=== PATIENT | male | born 1945 | race Caucasian/White ===

== ENCOUNTER 2021-12-16 12:32 | Outpatient (REF) | payer OTHER, SELFPAY ==
[2021-12-16 13:43] LABS: MANUAL DIFF FLAG NO
[2021-12-16 13:47] LABS: Basophils Percent Auto 0.5 % (0-2); Eosinophils Absolute Auto 0.2 X10*3/uL (0.0-0.4); Eosinophils Percent Auto 3.3 % (0-4); Hematocrit 39.7 % (42.0-52.0); Hemoglobin 13.4 g/dl (14.0-18.0); Imm Gran Abs Auto 0.01 X10*3/uL (0.00-0.03); Imm Gran Pct Auto 0.2 % (0.0-0.4); Lymphocytes Absolute Auto 1.7 X10*3/uL (1.2-4.9); Lymphocytes Percent Auto 30.4 % (20-40); Mean Corpuscular HGB Conc 33.8 g/dl (31.0-36.0); Mean Corpuscular Hemoglobin 31.9 pg (27.0-33.0); Mean Corpuscular Volume 94.5 fL (80.0-98.0); Monocytes Absolute Auto 0.4 X10*3/uL (0.1-1.2); Monocytes Percent Auto 7.8 % (2-11); Neutrophils Absolute Auto 3.2 x10*3/uL (2.0-8.3); Neutrophils Percent Auto 57.8 % (45-73); Platelet Count 215 X10*3/uL (160-400); Red Cell Distribution Width 12.1 % (11.0-16.0); White Blood Count 5.5 X10*3/uL (4.8-10.8)
[2021-12-16 14:24] LABS: Erythrocyte Sedimentation Rate 16 MM/HR (0-15)
[2021-12-16 14:34] LABS: Alanine Aminotransferase 21 U/L (0-40); Albumin Level 4.5 g/dL (3.5-5.0); Alkaline Phosphatase 59 U/L (39-117); Anion Gap 14 (12-20); Aspartate Amino Transferase 19 U/L (5-37); Bilirubin Total 0.6 mg/dL (0.0-1.0); Blood Urea Nitrogen 19 mg/dL (9-16); C Reactive Protein 0.05 mg/dL (< or = 0.50); Calcium 9.7 mg/dL (8.4-10.2); Carbon Dioxide 30 mmol/L (22-29); Chloride 100 mmol/L (96-108); Estimated Glomerular Filt Rate > 60; Glucose Random 100 mg/dL (60-115); Potassium 3.7 mmol/L (3.3-5.1); Sodium 140 mmol/L (135-145); Total Protein 6.9 g/dL (6.5-8.0)
[2021-12-19 13:32] LABS: HLA B27 Negative (Negative)
== END 2021-12-16 12:33 | disposition home or self-care (01) ==
LOC: HO.10HDL 12:32
PROVIDERS: Visit Provider Student in an Organized Health Care Education/Training Program
DX: M54.50 Low back pain, unspecified (principal); M16.0 Bilateral primary osteoarthritis of hip; M25.542 Pain in joints of left hand; M25.541 Pain in joints of right hand; G89.29 Other chronic pain; E11.42 Type 2 diabetes mellitus with diabetic polyneuropathy; Z79.899 Other long term (current) drug therapy
CPT/HCPCS: 36415; 80053; 85025; 85652; 86140; 86812; 99202

== ENCOUNTER 2021-12-17 07:47 | Outpatient (REF) | payer OTHER, SELFPAY ==
--- NOTE | ~2021-12-17 | XR_ITS ---
EXAMINATION: BILATERAL HAND AND WRIST X-RAY CLINICAL INFORMATION: Pain COMPARISON: None TECHNIQUE: 4 views of each hand and wrist FINDINGS: Left hand: Bone alignment is normal. No fracture or dislocation is seen. There is mild arthritis at the second MCP joint with joint space narrowing, osteophyte formation and some subchondral cysts in the second metacarpal head. There is mild arthritis at the first CARE HOME joint with small osteophytes. Joint spaces are otherwise normal. Soft tissues are normal. Right: Bone alignment is normal. No fracture or dislocation is seen. There is mild arthritis at the second MCP joints and first CARE [employer] joints with joint space narrowing and osteophyte formation. Joint spaces are otherwise normal. Soft tissues are normal. XR/XR hand wrist LT IMPRESSION: Mild arthritis at the first CARE HOME joints and second MCP joints bilaterally.
--- NOTE | ~2021-12-17 | XR_ITS ---
EXAMINATION: XR SACROILIAC JOINTS CLINICAL INFORMATION: Low back pain COMPARISON: Lumbar spine August 2011 TECHNIQUE: 3 views of the sacroiliac joints FINDINGS: Bones and soft tissues are normal. No fracture. Alignment is anatomic. Sacroiliac joint spaces are well-maintained without erosions or surrounding sclerosis. There are degenerative changes of the visualized lower lumbar spine. XR/XR sacroiliac joint min 3V IMPRESSION: Normal sacroiliac joints. Degenerative changes of the lower lumbar spine.
--- NOTE | ~2021-12-17 | XR_ITS ---
EXAMINATION: BILATERAL HAND AND WRIST X-RAY CLINICAL INFORMATION: Pain COMPARISON: None TECHNIQUE: 4 views of each hand and wrist FINDINGS: Left hand: Bone alignment is normal. No fracture or dislocation is seen. There is mild arthritis at the second MCP joint with joint space narrowing, osteophyte formation and some subchondral cysts in the second metacarpal head. There is mild arthritis at the first [employer] joint with small osteophytes. Joint spaces are otherwise normal. Soft tissues are normal. Right: Bone alignment is normal. No fracture or dislocation is seen. There is mild arthritis at the second MCP joints and first [employer] joints with joint space narrowing and osteophyte formation. Joint spaces are otherwise normal. Soft tissues are normal. XR/XR hand wrist RT IMPRESSION: Mild arthritis at the first [employer] joints and second MCP joints bilaterally.
--- NOTE | ~2021-12-17 | XR_ITS ---
EXAMINATION: XR BILATERAL HIPS WITH AP PELVIS CLINICAL INFORMATION: Pain COMPARISON: None TECHNIQUE: AP view of the pelvis and single views of each hip were obtained. FINDINGS: Right: Bone alignment is normal. No fracture or dislocation is seen. There is mild arthritis of the right hip joint with joint space narrowing and osseous formation. Soft tissues are normal. Left: Bone alignment is normal. No fracture or dislocation is seen. There is mild arthritis at the left hip joint with joint space narrowing and osteophyte formation. Soft tissues are unremarkable. XR/XR hips AUGIE min 3V IMPRESSION: Mild bilateral hip osteoarthritis.
--- NOTE | ~2021-12-17 | XR_ITS ---
EXAMINATION: XR LUMBOSACRAL SPINE WITH OBLIQUES CLINICAL INFORMATION: Low back pain. COMPARISON: None TECHNIQUE: AP, both oblique, and lateral views of the lumbar spine. Lateral view of the lumbosacral junction. FINDINGS: Bone alignment is normal. No fracture or dislocation is seen. There may be transitional anatomy or lumbarization of S1. Levels are designated with the top of the iliac crest at the L4-L5 disc space level. Bone alignment is normal. No fracture or dislocation is seen. There is mild disc space narrowing at L3-L4 and L4-L5 and spondylosis. There is lower lumbar spine facet arthritis. No pars defect is seen. There is mild atherosclerotic disease. XR/XR lumbar spine 4V min IMPRESSION: Probable transitional anatomy. Degenerative changes of the lower lumbar spine.
== END 2021-12-17 07:48 | disposition home or self-care (01) ==
LOC: HO.XRAY 07:47
PROVIDERS: PCP Physician Assistant; Visit Provider Student in an Organized Health Care Education/Training Program
DX: M25.541 Pain in joints of right hand (principal); M25.542 Pain in joints of left hand; M54.50 Low back pain, unspecified; M16.0 Bilateral primary osteoarthritis of hip
CPT/HCPCS: 72110; 72202; 73110; 73130; 73522

== ENCOUNTER 2021-12-20 07:09 | Day surgery (SDC) | payer OTHER, SELFPAY ==
[2021-12-16 14:23] VITALS: BMI 27.1
--- NOTE | 2021-12-19 10:37 | P.CONAN_ITS ---
Documented by User: Agnieszka Mejia NP 12/19/21 10:38 HPI - Anesthesia Eval Consult details Narrative: 76yo M for Colonoscopy PMFSH Active Problems Active Problems: All Active Problems (Updated 12/16/21 @ 12:36 by Mallika Bay MD) Low back pain, unspecified (Acute) Bilateral primary osteoarthritis of hip (Acute) Pain in joints of left hand (Acute) Joint pain in fingers of right hand (Acute) Screening for viral disease (Acute) Encounter for testing for latent tuberculosis infection (Acute) Diabetic neuropathy (Acute) Past Medical History Medical History BPH (benign prostatic hyperplasia) Dyslipidemia Herpes simplex Hypertension Psoriasis Type 2 diabetes mellitus Family History Family History Father Melanoma Mother Colitis Surgical History Surgical History H/O colonoscopy Hx of umbilical hernia repair S/P left rotator cuff repair Social History Social History Household Members: Spouse Alcohol intake: current Alcohol intake frequency: holidays/special occasions only Patient Tobacco Use Status: Former Tobacco user Quit Date: 1983 Use of substances other than those prescribed or required for medical reasons: No Are you DNR?: No Advance Directives: No Advance Directives Information Provided: Yes service: Yes Current occupational status: retired Meds Allergies Allergy/AdvReac Type Severity Reaction Status Date / Time No Known Allergies Allergy Unverified 12/16/21 11:07 Home Medications Medication Instructions Recorded Confirmed Last Taken Type acyclovir 400 mg tablet 400 mg PO TID PRN herpes outbreak 12/16/21 12/16/21 Unknown History aspirin 81 mg tablet,delayed 81 mg PO DAILY 12/16/21 12/16/21 Unknown History release (Adult Low Dose Aspirin) cetirizine 10 mg tablet (Allergy 10 mg PO DAILY PRN 12/16/21 12/16/21 Unknown History Relief (cetirizine)) cholecalciferol (vitamin D3) 25 25 mcg PO DAILY 12/16/21 12/16/21 Unknown History mcg (1,000 unit) tablet famotidine 20 mg tablet 20 mg PO BID PRN Acid Reflux 12/16/21 12/16/21 Unknown History fluocinonide 0.05 % topical 1 appl topical BID-QID PRN 12/16/21 12/16/21 Unknown History solution hydrochlorothiazide 12.5 mg capsule 12.5 mg PO DAILY 12/16/21 12/16/21 Unknown History ibuprofen 400 mg tablet 400 mg PO Q8H 12/16/21 12/16/21 Unknown History losartan 100 mg tablet 100 mg PO DAILY 12/16/21 12/16/21 12/20/21 History metformin 1,000 mg tablet 1,000 mg PO DAILY 12/16/21 12/16/21 Unknown History simvastatin 80 mg tablet 40 mg PO BEDTIME 12/16/21 12/16/21 Unknown History tamsulosin 0.4 mg capsule 0.4 mg PO BEDTIME 12/16/21 12/16/21 Unknown History Exam Exam Date and Time: December 19, 2021 1037 Height,Weight and Vital Signs: Height 5 ft 6 in Weight 76.204 kg Pertinent Lab Results Pertinent Lab Results: Laboratory Tests 12/16/21 12/16/21 12:40 12:40 WBC 5.5 Hgb 13.4 L Hct 39.7 L Plt Count 215 Sodium 140 Potassium 3.7 Chloride 100 Carbon Dioxide 30 H BUN 19 H Creatinine 0.93 Assessment and Plan Assessment Anesthesia Assessment: Chart Reviewed Documented by User: Ace De Leon MD 12/20/21 08:55 [facility] Past Medical History Medical History BPH (benign prostatic hyperplasia) Dyslipidemia Herpes simplex Hypertension Psoriasis Type 2 diabetes mellitus Family History Family History Father Melanoma Mother Colitis Family history of problems with anesthesia: No Surgical History Surgical History H/O colonoscopy Hx of umbilical hernia repair S/P left rotator cuff repair History of Problems with Anesthesia: No Social History Social History Household Members: Spouse Alcohol intake: current Alcohol intake frequency: holidays/special occasions only Patient Tobacco Use Status: Former Tobacco user Quit Date: 1983 Use of substances other than those prescribed or required for medical reasons: No Are you DNR?: No Advance Directives: No Advance Directives Information Provided: Yes service: Yes Current occupational status: retired Meds Allergies Allergy/AdvReac Type Severity Reaction Status Date / Time No Known Allergies Allergy Unverified 12/16/21 11:07 Home Medications Medication Instructions Recorded Confirmed Last Taken Type acyclovir 400 mg tablet 400 mg PO TID PRN herpes outbreak 12/16/21 12/16/21 Unknown History aspirin 81 mg tablet,delayed 81 mg PO DAILY 12/16/21 12/16/21 Unknown History release (Adult Low Dose Aspirin) cetirizine 10 mg tablet (Allergy 10 mg PO DAILY PRN 12/16/21 12/16/21 Unknown History Relief (cetirizine)) cholecalciferol (vitamin D3) 25 25 mcg PO DAILY 12/16/21 12/16/21 Unknown History mcg (1,000 unit) tablet famotidine 20 mg tablet 20 mg PO BID PRN Acid Reflux 12/16/21 12/16/21 Unknown History fluocinonide 0.05 % topical 1 appl topical BID-QID PRN 12/16/21 12/16/21 Unknown History solution hydrochlorothiazide 12.5 mg capsule 12.5 mg PO DAILY 12/16/21 12/16/21 Unknown History ibuprofen 400 mg tablet 400 mg PO Q8H 12/16/21 12/16/21 Unknown History losartan 100 mg tablet 100 mg PO DAILY 12/16/21 12/16/21 12/20/21 History metformin 1,000 mg tablet 1,000 mg PO DAILY 12/16/21 12/16/21 Unknown History simvastatin 80 mg tablet 40 mg PO BEDTIME 12/16/21 12/16/21 Unknown History tamsulosin 0.4 mg capsule 0.4 mg PO BEDTIME 12/16/21 12/16/21 Unknown History Exam Airway Mallampati Class: II TM Dist: >3cm Neck ROM: Full Denture: Upper (fixed and doesnt come out as per patient) Loose/Missing/Broken Teeth: Yes Heart: [id number] Lungs: cta b/l Assessment and Plan Assessment Anesthesia Assessment: Anesthesia Plan Discussed Final Anesthetic Review Family History of Problems with Anesthesia: No History of Problems with Anesthesia: No NPO: Yes ASA Class: III Final Preanesthetic Review: No Changes in Pt Med Stat, Meds/Allgs Chart Reviewed, Consent Obtained/Reviewed and Anes Risks/Benef Reviewed Patient Risk: Intermediate Procedure Risk: Intermediate Assessment/Block/Sedation in SS: Assess/Block/Sedation-SS Anesthetic Plan Anesthetic Plan: MAC: and Agree w/ Assess. and Plan Disposition: Standard PACU
[2021-12-20 08:05] VITALS: BMI 26.1
[2021-12-20 08:19] VITALS: BP 128/79; PULSE 82; RESP 16; TEMP 36.4; O2SAT 98
[2021-12-20] MEDS: Lactated Ringers 1,000 ML 100 ML IVCONT (08:26)
[2021-12-20 08:31] LABS: Glucose, Whole Blood 113 mg/dL (60-115)
--- NOTE | 2021-12-20 09:07 | MHC.SHP ---
Pre-Procedural Eval Section A Date of Service: 12/20/21 The patient is an INPATIENT: No Changes since office visit: No Cold of Flu in the past 2 weeks, No New Medical Problems, No Changes in Medication and No Patient answered all questions The History & Physical has been completed within 30 days and I have reviewed it.: Yes Section B Chief Complaint: Family history of malignant neoplasm,screening Allergies: Allergies Allergy/AdvReac Type Severity Reaction Status Date / Time No Known Allergies Allergy Unverified 12/16/21 11:07 Plan I have reviewed the history and physical and performed a pertinent physical examination on my patient. No changes have occurred unless specified.
[2021-12-20 09:38] VITALS: BP 88/52; PULSE 72; RESP 12; TEMP 36.2; O2SAT 98
--- NOTE | 2021-12-20 09:39 | PM.OP ---
Brief Operative Note Date of Service: 12/20/21 Pre-op diagnosis: screening Post-op diagnosis: same Procedure: colonoscopy Surgeon: Ozzie Azul Anesthesia: MAC Was an Netbackup Administrator used for this Procedure?: No Estimated blood loss (mL): 2 Condition: stable Disposition: PACU
[2021-12-20 09:53] VITALS: BP 105/63; PULSE 79; RESP 16; TEMP 36.2; O2SAT 96
--- NOTE | 2021-12-20 23:20 | OP_ITS ---
SURGEON: Ozzie Azul MD INDICATIONS: Colon cancer screening and family history of colon cancer. PREOPERATIVE DIAGNOSIS: POSTOPERATIVE DIAGNOSIS: PROCEDURE PERFORMED: Colonoscopy to the terminal ileum with biopsy. ESTIMATED BLOOD LOSS: COMPLICATIONS: ANESTHESIA: Monitored anesthesia care. ASSISTANTS: SPECIMENS: DESCRIPTION OF PROCEDURE: History and physical performed. The risks and benefits of the procedure were explained to the patient. Informed consent was obtained. The patient was placed in left lateral decubitus position. A digital rectal exam was performed and was found to be normal. The Olympus pediatric videocolonoscope was introduced into the rectum and advanced to the cecum without difficulty. The cecum was identified by transillumination, palpation, and identification of the ileocecal valve. Examination was performed. The scope was removed. He tolerated the procedure well and was returned to recovery room in stable condition. FINDINGS: The terminal ileum was normal. Visualized colonic mucosa was normal. The quality of the prep was good. In the rectum, there was a less than 5 mm sessile polyp removed with biopsy forceps. There was mild sigmoid diverticulosis. Retroflexed examination showed moderate-sized internal hemorrhoids. IMPRESSION: Colon polyp. RECOMMENDATION: Follow up with the biopsy results. MD GENE Montaño/LINDA / [id number]
== END 2021-12-20 10:18 | disposition home or self-care (01) ==
PROVIDERS: PCP Physician Assistant; Visit Provider Internal Medicine Gastroenterology
PROC: 0DJD8ZZ Inspection of Lower Intestinal Tract, Via Natural or Artificial Opening Endoscopic (ICD-10-PCS; CPT 45378; principal; 2021-12-20 08:50)
DX: Z12.11 Encounter for screening for malignant neoplasm of colon (principal); Z80.0 Family history of malignant neoplasm of digestive organs; Z86.010 Personal history of colon polyps; K57.30 Diverticulosis of large intestine without perforation or abscess without bleeding; K64.8 Other hemorrhoids; E78.00 Pure hypercholesterolemia, unspecified; I10 Essential (primary) hypertension; E11.9 Type 2 diabetes mellitus without complications; Z79.82 Long term (current) use of aspirin; Z79.84 Long term (current) use of oral hypoglycemic drugs; Z79.899 Other long term (current) drug therapy; Z87.891 Personal history of nicotine dependence
CPT/HCPCS: 45380; 82947; 88305; J2370

== ENCOUNTER → 2022-01-07 07:21 | Outpatient (BNVA) | payer OTHER, SELFPAY | PROVIDERS: PCP Physician Assistant; Visit Provider Student in an Organized Health Care Education/Training Program | DX: L40.9 Psoriasis, unspecified (principal); M25.552 Pain in left hip | CPT/HCPCS: 99212 ==

== ENCOUNTER 2023-02-03 08:14 | Outpatient (AMB) | payer OTHER, SELFPAY ==
--- NOTE | 2023-02-03 08:33 | MHC.OFFVIS ---
Intake Vital Signs 02/03/23 08:35 Height 5 ft 6 in Weight 169 lb 5.04 oz BMI 27.3 BP 114/76 Blood Pressure Location Rt brachial Position Sitting Pulse 81 Intake Visit Reasons: NPV/SOB/W. 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 Boat Required: No Accompanied by: Self / Same As Patient Allergies No Known Allergies Allergy (Verified 02/03/23 08:35) Medication List - Last Reconciled 02/03/23 by Jaime Nowak MD acyclovir 400 mg PO TID PRN cetirizine (Allergy Relief (cetirizine)) 10 mg PO DAILY PRN cholecalciferol (vitamin D3) 25 mcg PO DAILY famotidine 20 mg PO BID PRN fluocinonide 0.05% 1 appl topical BID-QID PRN hydrochlorothiazide 12.5 mg PO DAILY ibuprofen 400 mg PO Q8H PRN losartan 100 mg PO DAILY metformin 1,000 mg PO DAILY simvastatin 40 mg PO BEDTIME tamsulosin 0.4 mg PO BEDTIME HPI HPI Comments History of Present Illness Details Cristiano is here for consultation regarding shortness of breath. No history of any coronary artery disease or myocardial infarction or cardiomyopathy or in fact anything of cardiac nature. On medications for hypertension, diabetes as well as dyslipidemia. He plays golf regularly, almost once a week. He states he was also walking about 5 miles a day till recently. He had to stop that because of some aches and pains in his legs. He has been noticing episodes of shortness of breath whenever he is going up stairs and is also getting weight. This is somewhat of a relatively new finding. He also gets random episodes of chest aches but not exertional. Hence here for further evaluation. [facility] Medical History (Updated 02/03/23 @ 08:44 by Jaime Nowak MD) Encounter for testing for latent tuberculosis infection Screening for viral disease BPH (benign prostatic hyperplasia) Dyslipidemia Hypertension Joint pain in fingers of right hand Pain in joints of left hand Low back pain, unspecified Herpes simplex Psoriasis Type 2 diabetes mellitus Surgical History H/O colonoscopy S/P left rotator cuff repair Hx of umbilical hernia repair Family History Father Melanoma Mother Colitis Social History Household Members: Spouse Alcohol intake: current Alcohol intake frequency: holidays/special occasions only Patient Tobacco Use Status: Former Tobacco user Quit Date: 1983 service: Yes Current occupational status: retired Review of Systems Const Denies weakness ENT Denies dizziness Card Denies chest pain, Denies chest pain with activity, Denies syncope, Denies rapid heart rate, Denies pedal edema, Denies edema, Denies leg edema, Denies lightheadedness, Denies palpitations, Denies dyspnea, Denies dyspnea on exertion and Denies orthopnea Resp Denies cough, Denies dyspnea and Denies dyspnea on exertion GI Denies hematochezia and Denies change in stool character Musc Denies abnormal gait, Denies muscle cramps, Denies muscle weakness, Denies numbness, Denies radiating pain into limb and Denies tingling Neuro Denies abnormal gait, Denies dizziness, Denies syncope, Denies numbness, Denies tingling and Denies weakness Endo Denies palpitations Physical Exam Vital Signs: Last Vital Signs Pulse 81 02/03/23 08:35 BP 114/76 02/03/23 08:35 BMI result Body Mass Index 27.3 Const General: comfortable and no acute distress Orientation/consciousness: patient oriented x3 HEENT Other: Unremarkable Head: Yes normal to inspection Neck Neck: Yes normal visual inspection Chest Chest palpation & inspection: normal inspection of the chest Resp Auscultation: clear to auscultation bilaterally Cardio Palpation: normal PMI Heart sounds: S1 normal heart sound present, S2 normal heart sound present, no gallops, no murmurs and no rubs GI Palpation (GI): Soft to palpation Back/Spine/Pelvis Other: unremarkable Skin General skin exam: no rashes or lesions noted Neuro General: patient oriented x3 Extrem General: Yes normal to inspection Psych Mental Status: mental status grossly normal Office Procedures EKG Details: EKG with sinus rhythm at 81/Min; no significant ST-T changes and otherwise unremarkable. [place]. [id number]-[id number], Complete Assessment & Plan Assessment & Plan (1) SOB (shortness of breath): Code(s): R06.02 - Shortness of breath (2) Precordial chest pain: Code(s): R07.2 - Precordial pain Plan Multiple risk factors, shortness of breath on exertion, atypical chest discomfort. We will start with echocardiogram and stress test for further evaluation. Further plan based on the findings. Orders: Orders CA echo transthoracic complete Today I25.10 - Atherosclerotic heart disease of [place] coronary artery without angina pectoris, R07.2 - Precordial pain CA stress test Today R07.2 - Precordial pain NM cardiolite stress test Today R07.2 - Precordial pain Coding Level of Care Code New Pt Level 4 (26794) Diagnoses SOB (shortness of breath) R06.02 Precordial chest pain R07.2 CPT Codes EKG - CPT: 15930-[id number], Complete ([id number])
[2023-02-03 08:35] VITALS: BP 114/76; PULSE 81; BMI 27.3
== END 2023-02-03 08:53 | disposition home or self-care (01) ==
PROVIDERS: PCP Physician Assistant; Visit Provider Internal Medicine
DX: R06.02 Shortness of breath (principal); R07.2 Precordial pain
CPT/HCPCS: 93010; 99204

== ENCOUNTER → 2023-02-03 08:14 | Outpatient (BNVA) | payer OTHER, SELFPAY | PROVIDERS: PCP Physician Assistant; Visit Provider Internal Medicine | DX: R06.02 Shortness of breath (principal); R07.2 Precordial pain | CPT/HCPCS: 93005; 99202 ==

== ENCOUNTER → 2023-03-20 07:49 | Outpatient (REF) | payer OTHER, SELFPAY ==
--- NOTE | ~2023-03-20 | NM_ITS ---
EXERCISE MYOCARDIAL PERFUSION STUDY INDICATION: Coronary disease, assess for ischemia TECHNIQUE: The patient was brought in for an exercise perfusion study on 03/20/2023. Patient performed exercise as per Rosalino protocol and was injected 25 mCi of sestamibi once target heart rate was achieved. Images were obtained using the SPECT gamma camera interlaced with the gating device. Images were obtained in supine position. Resting perfusion study was performed on 03/23/2023. Patient was administered 25 mCi of sestamibi intravenously at rest. Images were then obtained in supine position. Images were processed with the software and compared side to side in short axis, horizontal long axis and vertical long axis views. Total DLP 85mGy-cm. FINDINGS: Raw images were reviewed. The stress perfusion study showed diminished tracer uptake in the mid to distal septum. Basal to mid inferoseptal wall. There is improvement with CT attenuation correction except in the most distal septal wall. There are components of diaphragmatic attenuation artifact. The gated study shows normal LV systolic function with calculated LVEF of 70%. LV cavity is normal in size. The gated study shows reduced thickening or contractility in the distal septum as well as basal to mid inferior septum. Resting study shows no significant perfusion abnormality. Gating at rest reveals normal wall motion with ejection fraction at 65%. The findings are consistent with reversible perfusion defect in the mid to distal septum; basal to mid inferior septum. Components of diaphragmatic attenuation artifact. NM/NM cardiolite stress test IMPRESSION: 1. Myocardial perfusion imaging study shows possible distal septal ischemia. Basal to mid inferoseptal reversible defect could be from diaphragmatic attenuation artifact. 2. Gated LVEF is 70% during stress and 65% during rest. 3. Transient ischemic dilatation not present. EKG component of the test reported separately.
== END ==
LOC: HO.CARD 07:49
PROVIDERS: PCP Physician Assistant; Visit Provider Internal Medicine
DX: R07.2 Precordial pain (principal); I25.10 Atherosclerotic heart disease of native coronary artery without angina pectoris
CPT/HCPCS: 78452; 93017; 93306; A9500; Q9957

== ENCOUNTER → 2023-03-20 07:53 | Outpatient (BNV) | payer OTHER, SELFPAY | PROVIDERS: PCP Physician Assistant; Visit Provider Nurse Practitioner | DX: R07.2 Precordial pain (principal); R93.1 Abnormal findings on diagnostic imaging of heart and coronary circulation | CPT/HCPCS: 78452; 93016; 93018; 93306 ==

== ENCOUNTER 2023-03-24 13:32 | Outpatient (AMB) | payer OTHER, SELFPAY ==
[2023-03-24 13:50] VITALS: BP 120/80; PULSE 83; BMI 26.9
--- NOTE | 2023-03-24 13:50 | A.OFFVIS_ITS ---
Intake Vital Signs 03/24/23 13:50 Height 5 ft 6 in Weight 166 lb 10.711 oz BMI 26.9 BP 120/80 Blood Pressure Location Lt brachial Position Sitting Pulse 83 Pulse Source Pulse Oximeter Intake Visit Reasons: s/p testing HS Breastfeeding Educator Required: No Chief School Finance Officer: Chief School Finance Officer Present Allergies No Known Allergies Allergy (Verified 03/24/23 13:53) Medication List - Last Reconciled 03/24/23 by Kimmy Gallegos NP-C acyclovir 400 mg PO TID PRN cetirizine (Allergy Relief (cetirizine)) 10 mg PO DAILY PRN cholecalciferol (vitamin D3) 25 mcg PO DAILY famotidine 20 mg PO BID PRN fluocinonide 0.05% 1 appl topical BID-QID PRN hydrochlorothiazide 12.5 mg PO DAILY ibuprofen 400 mg PO Q8H PRN losartan 100 mg PO DAILY metformin 1,000 mg PO DAILY simvastatin 40 mg PO BEDTIME tamsulosin 0.4 mg PO BEDTIME HPI s/p testing HS HPI Details Cristiano is a 78-year-old male past medical history of hypertension, hyperlipidemia, diabetes who is being evaluated for shortness of breath with activity. He underwent an echocardiogram and nuclear stress test and now presents for follow-up. Today he reports that he is noticing increasing shortness of breath with activities since his last visit here in January. He says when he climbs stairs he feels very winded at the top in this is not his usual. He also notices a charley horse type sensation in his left chest which occurs randomly. No lightheadedness, presyncope, syncope, falls. No shortness of breath at rest, PND, orthopnea or edema. He takes all his meds as directed. is present. [facility] Medical History Encounter for testing for latent tuberculosis infection Screening for viral disease BPH (benign prostatic hyperplasia) Dyslipidemia Hypertension Joint pain in fingers of right hand Pain in joints of left hand Low back pain, unspecified Herpes simplex Psoriasis Type 2 diabetes mellitus Surgical History H/O colonoscopy S/P left rotator cuff repair Hx of umbilical hernia repair Family History Father Melanoma Mother Colitis Social History Household Members: Spouse Alcohol intake: current Alcohol intake frequency: holidays/special occasions only Patient Tobacco Use Status: Former Tobacco user Quit Date: 1983 service: Yes Current occupational status: retired Review of Systems Const All systems reviewed & are unremarkable except as noted in HPI and below ENT Denies dizziness Card Details: Mild charley horse type discomfort periodically left chest Reports chest pain, Denies chest pain at rest, Denies chest pain with activity, Denies rapid heart rate, Denies pedal edema, Denies edema, Denies leg edema, Denies lightheadedness, Denies palpitations, Denies dyspnea, Reports dyspnea on exertion and Denies orthopnea Resp Denies cough, Denies dyspnea and Reports dyspnea on exertion GI Denies hematochezia and Denies change in stool character Musc Denies abnormal gait, Denies limited range of motion, Denies muscle cramps, Denies muscle weakness, Denies numbness, Denies radiating pain into limb, Denies stiffness and Denies tingling Neuro Denies abnormal gait, Denies dizziness, Denies numbness and Denies tingling Endo Denies palpitations Physical Exam Vital Signs: Last Vital Signs Pulse 83 03/24/23 13:50 BP 120/80 03/24/23 13:50 BMI result Body Mass Index 26.9 Const General: cooperative, healthy appearing, comfortable and no acute distress Orientation/consciousness: patient oriented x3 Neck Neck: Yes normal visual inspection and Yes no JVD Chest Chest palpation & inspection: normal inspection of the chest Resp Effort & Inspection: normal respiratory effort Auscultation: clear to auscultation bilaterally, no rales, no rhonchi and no wheezes Cardio Jugular venous distension: no JVD Rate: regular rate Rhythm: regular rhythm Heart sounds: S1 normal heart sound present, S2 normal heart sound present, no murmurs and no rubs Neuro General: patient oriented x3 Extrem General: Yes normal to inspection and No no pedal edema Psych Appearance: grossly normal Mental Status: mental status grossly normal Speech and movement: Normal speech and movement present Assessment & Plan Assessment & Plan (1) SOB (shortness of breath): Code(s): R06.02 - Shortness of breath Plan: Cardiac evaluation for new shortness of breath with physical activity such as stair climbing. Also reports of a Charley horse sensation to his left chest region which is new, random occurrence. Cardiac risk factors of hypertension, hyperlipidemia, diabetes. No known history of heart disease. He underwent a echocardiogram on 03/20/2022 showing EF 55-60%, normal RV, increased filling pressures. An exercise nuclear stress test was done on 03/20/2022 with exercise 5 minutes, brisk chronotropic response, mild shortness of breath, no EKG changes, with nuclear imaging showing possible distal septal ischemia also basal to mid inferior septal reversible defect which could be from diaphragm attenuation. Today he reports that his symptom of shortness of breath with activity is increasing. Test results reviewed with him in detail. Need for cardiac catheterization discussed. Risks of the procedure including bleeding, infection, CHEPE, mi, stroke reviewed. He is agreeable to proceed. Will check blood work today including a basic metabolic profile, CBC and PT INR. No contrast dye allergy. Will order left heart catheterization question PCI. Will start on aspirin 81 mg daily. He is on simvastatin 40 mg daily. Will start metoprolol XL 25 mg daily. Cardiology follow-up 2 weeks post procedure. Emergency care if ever needed for symptoms. (2) Precordial chest pain: Code(s): R07.2 - Precordial pain Plan: As above (3) Abnormal nuclear cardiac imaging test: Code(s): R93.1 - Abnormal findings on diagnostic imaging of heart and coronary circulation Plan: As above (4) Pre-op evaluation: Code(s): Z01.818 - Encounter for other preprocedural examination Plan: Preop cardiac catheterization. (5) Hypertension: Code(s): I10 - Essential (primary) hypertension Plan: Normal range today. He is on losartan 100 mg daily. Will be adding low-dose metoprolol. If he has symptoms of lightheadedness then plan to reduce losartan dose by half. Plan Time spent on chart review, documentation, interview and assessment Orders: Orders Complete Blood Count Auto Diff Today R06.02 - Shortness of breath, R93.1 - Abnormal findings on diagnostic imaging of heart and coronary circulation Basic Metabolic Panel Today R06.02 - Shortness of breath, R93.1 - Abnormal f indings on diagnostic imaging of heart and coronary circulation Cardiac Cath LT w PCI Today R06.02 - Shortness of breath, R07.2 - Precordial pain, R93.1 - Abnormal findings on diagnostic imaging of heart and coronary circulation Prothrombin Time INR Today R06.02 - Shortness of breath, R93.1 - Abnormal findings on diagnostic imaging of heart and coronary circulation Medications: New metoprolol succinate ER 25 mg PO DAILY 30 tabs 2RF Coding Level of Care Code Est Pt Level 4 (66797) Diagnoses SOB (shortness of breath) R06.02 Precordial chest pain R07.2 Abnormal nuclear cardiac imaging test R93.1 Pre-op evaluation Z01.818 Hypertension I10 Time Spent (min) 30
== END 2023-03-24 14:37 | disposition home or self-care (01) ==
PROVIDERS: PCP Physician Assistant; Referring Provider Physician Assistant; Visit Provider Nurse Practitioner Family
DX: R06.02 Shortness of breath (principal); R07.2 Precordial pain; R93.1 Abnormal findings on diagnostic imaging of heart and coronary circulation; Z01.818 Encounter for other preprocedural examination; I10 Essential (primary) hypertension
CPT/HCPCS: 99214

== ENCOUNTER 2023-03-24 13:32 | Outpatient (REF) | payer OTHER, SELFPAY ==
[2023-03-24 14:52] LABS: MANUAL DIFF FLAG NO
[2023-03-24 15:26] LABS: Basophils Absolute Auto 0.1 X10*3/uL (0.0-0.2); Basophils Percent Auto 0.7 % (0-2); Eosinophils Absolute Auto 0.2 X10*3/uL (0.0-0.4); Eosinophils Percent Auto 3.4 % (0-4); Hematocrit 42.9 % (42.0-52.0); Hemoglobin 14.7 g/dl (14.0-18.0); Imm Gran Abs Auto 0.02 X10*3/uL (0.00-0.03); Imm Gran Pct Auto 0.3 % (0.0-0.4); Lymphocytes Absolute Auto 1.9 X10*3/uL (1.2-4.9); Lymphocytes Percent Auto 27.9 % (20-40); Mean Corpuscular HGB Conc 34.3 g/dl (31.0-36.0); Mean Corpuscular Hemoglobin 32.3 pg (27.0-33.0); Mean Corpuscular Volume 94.3 fL (80.0-98.0); Mean Platelet Volume 9.6 fL (9.4-12.4); Monocytes Absolute Auto 0.6 X10*3/uL (0.1-1.2); Monocytes Percent Auto 8.4 % (2-11); Neutrophils Percent Auto 59.3 % (45-73); Platelet Count 240 X10*3/uL (160-400); Red Blood Count 4.55 X10*6/uL (4.60-5.80); Red Cell Distribution Width 11.9 % (11.0-16.0); White Blood Count 6.7 X10*3/uL (4.8-10.8)
[2023-03-24 15:35] LABS: INTERNATIONAL NORM RATIO 0.9 (0.9-1.1)
[2023-03-24 15:59] LABS: Anion Gap 13 (12-20); Blood Urea Nitrogen 20 mg/dL (9-16); Carbon Dioxide 28 mmol/L (22-29); Chloride 101 mmol/L (96-108); Estimated Glomerular Filt Rate > 60; Glucose Random 108 mg/dL (60-115); Potassium 3.9 mmol/L (3.3-5.1); Sodium 138 mmol/L (135-145)
== END 2023-03-24 13:33 | disposition home or self-care (01) ==
LOC: HO.LAB 13:32
PROVIDERS: PCP Physician Assistant; Visit Provider Nurse Practitioner Family
DX: Z01.818 Encounter for other preprocedural examination (principal); R06.02 Shortness of breath; R93.1 Abnormal findings on diagnostic imaging of heart and coronary circulation; I10 Essential (primary) hypertension; E78.5 Hyperlipidemia, unspecified; R07.2 Precordial pain; Z79.899 Other long term (current) drug therapy
CPT/HCPCS: 36415; 80048; 85025; 85610; 99212

== ENCOUNTER → 2023-04-02 23:59 | Outpatient (BNV) | payer OTHER, SELFPAY | PROVIDERS: PCP Physician Assistant; Visit Provider Internal Medicine Cardiovascular Disease | DX: I20.89 Other forms of angina pectoris (principal); R93.1 Abnormal findings on diagnostic imaging of heart and coronary circulation | CPT/HCPCS: 93458; 99152 ==

== ENCOUNTER 2023-04-16 08:23 | Outpatient (AMB) | payer OTHER, SELFPAY ==
--- NOTE | 2023-04-16 08:51 | A.OFFVIS_ITS ---
Intake Vital Signs 04/16/23 08:52 Height 5 ft 6 in Weight 169 lb 5.04 oz BMI 27.3 BP 120/82 Blood Pressure Location Lt brachial Position Sitting Pulse 68 Pulse Source Monitor Intake Visit Reasons: 2 wk s/p cath Information Assurance Officer Required: No Internship Coordinator: Internship Coordinator Present Allergies No Known Allergies Allergy (Verified 04/16/23 08:54) Medication List - Last Reconciled 04/16/23 by LUIS ANGEL TanC acyclovir 400 mg PO TID PRN cetirizine (Allergy Relief (cetirizine)) 10 mg PO DAILY PRN cholecalciferol (vitamin D3) 25 mcg PO DAILY famotidine 20 mg PO BID PRN fluocinonide 0.05% 1 appl topical BID-QID PRN hydrochlorothiazide 12.5 mg PO DAILY ibuprofen 400 mg PO Q8H PRN losartan 100 mg PO DAILY metformin 1,000 mg PO DAILY metoprolol succinate ER 25 mg PO DAILY simvastatin 40 mg PO BEDTIME tamsulosin 0.4 mg PO BEDTIME HPI 2 wk s/p cath HPI Details Cristiano is a 78-year-old male with past medical history of hypertension, hyperlipidemia, diabetes who was being evaluated for shortness of breath and fatigue with activity. He recently underwent a cardiac catheterization and now presents for follow-up. Today he reports that he continues to have symptoms of feeling short of breath and very fatigued when he tries to do any physical activity, even getting dressed in the morning. His symptoms have been overall unchanged since his last visit. Had started on metoprolol which made no difference in his symptoms. He previously described a Charley horse type sensation occurring in his left lower chest randomly. He still has that periodically and it is not associated with his other symptoms. No lightheadedness, presyncope, syncope, falls. No shortness of breath at rest, PND, orthopnea or edema. He is taking all meds as directed. His is present. [facility] Medical History Encounter for testing for latent tuberculosis infection Screening for viral disease BPH (benign prostatic hyperplasia) Dyslipidemia Hypertension Joint pain in fingers of right hand Pain in joints of left hand Low back pain, unspecified Herpes simplex Psoriasis Type 2 diabetes mellitus Surgical History H/O colonoscopy S/P left rotator cuff repair Hx of umbilical hernia repair Family History Father Melanoma Mother Colitis Social History Household Members: Spouse Alcohol intake: current Alcohol intake frequency: holidays/special occasions only Patient Tobacco Use Status: Former Tobacco user Quit Date: 1983 service: Yes Current occupational status: retired Review of Systems Const All systems reviewed & are unremarkable except as noted in HPI and below Reports fatigue ENT Denies dizziness Card Reports chest pain, Denies chest pain at rest, Denies chest pain with activity, Denies rapid heart rate, Denies pedal edema, Denies edema, Denies leg edema, Denies lightheadedness, Denies palpitations, Reports dyspnea, Reports dyspnea on exertion and Denies orthopnea Resp Denies cough, Reports dyspnea and Reports dyspnea on exertion GI Denies hematochezia and Denies change in stool character Musc Denies abnormal gait, Reports limited range of motion, Reports muscle cramps, De nies muscle weakness, Denies numbness, Denies radiating pain into limb, Denies stiffness and Denies tingling Neuro Denies abnormal gait, Denies dizziness, Denies numbness and Denies tingling Endo Reports fatigue and Denies palpitations Physical Exam Vital Signs: Last Vital Signs Pulse 68 04/16/23 08:52 BP 120/82 04/16/23 08:52 BMI result Body Mass Index 27.3 Const General: cooperative, healthy appearing, comfortable and no acute distress Orientation/consciousness: patient oriented x3 Neck Neck: Yes normal visual inspection and Yes no JVD Resp Effort & Inspection: normal respiratory effort Auscultation: clear to auscultation bilaterally, no crackles, no rales, no rhonchi and no wheezes Cardio Jugular venous distension: no JVD Rate: regular rate Rhythm: regular rhythm Heart sounds: S1 normal heart sound present, S2 normal heart sound present, no murmurs and no rubs Neuro General: patient oriented x3 Extrem General: Yes normal to inspection, No no pedal edema and No calf tenderness Psych Appearance: grossly normal Mental Status: mental status grossly normal Speech and movement: Normal speech and movement present Office Procedures EKG Details: Today, read by me, normal sinus rhythm, nonspecific T-wave abnormality, no change from prior EKG, rate 68, QTC 433 milliseconds [id number], Complete Assessment & Plan Assessment & Plan (1) SOB (shortness of breath): Code(s): R06.02 - Shortness of breath Plan: Cardiac evaluation for newer shortness of breath and fatigue with physical activity such as getting dressed in the morning, walking and stair climbing. Also reports of a Charley horse sensation to his left lower chest region which is occasional and random occurrence. Cardiac risk factors of hypertension, hyperlipidemia, diabetes. No known history of heart disease. He underwent a echocardiogram on 03/20/2022 showing EF 55-60%, normal RV, increased filling pressures. An exercise nuclear stress test was done on 03/20/2022 with exercise 5 minutes, brisk chronotropic response, mild shortness of breath, no EKG changes, with nuclear imaging showing possible distal septal ischemia also basal to mid inferior septal reversible defect which could be from diaphragm attenuation. He underwent cardiac catheterization on 04/02/2023 showing normal coronary arteries. His right radial catheterization site is well healed. Continues to report same symptoms, not increasing. Cardiac testing shows no clear cardiac reason for his shortness of breath, fatigue and Charley horse sensation. Recommend evaluate for noncardiac causes. At this time will have him stop daily aspirin and metoprolol which were added last visit. Continue all other medications without change. He will follow-up with his primary care doctor, Dr. Willis at the [place]. signs and symptoms of true angina reviewed with him. Cardiology follow-up as needed. (2) S/P cardiac cath: Comment: 04/02/23 Normal coronaries Code(s): Z98.890 - Other specified postprocedural states Plan: Right radial catheterization site well healed (3) Precordial chest pain: Code(s): R07.2 - Precordial pain Plan: Atypical chest discomfort. Noncardiac in nature (4) Abnormal nuclear cardiac imaging test: Code(s): R93.1 - Abnormal findings on diagnostic imaging of heart and coronary circulation Plan: False abnormal (5) Hypertension: Code(s): I10 - Essential (primary) hypertension Plan: Normal range today. He is on losartan and metoprolol. Metoprolol added last visit when there was concern for CAD. His cardiac catheterization is normal. Will be stopping metoprolol. Plan Time spent on chart review, documentation, interview and assessment Coding Level of Care Code Est Pt Level 3 (99802) Diagnoses SOB (shortness of breath) R06.02 S/P cardiac cath Z98.890 Precordial chest pain R07.2 Abnormal nuclear cardiac imaging test R93.1 Hypertension I10 CPT Codes EKG - CPT: [id number]-[id number], Complete ([id number]) Time Spent (min) 24
[2023-04-16 08:52] VITALS: BP 120/82; PULSE 68; BMI 27.3
== END 2023-04-16 09:17 | disposition home or self-care (01) ==
PROVIDERS: PCP Physician Assistant; Visit Provider Nurse Practitioner Family
DX: R06.02 Shortness of breath (principal); Z98.890 Other specified postprocedural states; R07.2 Precordial pain; R93.1 Abnormal findings on diagnostic imaging of heart and coronary circulation; I10 Essential (primary) hypertension
CPT/HCPCS: 93010; 99213

== ENCOUNTER → 2023-04-16 08:23 | Outpatient (BNVA) | payer OTHER, SELFPAY | PROVIDERS: PCP Physician Assistant; Visit Provider Nurse Practitioner Family | DX: R06.02 Shortness of breath (principal); R07.2 Precordial pain; R93.1 Abnormal findings on diagnostic imaging of heart and coronary circulation; I10 Essential (primary) hypertension; Z79.899 Other long term (current) drug therapy | CPT/HCPCS: 93005; 99212 ==

== ENCOUNTER 2024-02-09 09:45 | Emergency (ER) | payer OTHER, SELFPAY ==
--- NOTE | ~2024-02-09 | XR_ITS ---
EXAMINATION: XR SHOULDER, LEFT CLINICAL INFORMATION: Pain after lifting. COMPARISON: None available. TECHNIQUE: AP external rotation, Grashey, scapular Y, and axillary views of the left shoulder. FINDINGS: Degenerative changes in the acromioclavicular joint with joint space narrowing and hypertrophic change. Degenerative changes in the glenohumeral joint with inferior hypertrophic change. Narrowing of the subacromial space. Small ossifications lateral to the acromion. Periosteal reaction along the inferior lateral aspect of the scapula. XR/XR shoulder LT min 2V IMPRESSION: 1. Degenerative changes in the acromioclavicular and glenohumeral joints. 2. Narrowing of the subacromial space. 3. Periosteal reaction along the inferior lateral aspect of the scapula. 4. Diffuse demineralization with focal demineralization in the humeral head. Electronically signed by: Mleinda Guadalupe MD 02/09/2024 12:15 PM [facility]
[2024-02-09 10:10] VITALS: BP 140/72; PULSE 91; RESP 20; TEMP 36.8; O2SAT 98; BMI 27.8
--- OUTSIDE RECORDS SUMMARY | 2024-02-09 12:31 | XMS_ITS | Patient Health Record ---
Author Organization [facility] Address [address] [place] [id number] Care Team Providers Care Technical Staff Engineer Name Role Phone Cristiano Damico Primary Care Provider Un available Ozzie Azul Jr Unavailable ALLERGIES No Known Allergies REASON FOR REFERRAL No Information MEDICATIONS Medication SIG (Take, Route, Frequency, Duration) Notes Start Date End Date Status Famotidine 20 MG 1 tablet Orally Twic e a day Active MiraLax (colon prep) 17 GM/SCOOP mixed with Gatorade or Crystal Light Orally begin at 5:00 p.m. the day before the procedure for 1 day 11/21/2021 Active Losartan Potassium 100 MG 1 tablet Orall y Once a day Active metFORMIN HCl 500 MG 1 tablet with meals Orally Once a day Active Vitamin D 50 MCG (2000 UT) 1 tablet Oral ly Once a day Active Vitamin C 500 MG 1 tablet Orally Once a day Active Aspirin Active Simvastatin 20 MG 1 tablet in the even ing Orally Once a day Active Acyclovir 400 MG 1 tablet Orally Twic e a day Active IMMUNIZATIONS Vaccine Route Administration Date Status Comme nts Influenza Unknown 11/14/2020 Administered SOCIAL HISTORY Sex Assigned At : Social History Observation Description Sex Assigned At Unknown Alcohol Screen Question Answer Notes Did you have a drink contain ing alcohol in the past year? Yes How often did you have a dri nk containing alcohol in the past year? 2 to 4 times a month (2 points) How many drinks did you have on a typical day when you were drinking in the past year? 1 or 2 drinks (0 point) How often did you have 6 or more drinks on one occasion in the past year? Never (0 point) Points 2 Interpretation Negative PROBLEMS Problem Type ICD Code Onset Dates Problem Status W/U Status Risk SNOMED Code Notes Problem Family history of colon cancer (Z80.0) Active confirmed 181728680 Problem Long-term current use of high risk medication other than anticoagulant (Z79.899) Active confirmed 990879118 Problem Colon cancer screening (Z12.11) Active confirmed 067900530 Problem Encounter for other preprocedural examination (Z01.818) Active confirmed 118661960 Problem Long-term use of aspirin therapy (Z79.82) Active confirmed 496185805 Problem Diverticulosis of colon (K57.30) Active confirmed Diverticulosi s of colon (060901899) PLAN OF TREATMENT Future Test Test Name Order Date COLONOSCOPY 11/22/2015 COLONOSCOPY 11/21/2021 Insurance Providers Payer Name Payer Address Payer Phone Subscriber Number Group Number Insured Name Patient Relationship to Insured Coverage Start Date Coverage End Date [facility] [employer] [address] [place] [id number] CRISTIANO FRANK Self - patient is the insured MEDICAL (GENERAL) HISTORY Medical History History ICD Code colonoscopy 01/29, tubular adenoma, five -year followup for family history Hearing loss hemorrhoids elevated cholesterol hypertension HSV infections diabetes type 2 Diastasis recti Surgical History Surgery Date(Month/Year) Bilateral inguinal herniorrhaphies left rotor cuff surgery
--- OUTSIDE RECORDS SUMMARY | 2024-02-09 12:31 | XMS_ITS ---
Author Organization [facility] Address [address] [place] [id number] Care Team Providers Care Certified Detention Deputy Name Role Phone Cristiano Damico Primary Care Provider Un available Ozzie Azul Jr Unavailable Encounters Encounter Location Date Provider Diagnosis [facility] [address] [place] [phone] 10/10/2022 Ozzie Azul Jr PLAN OF TREATMENT No Information
--- NOTE | 2024-02-09 12:45 | ED_ITS ---
HPI - Extremity Problem General Chief complaint: Extremity Injury, Upper Stated complaint: L shoulder injury Time Seen by Provider: 02/09/24 12:23 Source: patient Mode of arrival: ambulatory Limitations: no limitations History of Present Illness ED Provider: lalito kessler pa-c HPI Narrative: 78 year old male with pmhx significant for HTN, T2DM, BPH presents to the ED today for evaluation of left shoulder pain x10 days. He states that while he was traveling, he went to grab his luggage off of an upper shelf with his left arm when the luggage fell to the ground, yanking the left arm. He reports history of left rotator cuff injury 20 years ago requiring surgery x2 and states he feels as though it tore again. Endorses a burning sensation to the anterolateral aspect of the left shoulder. No radiation. Admits to difficulty and pain with lifting the LUE. Denies chest pain, numbness/tingling/weakness of the LUE. Related Data Home Medications ?Medication ?Instructions ?Recorded ?Confirmed acyclovir 400 mg tablet 400 mg PO TID PRN herpes outbreak 12/16/21 04/16/23 cetirizine 10 mg tablet (Allergy 10 mg PO DAILY PRN 12/16/21 04/16/23 Relief (cetirizine)) cholecalciferol (vitamin D3) 25 25 mcg PO DAILY 12/16/21 04/16/23 mcg (1,000 unit) tablet famotidine 20 mg tablet 20 mg PO BID PRN Acid Reflux 12/16/21 04/16/23 fluocinonide 0.05 % topical 1 appl topical BID-QID PRN 12/16/21 04/16/23 solution hydrochlorothiazide 12.5 mg capsule 12.5 mg PO DAILY 12/16/21 04/16/23 losartan 100 mg tablet 100 mg PO DAILY 12/16/21 04/16/23 metformin 1,000 mg tablet 1,000 mg PO DAILY 12/16/21 04/16/23 simvastatin 80 mg tablet 40 mg PO BEDTIME 12/16/21 04/16/23 tamsulosin 0.4 mg capsule 0.4 mg PO BEDTIME 12/16/21 04/16/23 ibuprofen 400 mg tablet 400 mg PO Q8H PRN 02/03/23 04/16/23 Previous Rx's ?Medication ?Instructions ?Recorded metoprolol succinate 25 mg 25 mg PO DAILY #30 tabs 03/24/23 tablet,extended release 24 hr prednisone 20 mg tablet 40 mg (2 x 20 mg) PO DAILY 5 days 02/09/24 #10 tabs Allergies Allergy/AdvReac Type Severity Reaction Status Date / Time No Known Allergies Allergy Verified 02/09/24 10:12 Review of Systems Review of Systems: Constitutional: No fever, chills, fatigue, night sweats, weight changes ENT/Mouth: No ear pain, hearing loss, nasal congestion, sinus pain, rhinorrhea, sore throat Eyes: No eye pain, swelling, redness, vision changes, discharge Cardio: No chest pain, palpitations, GONZÁLES, orthopnea, peripheral edema Pulm: No SOB, cough, sputum, wheezing, dyspnea, hemoptysis GI: No nausea, vomiting, hematemesis, abdominal pain, diarrhea, constipation, hematochezia, melena : No irregular bleeding, dysuria, frequency, urgency, hesitancy, hematuria, flank pain, urinary flow changes, urinary incontinence or retention MSK: No back pain, neck pain, joint pain, myalgias, +left shoulder pain Skin: No lesions, rashes Neuro: No weakness, numbness, paresthesias, LOC, dizziness, headache Psych: No anxiety/panic, depression, SI/HI, AH/VH All other systems reviewed and are negative. [facility] Past Medical History Attestation statement: The following information was validated with the patient. Source: old records reviewed and nursing notes reviewed Medical History Encounter for testing for latent tuberculosis infection Screening for viral disease BPH (benign prostatic hyperplasia) Dyslipidemia Hypertension Joint pain in fingers of right hand Pain in joints of left hand Low back pain, unspecified Herpes simplex Psoriasis Type 2 diabetes mellitus Surgical History H/O colonoscopy S/P left rotator cuff repair Hx of umbilical hernia repair Family History Family History Father Melanoma Mother Colitis Social History Social History Household Members: Spouse Alcohol intake: current Alcohol intake frequency: holidays/special occasions only Patient Tobacco Use Status: Former Tobacco user service: Yes Current occupational status: retired Physical Exam Vital Signs: Vital Signs: Last Vital Signs Temp 98.2 F 02/09/24 13:06 Pulse 91 02/09/24 13:06 Resp 20 02/09/24 13:06 BP 140/72 H 02/09/24 13:06 Pulse Ox 98 02/09/24 13:06 O2 Del Method Room Air 02/09/24 13:06 BMI result Body Mass Index 27.8 hypertensive, vitals otherwise wnl General: Well appearing, in no acute distress. Skin: Warm, dry, intact. No rashes or lesions. Head: Normocephalic, atraumatic.? Cardiac: Chest wall symmetric. RRR Lungs: Normal respiratory effort without accessory muscle use. CTA bilaterally Back: No midline spinous or paraspinal tenderness. No step off deformity. Ext: + no overlying skin changes/ swelling to left shoulder, no deformity, pain w/ passive and active ROM to left shoulder, limited ROM to 45 degrees on abduction. 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 sensation intact. 2+ radial/ ulnar pulse intact. Neuro: AOx3. Normal speech. Ambulating with steady gait. Psych: Appropriate mood and affect. Responds appropriately to questions. Course Course Course Narrative: 1305 --xr left shoulder shows arthritic changes within the joint itself, narrowing of the subacromial space and periosteal reaction along inferior lateral aspect of scapula. no discrete fracture. concern for chronic vs acute rotator cuff injury. patient place in sling. advised to follow up w/ ortho this week for further imaging. advised to take tylenol/ motrin at home for pain. prednisone sent to pharmacy - educated on hyperglycemic effects and when he should discontinue use. Patient has remained stable throughout ED visit today. Discussed worrisome signs and symptoms and when to return to the ED. All questions answered at this time. Patient is agreeable with disposition and stable for discharge. Medical Decision Making Medical Decision Making MDM Narrative: 78 year old male with pmhx significant for HTN, T2DM, BPH presents to the ED today for evaluation of left shoulder pain x10 days. Patient is hypertensive, vitals otherwise wnl. He is nontoxic appearing and in NAD. On exam, no overlying skin changes/ swelling to left shoulder, no deformity, pain w/ passive and active ROM to left shoulder, limited ROM to 45 degrees on abduction. 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 sensation intact. 2+ radial/ ulnar pulse intact. Differential diagnosis includes contusion, tendonitis, bursitis, fracture, dislocation, rotator cuff injury. unlikely nv compromise, threat to limb, compartment syndrome. Plan for imaging, re-evaluation. Differential Diagnosis Differential Diagnoses: The differential diagnosis associated with the presentation includes as above. Admission/Observation Not indicated. Independent Interpretation I performed an independent interpretation of an: Plain X-Ray Interpretation: XR left shoulder without acute fracture Radiology Impression Discussion of test interpretation with radiology: I have reviewed the radiologist's reading. Radiologist Impression: EXAMINATION: XR SHOULDER, LEFT CLINICAL INFORMATION: Pain after lifting. COMPARISON: None available. TECHNIQUE: AP external rotation, Grashey, scapular Y, and axillary views of the left shoulder. FINDINGS: Degenerative changes in the acromioclavicular joint with joint space narrowing and hypertrophic change. Degenerative changes in the glenohumeral joint with inferior hypertrophic change. Narrowing of the subacromial space. Small ossifications lateral to the acromion. Periosteal reaction along the inferior lateral aspect of the scapula. XR/XR shoulder LT min 2V IMPRESSION: 1. Degenerative changes in the acromioclavicular and glenohumeral joints. 2. Narrowing of the subacromial space. 3. Periosteal reaction along the inferior lateral aspect of the scapula. 4. Diffuse demineralization with focal demineralization in the humeral head. Electronically signed by: Melinda Guadalupe MD 02/09/2024 12:15 PM [facility] External Record Review External record reviewed: Inpatient record Prescription Management I considered prescription management with: Pain Medication Chronic Conditions Patient?s care impacted by: Diabetes and Hypertension Social Determinants Patient?s care significantly limited by Social Determinants of Health including: Other Social Determinant of Health Procedures Orthopedic Splinting/Casting Injury #1: Side: left Upper Extremity Injury Location: shoulder Upper Extremity Immobilizer: sling/shoulder immobilizer Critical Care Time Critical Care Time Critical Care Time: No Discharge Plan Discharge Clinical Impression: Injury of left rotator cuff Patient Disposition: Home, Self-Care Instructions: Rotator Cuff Injury (ED), Rotator Cuff Injury Exercises (DC) Additional Instructions: You were evaluated in the ED today for your left shoulder pain. The x-ray of your left shoulder does not demonstrate fracture however your phy sical exam is consistent with injury to your left rotator cuff. You were placed in a sling today. Please continue taking Tylenol and ibuprofen at home for pain. I have also send a short course of steroids to your pharmacy. Take these as prescribed for inflammation. As discussed, this can elevate your blood sugar. If you notice your sugars rising or feel nauseous, vomiting or dizzy, please discontinue prednisone and come back to the emergency department. Follow-up with the orthopedic doctor. You have been provided with a referral. Call them today to schedule an appointment. They will not call you. Return with new or worsening symptoms. In the case of an emergency call 911. Prescriptions: New prednisone 20 mg tablet 40 mg PO DAILY 5 Days Qty: 10 0RF No Action acyclovir 400 mg tablet 400 mg PO TID PRN (Reason: herpes outbreak) cetirizine [Allergy Relief (cetirizine)] 10 mg tablet 10 mg PO DAILY PRN cholecalciferol (vitamin D3) 25 mcg (1,000 unit) tablet 25 mcg PO DAILY fluocinonide 0.05 % solution 1 appl topical BID-QID PRN metformin 1,000 mg tablet 1,000 mg PO DAILY simvastatin 80 mg tablet 40 mg PO BEDTIME famotidine 20 mg tablet 20 mg PO BID PRN (Reason: Acid Reflux) hydrochlorothiazide 12.5 mg capsule 12.5 mg PO DAILY losartan 100 mg tablet 100 mg PO DAILY tamsulosin 0.4 mg capsule 0.4 mg PO BEDTIME ibuprofen 400 mg tablet 400 mg PO Q8H PRN metoprolol succinate 25 mg tablet extended release 24 hr 25 mg PO DAILY Qty: 30 2RF Referrals: [facility] [place] [facility] [Provider Group] - 3 days (rotator cuff injury) Cristiano Romero PA [Primary Care Provider] - 3 days (rotator cuff injury) Interventions: ED Discharge Assessment Last Done: 02/09/24 13:06 Discharge Date/Time: 02/09/24 13:06 Print Language: Nigerian
[2024-02-09 13:06] VITALS: BP 140/72; PULSE 91; RESP 20; TEMP 36.8; O2SAT 98
== END 2024-02-09 13:06 | disposition home or self-care (01) ==
PROVIDERS: Emergency Provider Emergency Medicine; PCP Physician Assistant
DX: S46.002A Unspecified injury of muscle(s) and tendon(s) of the rotator cuff of left shoulder, initial encounter (principal); M25.512 Pain in left shoulder; X50.0XXA Overexertion from strenuous movement or load, initial encounter; X50.9XXA Other and unspecified overexertion or strenuous movements or postures, initial encounter; Y92.520 Airport as the place of occurrence of the external cause; Y99.8 Other external cause status; Z79.899 Other long term (current) drug therapy
CPT/HCPCS: 29105; 73030; 99282; 99283; 99284

== ENCOUNTER 2024-03-02 08:31 | Outpatient (AMB) | payer OTHER, SELFPAY ==
--- OUTSIDE RECORDS SUMMARY | 2024-03-02 08:45 | XMS_ITS | Encounter Summary ---
Author Name [facility] [facility] [place] Address [address] [place] [address] Care Team Providers Care Business Manager [employer] Name Role Phone DALLIN LUCERO Primary Care Provider Unavail able Insurance Providers: All historical and current Section Date Range: From patient's date of to the date document was created. This section includes the names of all active insurance providers for the patient. Insurance Provider Type of Coverage Plan Name Start of Policy Coverage End of Policy Coverage Group Number Member ID Insurance Provider's Telephone Number Policy [employer]'s Name Patient's Relationship to Policy [employer] MEDICARE (WNR) MEDICARE (M) PART A Mar 16, 2010 PART A [id number] LOWELL FRANK JR PATIENT MEDICARE (WNR) MEDICARE (M) PART A Mar 16, 2010 PART A [id number] [phone] LOWELL FRANK JR PATIENT MEDICARE (WNR) MEDICARE (M) PART A Mar 16, 2010 PART A [id number] LOWELL FRANK JR PATIENT Selected Encounter This section includes the information on record at [place] for the Encounter. Date/Time Encounter Type Encounter Description Reason Pro vider Source Mar 24, 2023 09:30 AM Outpatient Encounter TELEPHONE/MEDICINE IHE Encounter Template Text not used by [place] Plan of Treatment: Future Appointments (+ 6 months) and Future Tests (+/- 45 days) The Plan of Treatment section includes future care activities for the [facility] [place] [facility] This section includes future appointments and future orders which are active, pending or scheduled. Future Appointments This section includes appointments that were scheduled to occur 6 months from the date of the Encounter, up to a maximum of 20 appointments. The data comes from all [place] treatment facilities. Appointment Date/Time Appointment Type Appointme nt Facility Name Apr 02, 2023 09:00 AM [place]UL[place]ICINE [place] [facility] [place] [facility] Jun 08, 2023 08:30 AM AMBULATORY - MEDICINE [facility] [place] [facility] Social History: Smoking Status (Most current) and Tobacco Use (All prior to encounter date) This section includes the most current, and the historical, smoking and tobacco- related health factors from the [facility] facility where the Encounter took place. Current Smoking Status This section includes the most current smoking, or tobacco-related health factor, from the [place] facility where the Encounter took place. Date/Time Current Smoking Status Comment Facil ity Jan 29, 2023 09:44 AM VA-TOBACCO FORMER USER [place] [facility] [place] [facility] Tobacco Use History This section includes a history of the smoking, or tobacco-related health factors, that were collected on or before the date of the Encounter. The data comes from the [place] facility where the Encounter took place. Date/Time Smoking Status/Tobacco Use Comment F acility Jan 29, 2023 09:44 AM VA-TOBACCO QUIT 15 YRS OR MORE [place] [facility] [place] [facility] Dec 13, 2021 11:25 AM VA-TOBACCO FORMER USER [facility] [place] [facility] Dec 13, 2021 11:25 AM VA-TOBACCO QUIT 15 YRS OR MORE [facility] [place] [facility] Jan 02, 2021 02:07 PM VA-TOBACCO FORMER USER [facility] [place] [facility] Jan 02, 2021 02:07 PM VA-TOBACCO QUIT 15 YRS OR MORE [facility] [place] [facility] Feb 01, 2020 08:30 AM VA-TOBACCO FORMER USER [facility] [place] [facility] Feb 01, 2020 08:30 AM VA-TOBACCO QUIT 15 YRS OR MORE [facility] Nov 16, 2018 02:39 PM [facility]AC[facility] Nov 16, 2018 02:39 PM VA-TOBACCO QUIT 15 YRS OR MORE [facility] Nov 06, 2017 02:22 PM VA-TOBACCO FORMER USER [facility] Nov 06, 2017 02:22 PM VA-TOBACCO QUIT 15 YRS OR MORE [facility] Jan 07, 2017 09:30 AM LIFETIME NON-TOBACCO USER [facility] Jan 08, 2016 09:06 AM QUIT TOBACCO USE > 7 YEARS AGO [facility] Oct 10, 2014 11:16 AM QUIT TOBACCO USE > 7 YEARS AGO . [facility] Advance Directives: All historical and current Section Date Range: From patient's date of to the date document was created. This section includes ALL of a patient's completed or amended [place] Advance and Rescinded Directives. The entries below indicate that a directive exists for the patient, but an actual copy is not included with this document. The data comes from all [place] facilities. Date Advance Directives Provider Source Dec 02, 2019 ADVANCE DIRECTIVE LI ZHAO [facility] Encounter Notes: All associated encounter notes This section contains the clinical notes associated to the Encounter. Date/Time Encounter Note(s) Provider Source Mar 13, 2023 09:37 AM TELEPHONE ENCOUNTE R NOTE: LOCAL TITLE: TELEPHONE NOTE/SPECIALTY CLINIC STANDARD TITLE: TELEPHONE ENCOUNTER NOTE DATE OF NOTE: MAR 13, 2023@09:37 ENTRY DATE: MAR 13, 2023@09:37:09 AUTHOR: ROWENA NUGENT EXP COSIGNER: URGENCY: STATUS: COMPLETED Telephone call to [place] as a reminder of upcoming Dermatology visit on 03/24/2023. verbalized understanding. /mary kate/ Rowena Nugent LPN Licensed Practical Nurse Signed: 03/13/2023 09:37 ROWENA NUGENT [facility]
--- OUTSIDE RECORDS SUMMARY | 2024-03-02 08:45 | XMS_ITS | Continuity of Care Document ---
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 It does not include entries that were removed or entered in error. Problem Status Onset Date Problem Type Date of Resolution Comments Source Diastasis recti Active Condition [facility] Exposure to potentially hazardous substance (SCT [id number]) Active Condition Jun 23 4 Entered By: JOHNATHON SOTO Comment: Entered automatically through TEE Problem List documentation program [facility] Family history of malignant melanoma Active Condition Nov 06, 2017 Entered By: RADHA LUCERO AM Comment: Father. [facility] Hearing Loss Active Condition [facility] Herpes simplex Active Condition [facility]soriasis Active Condition [facility] Type 2 diabetes mellitus without complication Active Condition [facility] Diagnosis: ICD-10-CM Z46.1 Encounter for fitting and adjustment of hearing aid Active Diagnosis [facility] Diagnosis: ICD-10-CM Z46.0 Encounter for fit/adjst of spectacles and contact lenses Active Diagnosis [facility] Diagnosis: ICD-10-CM E11.9 Type 2 diabetes mellitus without complications Active Diagnosis [facility] Diagnosis: ICD-10-CM H90.3 Sensorineural hearing loss, bilateral Active Diagnosis [facility] Diagnosis: ICD-10-CM L40.9 Psoriasis, unspecified Active Diagnosis [facility] Diagnosis: ICD-10-CM U07.1 COVID-19 Active Diagnosis [facility] Diagnosis: ICD-10-CM M62.08 Separation of muscle (nontraumatic), other site Active Diagnosis [facility] Diagnosis: ICD-10-CM M25.552 Pain in left hip Active Diagnosis [facility] Diagnosis: ICD-10-CM L40.8 Other psoriasis Active Diagnosis [facility] Diagnosis: ICD-10-CM Z13.89 Encounter for screening for other disorder Active Diagnosis [facility] Diagnosis: ICD-10-CM M13.852 Other specified arthritis, left hip Active Diagnosis [facility] Diagnosis: ICD-10-CM Z13.6 Encounter for screening for cardiovascular disorders Active Diagnosis [facility] Medications Combined list of outpatient medications from Department of Defense and Veterans Affairs facilities.Medications provided include 1) outpatient medications from the last 15 months, and 2) patient-reported medications. Medication Details Route Status Patient Instructions Prescription Expires Prescription Number Last Dispense Date Ordering Provider Order Date Order Qty Source ACYCLOVIR 400MG TAB TAKE ONE TABLET BY MOUTH THREE TIMES DAILY NEEDED ORAL ACTIVE 01/01/2025 [id number] DALLIN LUCERO 2023 [facility] ACYCLOVIR 400MG TAB TAKE ONE TABLET BY MOUTH THREE TIMES DAILY NEEDED [facility] 02/07/2024 [id number] DALLIN LUCERO 2022 270 [facility] CETIRIZINE HCL 10MG TAB TAKE ONE TABLET BY MOUTH ONCE DAILY NEEDED FOR ALLERGIE S ORAL ACTIVE 10/01/2024 [id number] 4 DALLIN LUCERO 2023 90 [facility] CETIRIZINE HCL 10MG TAB TAKE ONE TABLET BY MOUTH ONCE DAILY NEEDED FOR ALLERGIE S [facility] 10/11/2023 [id number] 4 DALLIN LUCERO 2022 90 [facility] CHOLECALCIF LORIE 25MCG (1,000UNIT) TAB TAKE ONE TABLET BY MOUTH ONCE DAILY FOR VITAMIN SUPPLEME NTATION ORAL ACTIVE 10/01/2024 [id number] 4 DALLIN LUCERO 2023 90 [facility] CHOLECALCIF LORIE 25MCG (1,000UNIT) TAB TAKE ONE TABLET BY MOUTH ONCE DAILY FOR VITAMIN SUPPLEME NTATION ORAL DISCONT INUED 08/20/2024 [id number] 4 DALLIN LUCERO 2023 90 [facility] CHOLECALCIF LORIE 25MCG (1,000UNIT) TAB TAKE ONE TABLET BY MOUTH ONCE DAILY FOR VITAMIN SUPPLEME NTATION ORAL DISCONT INUED 07/08/2023 [id number] 4 DALLIN LUCERO 2022 90 [facility] FAMOTIDINE 20MG TAB TAKE ONE TABLET BY MOUTH TWICE DAILY NEEDED FOR STOMACH ACID ORAL DISCONT INUED BY PROVIDE R 07/08/2023 [id number] 4 DALLIN LUCERO 2022 180 [facility] FLUOCINONID E 0.05% SOLN,TOP APPLY SMALL AMOUNT TOPICALL Y ONCE DAILY NEEDED TOPICA L ACTIVE 06/24/2024 [id number] DALLIN LUCERO 2023 60 [facility] FLUTICASONE PROPIONATE 50MCG/SPRAY SOLN,NASAL, 16GM INSTILL 1 SPRAY INTO EACH NOSTRIL TWICE DAILY NEEDED NASAL ACTIVE 10/01/2024 [id number] 4 DALLIN LUCERO 2023 3 [facility] FLUTICASONE PROPIONATE 50MCG/SPRAY SOLN,NASAL, 16GM INSTILL 1 SPRAY INTO EACH NOSTRIL TWICE DAILY NEEDED NASAL DISCONT INUED 10/11/2023 [id number] DALLIN LUCERO 2022 3 [facility] GOV-NIRMATR JOEY 150MG X 2/RITONAVIR 100MG X 1 TAB,PACK,3 TAKE 2 TABLETS NIRMATRE LVIR AND 1 TABLET RITONAVI R BY MOUTH TWICE DAILY FOR COVID-19 ORAL 11/24/2023 [id number] AMISHA,RHO NDA R 2023 30 [facility] GUAIFENESIN 600MG TAB,SA TAKE TWO TABLETS BY MOUTH TWICE DAILY FOR COUGH FOLLOW DOSE WITH FULL GLASS OF WATER ORAL 11/24/2023 [id number] AMISHA,RHO NDA R 2023 40 [facility] HYDROCHLORO THIAZIDE 25MG TAB TAKE ONE TABLET BY MOUTH EVERY MORNING TO PREVENT FLUID/CO NTROL BLOOD PRESSURE ORAL ACTIVE 01/01/2025 [id number] 4 DALLIN LUCERO 2023 90 [facility] HYDROCHLORO THIAZIDE 25MG TAB TAKE ONE TABLET BY MOUTH EVERY MORNING TO PREVENT FLUID/CO NTROL BLOOD PRESSURE ORAL DISCONT INUED 02/07/2024 [id number] 4 DALLIN LUCERO 2022 90 [facility] HYDROCHLORO THIAZIDE 25MG TAB TAKE ONE TABLET BY MOUTH EVERY MORNING TO PREVENT FLUID/CO NTROL BLOOD PRESSURE ORAL DISCONT INUED 01/21/2023 [id number] DALLIN LUCERO 2021 90 [facility] IBUPROFEN 400MG TAB TAKE ONE TABLET BY MOUTH TWICE DAILY NEEDED TAKE WITH FOOD; FOR PAIN/INF LAMMATIO N/SWELLI NG ORAL ACTIVE 10/01/2024 [id number] 4 DALLIN LUCERO 2023 60 [facility] IBUPROFEN 400MG TAB TAKE ONE TABLET BY MOUTH TWICE DAILY NEEDED TAKE WITH FOOD; FOR PAIN/INF LAMMATIO N/SWELLI NG ORAL DISCONT INUED 02/07/2024 [id number] DALLIN LUCERO 2022 60 [facility] IBUPROFEN 400MG TAB TAKE ONE TABLET BY MOUTH TWICE DAILY NEEDED TAKE WITH FOOD; FOR PAIN/INF LAMMATIO N/SWELLI NG ORAL DISCONT INUED 10/11/2023 [id number] DALLIN LUCERO 2022 60 [facility] IPRATROPIUM BR 0.03% SOLN,SPRAY, NASAL INSTILL 2 SPRAYS INTO EACH NOSTRIL TWICE DAILY FOR RUNNY NOSE FOR NASAL IRRITATI ON/CONGE STION NASAL 11/24/2023 [id number] KELSIE LION NDA R 2023 30 [facility] KETOCONAZOL E 2% SHAMPOO SHAMPOO SMALL AMOUNT TOPICALL Y EVERY 3 DAYS NEEDED TOPICA L 11/27/2023 [id number] DALLIN LUCERO 2022 120 [facility] [place] POTASSIUM 100MG TAB TAKE ONE TABLET BY MOUTH ONCE DAILY FOR BLOOD PRESSURE /HEART ORAL ACTIVE 07/27/2024 [id number] 4 DALLIN LUCERO 2023 90 [facility] [place] POTASSIUM 100MG TAB TAKE ONE TABLET BY MOUTH ONCE DAILY FOR BLOOD PRESSURE /HEART ORAL DISCONT INUED 07/08/2023 [id number] 4 DALLIN LUCERO 2022 90 [facility] METFORMIN HCL 1000MG TAB TAKE ONE TABLET BY MOUTH ONCE DAILY FOR DIABETES ORAL ACTIVE 10/01/2024 [id number] 4 DALLIN LUCERO 2023 90 [facility] METFORMIN HCL 1000MG TAB TAKE ONE TABLET BY MOUTH ONCE DAILY FOR DIABETES ORAL DISCONT INUED 02/07/2024 [id number] 4 DALLIN LUCERO 2023 90 [facility] METFORMIN HCL 1000MG TAB TAKE ONE TABLET BY MOUTH ONCE DAILY FOR DIABETES ORAL DISCONT INUED 07/08/2023 [id number] 3 DALLIN LUCERO 2022 90 [facility] METOPROLOL SUCCINATE 25MG TAB,SA TAKE ONE TABLET BY MOUTH ONCE DAILY FOR BLOOD PRESSURE /HEART ORAL DISCONT INUED BY ALEXA Perales 03/24/2024 [id number] OSIRIS MONTGOMERY 2023 30 [facility] OMEPRAZOLE 20MG CAP,EC TAKE ONE CAPSULE BY MOUTH EVERY MORNING 30 MINUTES BEFORE BREAKFAS T FOR GASTROES OPHAGEAL REFLUX DISEASE ORAL SUSPEND ED 06/08/2024 [id number] RA HARJIT MARIE 2023 90 [facility] PREDNISONE 20MG TAB TAKE TWO TABLETS BY MOUTH ONCE DAILY FOR 5 DAYS ORAL ACTIVE 03/10/2024 [id number] JAVED ALEJO 2023 10 [facility] SIMVASTATIN 80MG TAB TAKE ONE-HALF TABLET BY MOUTH AT BEDTIME FOR CHOLESTE ROL ORAL ACTIVE 10/01/2024 [id number] 4 DALLIN LUCERO 2023 45 [facility] SIMVASTATIN 80MG TAB TAKE ONE-HALF TABLET BY MOUTH AT BEDTIME FOR CHOLESTE ROL ORAL DISCONT INUED 10/11/2023 [id number] 4 DALLIN LUCERO 2022 45 [facility] TACROLIMUS 0.03% OINT,TOP APPLY THIN LAYER TOPICALL Y TWICE DAILY NEEDED TOPICA Fany 11/27/2023 [id number] DALLIN LUCERO 2022 30 [facility] TAMSULOSIN HCL 0.4MG CAP TAKE ONE CAPSULE BY MOUTH AT BEDTIME ORAL SUSPEND ED 01/01/2025 [id number] 5 DALLIN LUCERO 2024 90 [facility] TAMSULOSIN HCL 0.4MG CAP TAKE ONE CAPSULE BY MOUTH AT BEDTIME ORAL DISCONT INUED 02/07/2024 [id number] 4 DALLIN LUCERO 2023 90 [facility] TAMSULOSIN HCL 0.4MG CAP TAKE ONE CAPSULE BY MOUTH AT BEDTIME ORAL DISCONT INUED 03/29/2023 [id number] 3 DALLIN LUCERO 2022 90 [facility] Allergies, Adverse Reactions, Alerts Combined list of allergies from Department of Defense and Veterans Affairs facilities. It does not include entries that were removed or entered in error. Substance Category Reaction Severity Reaction type Status Date Reported Comments Source VALTREX Propensity to adverse reactions to drug (finding) active 8 [facility] Immunizations Combined list of available immunizations from the Department of Defense and Veterans Affairs facilities. Immunization Series Date Given Administered By Site Reaction Lot Number CVX Code Drug Rail Director Status Comments Source COVID-19 (MODERNA), MRNA, LNP-S, PF, 50 MCG/0.5 ML (AGES 12+ YEARS) 1 2023 LUIS ENRIQUE BENITEZ RIGHT DELTO ID [id number] 312 complet ed [facility] INFLUENZA, HIGH-DOSE, TRIVALENT, PF 2023 LUIS ENRIQUE BENITEZ RIGHT [place] ID [id number] A 135 complet ed [facility] COVID-19 (MODERNA), MRNA, LNP-S, PF, 50 MCG/0.5 ML (AGES 12+ YEARS) 2022 MEHREEN SWARTZ RIGHT DELTO ID [id number] 312 [facility] INFLUENZA, HIGH-DOSE, QUADRIVALENT 2022 MEHREEN SWARTZ RIGHT [place] ID [id number] A 197 complet ed [facility] RSV, BIVALENT, PROTEIN SUBUNIT RSVPREF, DILUENT RECONSTITUTED , 0.5 ML, PF 2022 MEHREEN SWARTZ LEFT DELTO ID [id number] 305 complet ed [facility] COVID-19 (MODERNA), MRNA, LNP-S, BIVALENT BOOSTER, PF, 50 MCG/0.5 ML OR 25MCG/0.25 ML DOSE 1 2021 229 complet ed MOD; [id number]; 3 [facility] INFLUENZA VACCINE, QUADRIVALENT, ADJUVANTED 2021 205 complet ed [facility] COVID-19 (MODERNA), MRNA, LNP-S, PF, 100 MCG/0.5ML DOSE OR 50 MCG/0.25ML DOSE 3 2021 207 complet ed MOD; [id number]; 2 [facility] COVID-19 (MODERNA), MRNA, LNP-S, PF, 100 MCG/0.5 ML DOSE 3 2020 207 complet ed MOD; [id number]; 1 [facility] INFLUENZA VACCINE, QUADRIVALENT, ADJUVANTED 2020 205 complet ed [facility] COVID-19 (MODERNA), MRNA, LNP-S, PF, 100 MCG/0.5 ML DOSE 2 2020 207 complet ed MOD; [id number]; 1 [facility] COVID-19 (MODERNA), MRNA, LNP-S, PF, 100 MCG/0.5 ML DOSE 1 2020 207 complet ed MOD; [id number]; 1 [facility] ZOSTER RECOMBINANT 2 2019 187 complet ed [facility] INFLUENZA, INJECTABLE, QUADRIVALENT, PRESERVATIVE FREE 2019 150 complet ed [facility] ZOSTER RECOMBINANT 1 2019 187 complet ed [facility] INFLUENZA, INJECTABLE, QUADRIVALENT, PRESERVATIVE FREE 2018 150 complet ed Site: Left Deltoid [facility] INFLUENZA, SEASONAL, INJECTABLE 2017 141 complet ed Site: Right Deltoid [facility] TDAP 2016 115 complet ed Site: Left Deltoid [facility] FLU,3 YRS (HISTORICAL) [address] Doyle [facility] FLU,3 YRS (HISTORICAL) 2015 88 complet ed [facility] PNEUMOCOCCAL CONJUGATE PCV [address] Doyle [facility] FLU,3 YRS (HISTORICAL) 2015 88 complet ed [facility] PNEUMOCOCCAL POLYSACCHARID E PPV23 2014 33 complet ed [facility] TD(ADULT) UNSPECIFIED FORMULATION [address] Doyle [facility] FLU,3 YRS (HISTORICAL) 2014 88 complet ed Fluzone high-dose [facility] FLU,3 YRS (HISTORICAL) 2014 88 complet ed [facility] TD(ADULT) UNSPECIFIED FORMULATION 2014 139 complet ed [facility] Results Combined list of recent chemistry, hematology and other laboratory results from Department of Defense and Veterans Affairs, ranging from 15 months to all on record, depending upon the facility. Order Name Results Value Reference Range Date Interpretation Specimen Comments Source HEMOGLOBI N A1C PANEL HEMOGLOBIN A1C/HEMOGLO BIN.TOTAL IN BLOOD BY HPLC 6.3 4.0 - 5.6 12/14 H Specimen Type: BLOOD Comment: Values obtained from A1C measurement s can vary. For atypical A1C assays, a reported value of 7.0 could actually be between 6.72 and 7.28 if measured by a reference method. A reported value of 9.0 could actually be between 8.73 and 9.27. Ref: http://www. ngsp.org/[place] Pdata.asp Ordering Provider: Brennen LUCERO Report Released Date/Time: Oct 01, 2023 10:36 AM Reporting Lab: [facility] [address] [address] Performing Lab: [facility] [address] [address] [facility] LIVER FUNCTION PROTEIN [MASS/VOLUM E] IN SERUM OR PLASMA 6.7 g/dL 6.0 - 8.3 12/14 Specimen Type: SERUM No comment entered. Ordering Provider: Brennen LUCERO Report Released Date/Time: Oct 01, 2023 10:36 AM Reporting Lab: [facility] [address] [address] Performing Lab: [facility] [place] [facility] [address] [address] [facility] LIVER FUNCTION ALBUMIN [MASS/VOLUM E] IN SERUM OR PLASMA 4.0 g/dL 3.5 - 5.0 12/14 Specimen Type: SERUM No comment entered. Ordering Provider: Brennen LUCERO Report Released Date/Time: Oct 01, 2023 10:36 AM Reporting Lab: [facility] [address] [address] Performing Lab: [facility] [place] [facility] [address] [address] [facility] LIVER FUNCTION ALKALINE PHOSPHATASE [ENZYMATIC ACTIVITY/VO LUME] IN SERUM OR PLASMA 55 U/L 40 - 150 12/14 Specimen Type: SERUM No comment entered. Ordering Provider: Brennen LUCERO Report Released Date/Time: Oct 01, 2023 10:36 AM Reporting Lab: [facility] [place] [address] [address] Performing Lab: [facility] [place] [facility] [address] [address] [facility] L[facility] FUNCTION ASPARTATE AMINOTRANSF ERASE [ENZYMATIC ACTIVITY/VO LUME] IN SERUM OR PLASMA 21 U/L 5 - 34 12/14 Specimen Type: SERUM No comment entered. Ordering Provider: Brennen LUCERO Report Released Date/Time: Oct 01, 2023 10:36 AM Reporting Lab: [facility] [place] [address] [address] Performing Lab: [facility] [address] [address] [facility] ALANINE AMINOTRANSF ERASE [ENZYMATIC ACTIVITY/VO LUME] IN SERUM OR PLASMA 25 U/L 12/14 Specimen Type: SERUM No comment entered. Ordering Provider: Brennen LUCERO Report Released Date/Time: Oct 01, 2023 10:36 AM Reporting Lab: [facility] [place] [address] [address] Performing Lab: [facility] [place] [address] [address] [facility] LIVER FUNCTION BILIRUBIN.T OTAL [MASS/VOLUM E] IN SERUM OR PLASMA 0.8 mg/dL 0.2 - 1.2 12/14 Specimen Type: SERUM No comment entered. Ordering Provider: Brennen LUCERO Report Released Date/Time: Oct 01, 2023 10:36 AM Reporting Lab: [facility] [place] [address] [address] Performing Lab: [facility] [place] [address] [address] [facility] MICROALBU MIN CREATININ E RATIO PANEL MICROALBUMI N/CREATININ E [MASS RATIO] IN URINE 9.0 mg/g 0 - 29.9 12/14 Specimen Type: URINE No comment entered. Ordering Provider: Brennen LUCERO Report Released Date/Time: Oct 01, 2023 10:36 AM Reporting Lab: [facility] [place] [address] [address] Performing Lab: [facility] [place] [facility] [address] [address] [facility] MICROALBU MIN CREATININ E RATIO PANEL MICROALBUMI N [MASS/VOLUM E] IN URINE 1.2 mg/dL 12/14 Specimen Type: URINE No comment entered. Ordering Provider: Brennen LUCERO Report Released Date/Time: Oct 01, 2023 10:36 AM Reporting Lab: [facility] [place] [address] [address] Performing Lab: [facility] [place] [facility] [address] [address] [facility] MICROALBU MIN CREATININ E RATIO PANEL CREATININE [MASS/VOLUM E] IN URINE 133.78 mg/dL 12/14 Specimen Type: URINE No comment entered. Ordering Provider: Brennen LUCERO Report Released Date/Time: Oct 01, 2023 10:36 AM Reporting Lab: [facility] [place] [address] [address] Performing Lab: [facility] [place] [facility] [address] [address] [facility] LIPID PANEL FASTING CHOLESTEROL [MASS/VOLUM E] IN SERUM OR PLASMA 178 mg/dL 12/14 Specimen Type: SERUM No comment entered. Ordering Provider: Brennen LUCERO Report Released Date/Time: Oct 01, 2023 10:36 AM Reporting Lab: [facility] [place] [facility] [address] [address] Performing Lab: [facility] [place] [facility] [address] [address] [facility] LIPID PANEL FASTING TRIGLYCERID E [MASS/VOLUM E] IN SERUM OR PLASMA 148 mg/dL 0 - 150 12/14 Specimen Type: SERUM No comment entered. Ordering Provider: Brennen LUCERO Report Released Date/Time: Oct 01, 2023 10:36 AM Reporting Lab: [facility] [place] [facility] [address] [address] Performing Lab: [facility] [place] [facility] [address] [address] [facility] LIPID PANEL FASTING CHOLESTEROL IN LDL [MASS/VOLUM E] IN SERUM OR PLASMA BY CALCULATION 92 mg/dL 0 - 129 12/14 Specimen Type: SERUM No comment entered. Ordering Provider: Brennen LUCERO Report Released Date/Time: Oct 01, 2023 10:36 AM Reporting Lab: [facility] [place] [facility] [address] [address] Performing Lab: [facility] [place] [facility] [address] [address] [facility] LIPID PANEL FASTING CHOLESTEROL .TOTAL/CHOL ESTEROL IN HDL [MASS RATIO] IN SERUM OR PLASMA 3.2 12/14 Specimen Type: SERUM No comment entered. Ordering Provider: Brennen LUCERO Report Released Date/Time: Oct 01, 2023 10:36 AM Reporting Lab: [facility] [place] [facility] [address] [address] Performing Lab: [facility] [place] [facility] [address] [address] [facility] LIPID PANEL FASTING CHOLESTEROL IN HDL [MASS/VOLUM E] IN SERUM OR PLASMA 56 mg/dL 40 - 60 12/14 Specimen Type: SERUM No comment entered. Ordering Provider: Brennen LUCERO Report Released Date/Time: Oct 01, 2023 10:36 AM Reporting Lab: [facility] [place] [facility] [address] [address] Performing Lab: [facility] [place] [facility] [address] [address] [facility] BASIC METABOLIC PANEL (fasting) UREA NITROGEN [MASS/VOLUM E] IN SERUM OR PLASMA 16 mg/dL 7 - 25 12/14 Specimen Type: SERUM No comment entered. Ordering Provider: Brennen LUCERO Report Released Date/Time: Oct 01, 2023 10:36 AM Reporting Lab: [facility] [place] [facility] [address] [address] Performing Lab: [facility] [place] [facility] [address] [address] [facility] BASIC METABOLIC PANEL (fasting) GLUCOSE [MASS/VOLUM E] IN SERUM OR PLASMA 127 mg/dL 65 - 100 12/14 H Specimen Type: SERUM No comment entered. Ordering Provider: Brennen LUCERO Report Released Date/Time: Oct 01, 2023 10:36 AM Reporting Lab: [facility] [place] [facility] [address] [address] Performing Lab: [facility] [place] [facility] [address] [address] [facility] BASIC METABOLIC PANEL (fasting) SODIUM [MOLES/VOLU ME] IN SERUM OR PLASMA 137 mmol/L 135 - 145 12/14 Specimen Type: SERUM No comment entered. Ordering Provider: Brennen LUCERO Report Released Date/Time: Oct 01, 2023 10:36 AM Reporting Lab: [facility] [place] [facility] [address] [address] Performing Lab: [facility] [place] [facility] [address] [address] [facility] [place] [facility] BASIC METABOLIC PANEL (fasting) POTASSIUM [MOLES/VOLU ME] IN SERUM OR PLASMA 4.2 mmol/L 3.5 - 5.0 12/14 Specimen Type: SERUM No comment entered. Ordering Provider: Brennen LUCERO Report Released Date/Time: Oct 01, 2023 10:36 AM Reporting Lab: [facility] [place] [facility] [address] [address] Performing Lab: [facility] [place] [facility] [address] [address] [facility] [place] [facility] BASIC METABOLIC PANEL (fasting) CHLORIDE [MOLES/VOLU ME] IN SERUM OR PLASMA 100 mmol/L 100 - 110 12/14 Specimen Type: SERUM No comment entered. Ordering Provider: Brennen LUCERO Report Released Date/Time: Oct 01, 2023 10:36 AM Reporting Lab: [facility] [place] [address] [address] Performing Lab: [facility] [place] [address] [address] [facility] BASIC METABOLIC PANEL (fasting) CARBON DIOXIDE, TOTAL [MOLES/VOLU ME] IN SERUM OR PLASMA 26 meq/L 20 - 30 12/14 Specimen Type: SERUM No comment entered. Ordering Provider: Brennen LUCERO Report Released Date/Time: Oct 01, 2023 10:36 AM Reporting Lab: [facility] [place] [address] Performing Lab: [facility] [place] [facility] [address] [address] [facility] BASIC METABOLIC PANEL (fasting) CREATININE [MASS/VOLUM E] IN SERUM OR PLASMA 1.00 mg/dL 0.50 - 1.40 12/14 Specimen Type: SERUM No comment entered. Ordering Provider: Brennen LUCERO Report Released Date/Time: Oct 01, 2023 10:36 AM Reporting Lab: [facility] [place] [address] [address] Performing Lab: [facility] [place] [address] [address] [facility] [place] [facility] BASIC METABOLIC PANEL (fasting) GLOMERULAR FILTRATION RATE/1.73 SQ M.PREDICTED [VOLUME RATE/AREA] IN SERUM, PLASMA OR BLOOD BY CREATININE- BASED FORMULA (CKD-EPI 2020) 77 mL/min 60 12/14 Specimen Type: SERUM No comment entered. Ordering Provider: Brennen LUCERO Report Released Date/Time: Oct 01, 2023 10:36 AM Reporting Lab: [facility] [address] [address] Performing Lab: [facility] [address] [facility] HEMOGLOBI N A1C PANEL HEMOGLOBIN A1C/HEMOGLO BIN.TOTAL IN BLOOD BY HPLC 6.1 4.0 - 5.6 09/09 H Specimen Type: BLOOD Comment: Values obtained from A1C measurement s can vary. For atypical A1C assays, a reported value of 7.0 could actually be between 6.72 and 7.28 if measured by a reference method. A reported value of 9.0 could actually be between 8.73 and 9.27. Ref: http://www. ngsp.org/[place] Pdata.asp Ordering Provider: Brennen LUCERO Report Released Date/Time: Sep 10, 2023 07:48 AM Reporting Lab: [address] [address] Performing Lab: [facility] [address] [address] [facility] LIPID PANEL FASTING CHOLESTEROL [MASS/VOLUM E] IN SERUM OR PLASMA 172 mg/dL 09/09 Specimen Type: SERUM No comment entered. Ordering Provider: Brennen LUCERO Report Released Date/Time: Sep 10, 2023 07:48 AM Reporting Lab: [address] [address] Performing Lab: [facility] [address] [facility] LIPID PANEL FASTING TRIGLYCERID E [MASS/VOLUM E] IN SERUM OR PLASMA 105 mg/dL 0 - 150 09/09 Specimen Type: SERUM No comment entered. Ordering Provider: Brennen LUCERO Report Released Date/Time: Sep 10, 2023 07:48 AM Reporting Lab: [address] [address] Performing Lab: [facility] [place] [facility] [address] [address] [facility] LIPID PANEL FASTING CHOLESTEROL IN LDL [MASS/VOLUM E] IN SERUM OR PLASMA BY CALCULATION 94 mg/dL 0 - 129 09/09 Specimen Type: SERUM No comment entered. Ordering Provider: Brennen LUCERO Report Released Date/Time: Sep 10, 2023 07:48 AM Reporting Lab: [facility] [place] [facility] [address] [address] Performing Lab: [facility] [place] [facility] [address] [address] [facility] [place] [facility] LIPID PANEL FASTING CHOLESTEROL .TOTAL/CHOL ESTEROL IN HDL [MASS RATIO] IN SERUM OR PLASMA 3.0 09/09 Specimen Type: SERUM No comment entered. Ordering Provider: Brennen LUCERO Report Released Date/Time: Sep 10, 2023 07:48 AM Reporting Lab: [facility] [place] [facility] [address] [address] Performing Lab: [facility] [place] [facility] [address] [address] [facility] [place] [facility] LIPID PANEL FASTING CHOLESTEROL IN HDL [MASS/VOLUM E] IN SERUM OR PLASMA 57 mg/dL 40 - 60 09/09 Specimen Type: SERUM No comment entered. Ordering Provider: Brennen LUCERO Report Released Date/Time: Sep 10, 2023 07:48 AM Reporting Lab: [facility] [place] [facility] [address] [address] Performing Lab: [facility] [place] [facility] [address] [address] [facility] [place] [facility] BASIC METABOLIC PANEL (fasting) UREA NITROGEN [MASS/VOLUM E] IN SERUM OR PLASMA 18 mg/dL 7 - 25 09/09 Specimen Type: SERUM No comment entered. Ordering Provider: Brennen LUCERO Report Released Date/Time: Sep 10, 2023 07:48 AM Reporting Lab: [facility] [place] [facility] [address] [address] Performing Lab: [facility] [place] [facility] [address] [address] [facility] [facility] BASIC METABOLIC PANEL (fasting) GLUCOSE [MASS/VOLUM E] IN SERUM OR PLASMA 118 mg/dL 65 - 100 09/09 H Specimen Type: SERUM No comment entered. Ordering Provider: Brennen LUCERO Report Released Date/Time: Sep 10, 2023 07:48 AM Reporting Lab: [facility] [place] [facility] [address] [address] Performing Lab: [facility] [address] [address] [facility] BASIC METABOLIC PANEL (fasting) SODIUM [MOLES/VOLU ME] IN SERUM OR PLASMA 136 mmol/L 135 - 145 09/09 Specimen Type: SERUM No comment entered. Ordering Provider: Brennen LUCERO Report Released Date/Time: Sep 10, 2023 07:48 AM Reporting Lab: [facility] [place] [facility] [address] [address] Performing Lab: [facility] [address] [address] [facility]N [facility] BASIC METABOLIC PANEL (fasting) POTASSIUM [MOLES/VOLU ME] IN SERUM OR PLASMA 4.1 mmol/L 3.5 - 5.0 09/09 Specimen Type: SERUM No comment entered. Ordering Provider: Brennen LUCERO Report Released Date/Time: Sep 10, 2023 07:48 AM Reporting Lab: [facility] [place] [facility] [address] [address] Performing Lab: [facility] [place] [facility] [address] [address] [facility] BASIC METABOLIC PANEL (fasting) CHLORIDE [MOLES/VOLU ME] IN SERUM OR PLASMA 100 mmol/L 100 - 110 09/09 Specimen Type: SERUM No comment entered. Ordering Provider: Brennen LUCERO Report Released Date/Time: Sep 10, 2023 07:48 AM Reporting Lab: [facility] [place] [facility] [address] [address] Performing Lab: [facility] [place] [facility] [address] [address] [facility] BASIC METABOLIC PANEL (fasting) CARBON DIOXIDE, TOTAL [MOLES/VOLU ME] IN SERUM OR PLASMA 27 meq/L 20 - 30 09/09 Specimen Type: SERUM No comment entered. Ordering Provider: Brennen LUCERO Report Released Date/Time: Sep 10, 2023 07:48 AM Reporting Lab: [facility] [place] [facility] [address] [address] Performing Lab: [facility] [address] [address] [facility] [place] [facility] BASIC METABOLIC PANEL (fasting) CREATININE [MASS/VOLUM E] IN SERUM OR PLASMA 0.98 mg/dL 0.50 - 1.40 09/09 Specimen Type: SERUM No comment entered. Ordering Provider: Brennen LUCERO Report Released Date/Time: Sep 10, 2023 07:48 AM Reporting Lab: [facility] [place] [facility] [address] [address] Performing Lab: [facility] [place] [facility] [address] [address] [facility] [facility] BASIC METABOLIC PANEL (fasting) GLOMERULAR FILTRATION RATE/1.73 SQ M.PREDICTED [VOLUME RATE/AREA] IN SERUM, PLASMA OR BLOOD BY CREATININE- BASED FORMULA (CKD-EPI 2020) 79 mL/min 60 09/09 Specimen Type: SERUM No comment entered. Ordering Provider: Brennen LUCERO Report Released Date/Time: Sep 10, 2023 07:48 AM Reporting Lab: [facility] [place] [facility] [address] [address] Performing Lab: [facility] [place] [facility] [address] [address] [facility] [place] [facility] LIVER FUNCTION PROTEIN [MASS/VOLUM E] IN SERUM OR PLASMA 6.5 g/dL 6.0 - 8.3 09/09 Specimen Type: SERUM No comment entered. Ordering Provider: Brennen LUCERO Report Released Date/Time: Sep 10, 2023 07:48 AM Reporting Lab: [facility] [place] [facility] [address] [address] Performing Lab: [facility] [place] [facility] [address] [address] [facility] [place] [facility] LIVER FUNCTION ALBUMIN [MASS/VOLUM E] IN SERUM OR PLASMA 4.0 g/dL 3.5 - 5.0 09/09 Specimen Type: SERUM No comment entered. Ordering Provider: Brennen LUCERO Report Released Date/Time: Sep 10, 2023 07:48 AM Reporting Lab: [facility] [place] [facility] [address] [address] Performing Lab: [facility] [place] [facility] [address] [address] [facility] [place] [facility] LIVER FUNCTION ALKALINE PHOSPHATASE [ENZYMATIC ACTIVITY/VO LUME] IN SERUM OR PLASMA 59 U/L 40 - 150 09/09 Specimen Type: SERUM No comment entered. Ordering Provider: Brennen LUCERO Report Released Date/Time: Sep 10, 2023 07:48 AM Reporting Lab: [facility] [place] [facility] [address] [address] Performing Lab: [facility] [place] [facility] [address] [address] [facility] [place] [facility] LIVER FUNCTION ASPARTATE AMINOTRANSF ERASE [ENZYMATIC ACTIVITY/VO LUME] IN SERUM OR PLASMA 18 U/L 5 - 34 09/09 Specimen Type: SERUM No comment entered. Ordering Provider: Brennen LUCERO Report Released Date/Time: Sep 10, 2023 07:48 AM Reporting Lab: [facility] [place] [facility] [address] [address] Performing Lab: [facility] [place] [facility] [address] [address] [facility] [place] [facility] LIVER FUNCTION ALANINE AMINOTRANSF ERASE [ENZYMATIC ACTIVITY/VO LUME] IN SERUM OR PLASMA 19 U/L 09/09 Specimen Type: SERUM No comment entered. Ordering Provider: Brennen LUCERO Report Released Date/Time: Sep 10, 2023 07:48 AM Reporting Lab: [facility] [place] [facility] [address] [address] Performing Lab: [facility] [place] [facility] [address] [address] [facility] [place] [facility] LIVER FUNCTION BILIRUBIN.T OTAL [MASS/VOLUM E] IN SERUM OR PLASMA 0.7 mg/dL 0.2 - 1.2 09/09 Specimen Type: SERUM No comment entered. Ordering Provider: Brennen LUCERO Report Released Date/Time: Sep 10, 2023 07:48 AM Reporting Lab: [facility] [place] [facility] [address] [address] Performing Lab: [facility] [place] [facility] [address] [address] [facility] [place] [facility] BASIC METABOLIC PANEL (fasting) UREA NITROGEN [MASS/VOLUM E] IN SERUM OR PLASMA 20 mg/dL 7 - 25 05/25 Specimen Type: SERUM No comment entered. Ordering Provider: Brennen LUCERO Report Released Date/Time: Feb 06, 2023 10:56 AM Reporting Lab: [facility] [place] [facility] [address] [address] Performing Lab: [facility] [place] [facility] [address] [address] [facility] BASIC METABOLIC PANEL (fasting) GLUCOSE [MASS/VOLUM E] IN SERUM OR PLASMA 127 mg/dL 65 - 100 05/25 H Specimen Type: SERUM No comment entered. Ordering Provider: Brennen LUCERO Report Released Date/Time: Feb 06, 2023 10:56 AM Reporting Lab: [facility] [place] [facility] [address] [address] Performing Lab: [facility] [place] [facility] [address] [address] [facility] [place] [facility] BASIC METABOLIC PANEL (fasting) SODIUM [MOLES/VOLU ME] IN SERUM OR PLASMA 138 mmol/L 135 - 145 05/25 Specimen Type: SERUM No comment entered. Ordering Provider: Brennen LUCERO Report Released Date/Time: Feb 06, 2023 10:56 AM Reporting Lab: [facility] [place] [facility] [address] [address] Performing Lab: [facility] [place] [address] [address] [facility] [place] [facility] BASIC METABOLIC PANEL (fasting) POTASSIUM [MOLES/VOLU ME] IN SERUM OR PLASMA 4.0 mmol/L 3.5 - 5.0 05/25 Specimen Type: SERUM No comment entered. Ordering Provider: Brennen LUCERO Report Released Date/Time: Feb 06, 2023 10:56 AM Reporting Lab: [facility] [place] [facility] [address] [address] Performing Lab: [facility] [place] [facility] [address] [address] [facility] [place] [facility] BASIC METABOLIC PANEL (fasting) CHLORIDE [MOLES/VOLU ME] IN SERUM OR PLASMA 100 mmol/L 100 - 110 05/25 Specimen Type: SERUM No comment entered. Ordering Provider: Brennen LUCERO Report Released Date/Time: Feb 06, 2023 10:56 AM Reporting Lab: [facility] [place] [facility] [address] [address] Performing Lab: [facility] [place] [facility] [address] [address] [facility] BASIC METABOLIC PANEL (fasting) CARBON DIOXIDE, TOTAL [MOLES/VOLU ME] IN SERUM OR PLASMA 28 meq/L 20 - 30 05/25 Specimen Type: SERUM No comment entered. Ordering Provider: Brennen LUCERO Report Released Date/Time: Feb 06, 2023 10:56 AM Reporting Lab: [facility] [place] [facility] [address] [address] Performing Lab: [facility] [address] [address] [facility] BASIC METABOLIC PANEL (fasting) CREATININE [MASS/VOLUM E] IN SERUM OR PLASMA 1.04 mg/dL 0.50 - 1.40 05/25 Specimen Type: SERUM No comment entered. Ordering Provider: Brennen LUCERO Report Released Date/Time: Feb 06, 2023 10:56 AM Reporting Lab: [facility] [place] [facility] [address] [address] Performing Lab: [facility] [place] [facility] [address] [address] [facility] BASIC METABOLIC PANEL (fasting) GLOMERULAR FILTRATION RATE/1.73 SQ M.PREDICTED [VOLUME RATE/AREA] IN SERUM, PLASMA OR BLOOD BY CREATININE- BASED FORMULA (CKD-EPI 2020) 73 mL/min 60 05/25 Specimen Type: SERUM No comment entered. Ordering Provider: Brennen LUCERO Report Released Date/Time: Feb 06, 2023 10:56 AM Reporting Lab: [facility] [place] [facility] [address] [address] Performing Lab: [facility] [place] [address] [address] [facility] Vital Signs Combined list of inpatient and outpatient Vital Signs from Department of Defense and Veterans Affairs, ranging from 12 months to all on record, depending upon the facility. Vital Sign Value Date Comments Source SYSTOLIC BLOOD PRESSURE 126 01/01/20 24 08:29:14 [facility] [place] [facility] DIASTOLIC BLOOD PRESSURE 78 024 08:29:14 [facility] [place] [facility] PULSE OXIMETRY 96 01/01/2024 08:29:14 [facility] WEIGHT 173 01/01/2024 08:29:14 [facility] [place] BMI 30kg/m2 01/01/2024 08:29:14 [facility] PAIN 0 01/01/2024 08:29:14 [facility] TEMPERATURE 97.8 01/01/2024 08:29:14 [facility] [place] PULSE 94 01/01/2024 08:29:14 [facility] [place] RESPIRATION 16 01/01/2024 08:29:14 [facility] [place] SYSTOLIC BLOOD PRESSURE 102 10/01/19 24 10:02:08 [facility] [place] DIASTOLIC BLOOD PRESSURE 64 024 10:02:08 [facility] [place] PULSE OXIMETRY 100 10/01/2023 10:02:08 [facility] [place] WEIGHT 167 10/01/2023 10:02:08 [facility] BMI 29kg/m2 10/01/2023 10:02:08 [facility] [place] PAIN 0 10/01/2023 10:02:08 [facility] [place] TEMPERATURE 76 10/01/2023 10:02:08 [facility] [place] PULSE 74 10/01/2023 10:02:08 [facility] [place] RESPIRATION 16 10/01/2023 10:02:08 [facility] [place] [facility] SYSTOLIC BLOOD PRESSURE 118 06/08/19 24 08:36:34 [facility] [place] [facility] DIASTOLIC BLOOD PRESSURE 74 024 08:36:34 [facility] [place] [facility] PULSE OXIMETRY 97 06/08/2023 08:36:34 [facility] [place] WEIGHT 170 06/08/2023 08:36:34 [facility] [place] BMI 29kg/m2 06/08/2023 08:36:34 [facility] [place] PAIN 0 06/08/2023 08:36:34 [facility] [place] [facility] TEMPERATURE 98 06/08/2023 08:36:34 [facility] [place] PULSE 78 06/08/2023 08:36:34 [facility] [place] [facility] RESPIRATION 16 06/08/2023 08:36:34 [facility] [place] [facility] Encounters Combined list of: 1) Encounters from Department of Veterans Affairs facilities going back up to thelast 18 months. 2) Encounters from the Department of Defense facilities going back up to 280 months. Location Location Details Encounter Type Encounter Number Reason For Visit Attending Provider ADM Date DC Date Status Disposition Source [facility] [place] [facility] OFFICE O/P EST LOW 20-29 MIN [id number] Diagnos is: ICD-10- CM E11.9 Type 2 diabete s mellitu s without complic ations< br/> DALLIN LUCERO 10/10 [facility] [place] [facility] ELECTROCAR DIOGRAM REPORT [id number] Diagnos is: ICD-10- CM Z13.6 Encount er for screeni ng for cardiov ascular disorde rs
THONY RUFFIN E 10/10 [facility] [place] [facility] Out[facility] Encounter [id number] 10/11 [facility] [place] [facility] THERAPEUTI C EXERCISES [id number] Diagnos is: ICD-10- CM M13.852 Other specifi ed arthrit is, left hip<br/ > WALE PALMA 11/06 [facility] THERAPEUTI C EXERCISES [id number] Diagnos is: ICD-10- CM M25.552 Pain in left hip<br/ > MANPREET PARK 11/11 [facility] MANUAL THERAPY 1/> [place] [id number] Diagnos is: ICD-10- CM M25.552 Pain in left hip<br/ > [place] 11/18 [facility] [place] Outpatient Encounter [id number] 11/24 [facility] MANUAL THERAPY 1/> [place] [id number] Diagnos is: ICD-10- CM M25.552 Pain in left hip<br/ > [place] PARK 11/24 [facility] [place] Outpatient Encounter [id number] Fany SWARTZ 11/25 [facility] UNLISTED SPEC DERM SVC/PX [id number] Diagnos is: ICD-10- CM Z13.89 Encount er for screeni ng for other disorde r
SIENA HAGER A 11/26 [facility] [place] [facility] [place] [id number] Diagnos is: ICD-10- CM L40.8 Other psorias is
LOI OLSON 11/26 [facility] En[facility] [id number] 11/26 [facility] En[facility] [id number] Fany SWARTZ 11/27 [facility] HEARING AID REPAIR/MOD IFYING [id number] Diagnos is: ICD-10- CM Z46.1 Encount er for fitting and adjustm ent of hearing aid<br/ > Belkys TURCIOS 12/01 [facility] THERAPEUTI C EXERCISES [id number] Diagnos is: ICD-10- CM M25.552 Pain in left hip<br/ > WALE PALMA IRVIN MANCILLA 12/04 [facility] THERAPEUTI C EXERCISES [id number] Diagnos is: ICD-10- CM M25.552 Pain in left hip<br/ > WALE PALMA IRVIN CHARO 12/18 [facility] THERAPEUTI C EXERCISES [id number] Diagnos is: ICD-10- CM M25.552 Pain in left hip<br/ > WALE PALMA IRVIN CHARO 12/25 [facility] THERAPEUTI C EXERCISES [id number] Diagnos is: ICD-10- CM M25.552 Pain in left hip<br/ > WALE PALMA IRVIN CHARO 12/30 [facility] THERAPEUTI C EXERCISES [id number] Diagnos is: ICD-10- CM M25.552 Pain in left hip<br/ > WALE PALMAEY CHARO 01/05 [facility] [place] EXAM&[place] [id number] Diagnos is: ICD-10- CM E11.9 Type 2 diabete s mellitu s without complic ations< br/> SUPA PAEZ E 01/16 [facility] FIT SPECTACLES MONOFOCAL [id number] Diagnos is: ICD-10- CM Z46.0 Encount er for fit/adj st of spectac les and contact lenses< br/> SUPA PAEZ E 01/19 [facility] En[facility] [id number] 01/29 [facility] En[facility] [id number] 02/03 [facility] OFF[facility] O/P EST LOW 20-29 MIN [id number] Diagnos is: ICD-10- CM E11.9 Type 2 diabete s mellitu s without complic ations< br/> DALLIN LUCERO 02/06 [facility] SELF CARE MNGMENT TRAINING [id number] Diagnos is: ICD-10- CM M25.552 Pain in left hip<br/ > WALE PALMA CHARO 02/12 [facility] En[facility] [id number] 03/24 [facility] OFFICE O/P EST MOD 30 MIN [id number] Diagnos is: ICD-10- CM L40.9 Psorias is, unspeci fied
NINA MEDINA 03/24 [facility] Out[facility] Encounter [id number] 03/24 [facility] Out[facility] Encounter [id number] 03/25 [facility] Out[facility] Encounter [id number] 04/02 [facility] Out[facility] Encounter [id number] 04/16 [facility] Out[facility] Encounter [id number] Fany SWARTZ 05/05 [facility] OFFICE O/P EST MOD 30 MIN [id number] Diagnos is: ICD-10- CM M62.08 Separat ion of muscle (nontra umatic) , other site
MAHESH MARIE 06/07 [facility] Out[facility] En[facility] [id number] Fany SWARTZ 06/23 [facility] Out[facility] Encounter [id number] Fany SWARTZ 07/26 [facility] Out[facility] En[facility] [id number] Luis SINGH 08/19 [facility] OFFICE O/P EST LOW 20 MIN [id number] Diagnos is: ICD-10- CM E11.9 Type 2 diabete s mellitu s without complic ations< br/> DALLIN LUCERO Kavita 09/30 [facility] Out[facility] Encounter [id number] 10/23 [facility] En[facility] [id number] Diagnos is: ICD-10- CM U07.1 COVID-1 9
JENNIFER LION R 10/24 [facility] OL DIG ASSMT&MGMT 5-10 [id number] Diagnos is: ICD-10- CM U07.1 COVID-1 9
KIKI FATIMA 10/25 [facility] Out[facility] Encounter [id number] Fany SWARTZ 10/26 [facility] OFFICE O/P EST LOW 20 MIN [id number] Diagnos is: ICD-10- CM E11.9 Type 2 diabete s mellitu s without complic ations< br/> DALLIN LUCERO Kavita 12/31 [facility] OFFICE O/P EST HI 40 MIN [id number] Diagnos is: ICD-10- CM L40.9 Psorias is, unspeci fied
NINA MEDINA 01/06 [facility] HEARING AID EXAM BOTH EARS [id number] Diagnos is: ICD-10- CM H90.3 Sensori neural hearing loss, bilater al
Belkys TURCIOS E 01/17 [facility] FIT SPECTACLES MONOFOCAL [id number] Diagnos is: ICD-10- CM E11.9 Type 2 diabete s mellitu s without complic ations< br/> SUPA PAEZ E 01/19 [facility] FIT SPECTACLES MONOFOCAL [id number] Diagnos is: ICD-10- CM Z46.0 Encount er for fit/adj st of spectac les and contact lenses< br/> SUPA PAEZ E 01[facility]19 [facility] Out[facility] Encounter [id number] [facility] ISTOPHER E 02/07 [facility] Outpatient Encounter [id number] [facility] ISTOPHER E 02/11 [facility] Outpatient Encounter [id number] [facility] I[facility]HER E 02/11 [facility] CONFORMITY EVALUATION [id number] Diagnos is: ICD-10- CM Z46.1 Encount er for fitting and adjustm ent of hearing aid<br/ > PECKVENTURAChristina JULIO GUALLPA 02/17 [facility] Social History Combined list of available smoking, tobacco, and other social history from Department of Defense and Veterans Affairs facilities. Social History Type Response Date Comment Sourc e Tobacco smoking status NHIS VA-TOBACCO FORMER USER 01/01/2024 [facility] [place] [facility] History of tobacco use OR-TOBACCO QUIT 15 YRS OR MORE 01/01/2024 [facility] History of tobacco use OR-TOBACCO QUIT 15 YRS OR MORE 01/29/2023 [facility] [place] [facility] History of tobacco use OR-TOBACCO FORMER USER 12/13/2021 [facility] [place] [facility] History of tobacco use OR-TOBACCO QUIT 15 YRS OR MORE 01/02/2021 [facility] [place] [facility] History of tobacco use OR-TOBACCO FORMER USER 02/01/2020 [facility] [place] [facility] History of tobacco use OR-TOBACCO FORMER USER 11/16/2018 [facility] [place] [facility] History of tobacco use OR-TOBACCO QUIT 15 YRS OR MORE 11/06/2017 [facility] [place] [facility] History of tobacco use LIFETIME NON-TOBACCO USER 01/07/2017 [facility] [place] [facility] History of tobacco use QUIT TOBACCO USE > 7 YEARS AGO 01/08/2016 [facility] [place] [facility] History of tobacco use QUIT TOBACCO USE > 7 YEARS AGO 10/10/2014 . [facility] [place] [facility] Plan of Care List of future care activities from Department of Veterans Affairs facilities. Additional future care activities may be listed in the Assessment and Plan section. Date/Time Care Activity Care Activity Detail Facili ty 03/02/2024 AMBULATORY - MEDICINE AMBULATORY - MEDICI [place] [facility] [place] [facility] 07/05/2024 AMBULATORY - MEDICINE AMBULATORY - MEDICI NE [facility] [place] [facility] 02/12/2024 Consult Order [facility] Cons Manager Drive[facility] Choice [facility] Advance Directives List of completed, amended, or rescinded Advance Directives on record at Department of [facility] facilities. An actual copy of the Directive is not included. Date Advance Directive Provider Source 12/02/2019 ADVANCE DIRECTIVE LI ZHAO [facility]
--- OUTSIDE RECORDS SUMMARY | 2024-03-02 08:46 | XMS_ITS | Encounter Summary ---
Author Name [facility] [facility] [place] Address [address] [place] [address] Care Team Providers Care Bell Spinner Sousaphones Name Role Phone DALLIN LUCERO Primary Care [...] PART A Mar 16, 2010 PART A [id number] LOWELL FRANK JR PATIENT MEDICARE (WNR) MEDICARE (M) PART A Mar 16, 2010 PART A [id number] LOWELL FRANK JR PATIENT MEDICARE (WNR) MEDICARE (M) PART A Mar 16, 2010 PART A [id number] LOWELL FRANK JR PATIENT Selected Encounter This section includes the information on record at [place] for the Encounter. Date/Time Encounter Type Encounter Description Reason Provider Source Jun 08, 2023 08:30 AM OFFICE O/P EST MOD 30 MIN COMP [facility] ICD-10-CM M62.08 Separation of muscle (nontraumatic), other site MARIE,KAUSHIKRAVINDRA MARTINEZHRYN [facility] Encounter Template Text not used by [place] Assessments - Encounter Diagnoses This section includes the primary and secondary diagnoses documented for the Encounter. Date/Time Primary/Secondary Diagnosis Diagnosis Name Provider Source Jun 08, 2023 11:02 AM PRIMARY Separation of muscle (nontraumatic), other site MARIETHEODORE Velásquez [facility] Jun 08, 2023 11:02 AM SECONDARY Family history of malignant neoplasm, unspecified MARIE,RAANDREI Eduardo [facility] Jun 08, 2023 11:02 AM SECONDARY Herpesviral infection, unspecified MARIE,RAANDREI Eduardo [facility] Jun 08, 2023 11:02 AM SECONDARY Psoriasis, unspecified CYNTHIATHEODORE Eduardo [facility] Plan of Treatment: Future Appointments (+ 6 months) and Future Tests (+/- 45 days) The Plan of Treatment section includes future care activities for the patient from [facility] [place] [facility] This section includes future appointments and future orders which are active, pending or scheduled. Future Appointments This section includes appointments that were scheduled to occur 6 months from the date of the Encounter, up to a maximum of 20 appointments. The data comes from all [place] treatment facilities. Appointment Date/Time Appointment Type Appointme nt Facility Name Oct 01, 2023 10:00 AM [facility]ATORY - [facility] Oct 25, 2023 11:00 AM [facility]BULATORY [facility] Lab Results: +/- 30 days of the encounter This section includes the Chemistry and Hematology Lab Results on record with [place] for the patient. Radiology Reports and Pathology Reports are provided separately, in subsequent sections. Lab Results This section contains the Chemistry/Hematology Results that were resulted 30 days before or 30 daysafter the date of the Encounter. Date/Time Source Result Type Result - Unit Interpretation Reference Range Comment May 26, 2023 08:01 AM [facility] BASIC METABOLIC PANEL (fasting) Specimen Type: SERUM No comment entered. Ordering Provider: TANMAY LUCERO F Report Released Date/Time: Feb 06, 2023 10:56 AM Reporting Lab: [facility] [address] [facility] [address] Performing Lab: [address] [address] UREA NITROGEN 20 mg/dL 7-25 GLUCOSE 127 mg/dL H 65-100 SODIUM 138 mmol/L 135-145 POTASSIUM 4.0 mmol/L 3.5-5.0 CHLORIDE 100 mmol/L 100-110 CO2 28 meq/L 20-30 CREATININE, Serum 1.04 mg/dL 0.50-1.40 eGFR(CKD-EPI 2020) 73 mL/min >60 May 26, 2023 08:01 AM [facility] HEMOGLOBIN A1C PANEL Specimen Type: BLOOD Comment: Values obtained from A1C measurements can vary. For atypical A1C assays, a reported value of 7.0 could actually be between 6.72 and 7.28 if measured by a reference method. A reported value of 9.0 could actually be between 8.73 and 9.27. Ref: http://www.ngs p.org/CAPdata. asp Ordering Provider: TANMAY LUCERO F Report Released Date/Time: Feb 06, 2023 10:56 AM Reporting Lab: [facility] [address] [facility] [address] Performing Lab: [address] [address] HEMOGLOBIN A1C 6.3 H 4.0-5.6 May 26, 2023 08:01 AM [facility] LIVER FUNCTION Specimen Type: SERUM No comment entered. Ordering Provider: TANMAY LUCERO F Report Released Date/Time: Feb 06, 2023 10:56 AM Reporting Lab: [facility] [address] [facility] [address] Performing Lab: [address] [address] PROTEIN,TOTAL 6.8 g/dL 6.0-8.3 ALBUMIN 4.1 g/dL 3.5-5.0 ALKALINE PHOSPHATASE 61 U/L 40-150 AST 18 U/L 5-34 ALT 23 U/L BILIRUBIN, TOTAL 0.7 mg/dL 0.2-1.2 May 26, 2023 08:01 AM [facility] LIPID PANEL FASTING Specimen Type: SERUM No comment entered. Ordering Provider: TANMAY LUCERO Report Released Date/Time: Feb 06, 2023 10:56 AM Reporting Lab: [facility] [address] [facility] [address] Performing Lab: [facility] [address] [facility] [address] CHOLESTEROL 163 mg/dL TRIGLYCERIDE 144 mg/dL 0-150 LDL calculated 79 mg/dL 0-129 CHOL/HDL 3.0 HDL CHOLESTEROL 55 mg/dL 40-60 Vital Signs: All taken on the encounter date This section contains inpatient and outpatient Vital Signs collected on the date of the Encounter. Date/Time Temperature Pulse Blood Pressure Respiratory Rate SP02 Pain Height Weight Body Mass Index Source Jun 08, 2023 08:36 AM 98 78 118/74 16 97 0 170 29 [facility] Social History: Smoking Status (Most current) and Tobacco Use (All prior to encounter date) This section includes the most current, and the historical, smoking and tobacco- related health factors from the [place] facility where the Encounter took place. Current Smoking Status This section includes the most current smoking, or tobacco-related health factor, from the [place] facility where the Encounter took place. Date/Time Current Smoking Status Comment Supriya porrasy Jan 29, 2023 09:44 AM VA-TOBACCO FORMER USER [facility] Tobacco Use History This section includes a history of the smoking, or tobacco-related health factors, that were collected on or before the date of the Encounter. The data comes from the [place] facility where the Encounter took place. Date/Time Smoking Status/Tobacco Use Comment F vee Jan 29, 2023 09:44 AM VA-TOBACCO QUIT 15 YRS OR MORE [facility] Dec 13, 2021 11:25 AM VA-TOBACCO FORMER USER [facility] Dec 13, 2021 11:25 AM VA-TOBACCO QUIT 15 YRS OR MORE [place] [facility] [place] [facility] Jan 02, 2021 02:07 PM VA-TOBACCO FORMER USER [facility] [place] [facility] Jan 02, 2021 02:07 PM VA-TOBACCO QUIT 15 YRS OR MORE [facility] [place] [facility] Feb 01, 2020 08:30 AM VA-TOBACCO FORMER USER [facility] [place] [facility] Feb 01, 2020 08:30 AM VA-TOBACCO QUIT 15 YRS OR MORE [facility] [place] [facility] Nov 16, 2018 02:39 PM VA-TOBACCO FORMER USER [facility] [place] [facility] Nov 16, 2018 02:39 PM VA-TOBACCO QUIT 15 YRS OR MORE [facility] [place] [facility] Nov 06, 2017 02:22 PM VA-TOBACCO FORMER US[place] [facility] [place] [facility] Nov 06, 2017 02:22 PM VA-TOBACCO QUIT 15 YRS [place] MORE [place] [facility] [place] [facility] Jan 07, 2017 09:30 AM LIFETIME NON-TOBACCO USER [place] [facility] [place] [facility] Jan 08, 2016 09:06 AM QUIT TOBACCO USE > 7 YEARS AGO [place] [facility] [place] [facility] Oct 10, 2014 11:16 AM QUIT TOBACCO USE > 7 YEARS AGO . [place] [facility] [place] [facility] Advance Directives: All historical and current Section Date Range: From patient's date of to the date document was created. This section includes ALL of a patient's completed or amended [place] Advance and Rescinded Directives. The entries below indicate that a directive exists for the patient, but an actual copy is not included with this document. The data comes from all [place] facilities. Date Advance Directives Provider Source Dec 02, 2019 ADVANCE DIRECTIVE LI ZHAO [place] [facility] [place] [facility] Encounter Notes: All associated encounter notes This section contains the clinical notes associated to the Encounter. Date/Time Encounter Note(s) Provider Source Jun 08, 2023 08:52 AM PREVENTIVE MEDICINE NURSING NOTE: LOCAL TITLE: CLINICAL REMINDERS/NURSING STANDARD TITLE: PREVENTIVE MEDICINE NURSING NOTE DATE OF NOTE: JUN 08, 2023@08:52 ENTRY DATE: JUN 08, 2023@08:53:33 AUTHOR: ELLIE BENITEZ EXP COSIGNER: URGENCY: STATUS: COMPLETED Homelessness/Food Insecurity Screen: In the past 2 months, have you been living in stable housing that you own, rent, or stay in as part of a household? Yes - Living in stable housing. Are you worried or concerned that in the next 2 months you may NOT have stable housing that you own, rent, or stay in as part of a household? No - Not worried about housing near future [employer] [place] reports the following: Within the past 12 months, you worried whether your food would run out before you got money to buy more. Never true Within the past 12 months, the food you bought just didn't last and you didn't have money to get more. Never true Falls & Incontinence Screen: Falls Screen: 4. No falls within the past year. Incontinence Screen No incontinence. /es/ ELLIE BENITEZ LPN Signed: 06/08/2023 08:54 RADHA BENITEZ [place] [facility] [place] [facility] Jun 08, 2023 08:40 AM PRIMARY CARE NURSE PRACTITIONER OUTPATIENT NOTE: LOCAL TITLE: NURSE PRACTITIONER OUTPATIENT NOTE STANDARD TITLE: PRIMARY CARE NURSE PRACTITIONER OUTPATIENT NOTE DATE OF NOTE: JUN 08, 2023@08:40 ENTRY DATE: JUN 08, 2023@08:40:16 AUTHOR: RONALD MARIE EXP COSIGNER: URGENCY: STATUS: COMPLETED CC Presents today for routine follow up HPI This is a 78 y/o male with history of Active problems - Computerized Problem List is the source for the followin. Diastasis recti 2. Type 2 diabetes mellitus without complication 3. Psoriasis 4. Herpes simplex 5. Family history of malignant melanoma Father. 6. Hearing Loss Denies any recent fever, chills, cough, chest pain, sob, dizziness. No recent UC visits or hospitalizations Vet is doing really well. Reports a few months ago was switched from omeprazole to famotidine, but he feels his GERD sx are not well controlled on famotidine. He would like to swtich back to omperazole. Good about watching diet, occasionally pasta sauce will cause sx. About one year ago, was having issues with chest pain, back issues. Saw PT, had cardiac stress test --took about 5 mo to schedule, was given all clear. Muscular discomfort has resolved. DM -A1c 6.3 05/2023 -watches diet closely -walks ofr exercise Psoriasis -scattered plaques ,involves eyes scalps, doing well on current reigmen +FH melanoma, follows with [facility] BPH on tamsulosin, no issues, voiding well HTN well controlled on losartan and HCTZ ALLERGIES Data on this list may not be complete. Please check JLV. FACILITY ALLERGY/ADR -------- No Remote Allergy/ADR Data available for this patient [place] [facility] [place] [facility] [place] MEDICATIONS: Active and Recently Outpatient Medications (excluding Supplies): Active Outpatient Medications Status 1) ACYCLOVIR 400MG TAB TAKE ONE TABLET BY MOUTH THREE ACTIVE TIMES DAILY NEEDED 2) CETIRIZINE HCL 10MG TAB TAKE ONE TABLET BY MOUTH ONCE ACTIVE DAILY NEEDED FOR ALLERGIES 3) CHOLECALCIF 25MCG (D3-1,000UNIT) TAB TAKE ONE TABLET ACTIVE BY MOUTH ONCE DAILY FOR VITAMIN SUPPLEMENTATION 4) FAMOTIDINE 20MG TAB TAKE ONE TABLET BY MOUTH TWICE ACTIVE DAILY NEEDED FOR STOMACH ACID 5) FLUTICASONE PROP 50MCG 120D NASAL INHL INSTILL 1 ACTIVE SPRAY INTO EACH NOSTRIL TWICE DAILY NEEDED 6) HYDROCHLOROTHIAZIDE 25MG TAB TAKE ONE TABLET BY MOUTH ACTIVE EVERY MORNING TO PREVENT FLUID/CONTROL BLOOD PRESSURE 7) IBUPROFEN 400MG TAB TAKE ONE TABLET BY MOUTH TWICE ACTIVE DAILY NEEDED TAKE WITH FOOD; FOR PAIN/INFLAMMATION/SWELLING 8) KETOCONAZOLE 2% SHAMPOO SHAMPOO SMALL AMOUNT ACTIVE TOPICALLY EVERY 3 DAYS NEEDED 9) LOSARTAN 100MG TAB TAKE ONE TABLET BY MOUTH ONCE ACTIVE DAILY FOR BLOOD PRESSURE/HEART 10) METFORMIN HCL 1000MG TAB TAKE ONE TABLET BY MOUTH ACTIVE ONCE DAILY FOR DIABETES 11) SIMVASTATIN 80MG TAB TAKE ONE-HALF TABLET BY MOUTH AT ACTIVE BEDTIME FOR CHOLESTEROL 12) TACROLIMUS 0.03% TOP OINT APPLY THIN LAYER TOPICALLY ACTIVE TWICE DAILY NEEDED 13) TAMSULOSIN HCL 0.4MG CAP TAKE ONE CAPSULE BY MOUTH AT ACTIVE BEDTIME SOCIAL HISTORY Tobacco quit smoking 1984 Alcohol occasional ETOH beer/wine PE General: NAD, pleasant,comversamt HEENT PERRLA, EOMIs, B/L intact TMs,no lymphadenopathy, no lesions/exudate of posterior pharynx, tongue midline without lesions RESP clear to auscultation bilaterally CV RR S1 S2 No m/r/g (-) Pedal Edema GI BS + x 4, soft, nontender, nondistended, no rebound or guarding NEURO CN II-XII without focal deficit, gait steady without shuffle, MENTAL A&Ox3 Appropriate, Pleasant, Cooperative VITALS 98 F [36.7 C] (06/08/2023 08:36) 78 (06/08/2023 08:36) 16 (06/08/2023 08:36) 118/74 (06/08/2023 08:36) 0 (06/08/2023 08:36) 64.25 in [163.2 cm] (10/10/2014 11:10) 170 lb [77.11 kg] (06/08/2023 08:36) BMI: 29.0 A/P GERD -switch from famotidine to omeprazole per vet request above for improved sx management DM -A1c 6.3 05/2023 -good control, continue diet and exercise Psoriasis -scattered plaques ,involves eyes scalps, doing well on current reigmen +FH melanoma, follows with [facility] BPH on tamsulosin, no issues, voiding well HTN well controlled on losartan and HCTZ Herpes -well controlled on acyclovir Medication Reconciliation: Outpatient: Has the patient been taking medications as documented in the EMLR? YES: The patient has been taking medications as documented in the EMLR. Essential Medication List for Review used to complete this medication reconciliation. INCLUDED IN THIS LIST: Alphabetical list of active outpatient prescriptions dispensed from this [facility] (local) and dispensed from another VA or DoD facility (remote) as well as inpatient orders (local, pending and active), local clinic medications, locally documented non-VA medications, and local prescriptions that have or been discontinued in the past 90 days. - All changes in medications, including all non-VA/Herbal/OTC medications were entered into CPRS. - If there were any medications the patient should no longer take, they were discontinued. - The patient/caregiver was instructed to update this list, discard old lists, and take this list to the next appointment, whether with a VA or non-VA provider. /mary kate/ RONALD MARIE NP NURSE PRACTITIONER Signed: 06/08/2023 11:02 RONALD MARIE [place] [facility]
--- OUTSIDE RECORDS SUMMARY | 2024-03-02 08:46 | XMS_ITS ---
Author Name [facility] [facility] [place] [facility] [facility] [place] Address [address] [place] [address] Care Team Providers Care Bottom Man Name Role Phone DALLIN LUCERO Primary Care [...] PART A Mar 16, 2010 PART A [id number] [phone] LOWELL FRANK JR PATIENT MEDICARE (WNR) MEDICARE (M) PART A Mar 16, 2010 PART A [id number] LOWELL FRANK JR PATIENT MEDICARE (WNR) MEDICARE (M) PART A Mar 16, 2010 PART A [id number] [phone] LOWELL FRANK JR PATIENT Selected Encounter This section includes the information on record at [place] for the Encounter. Date/Time Encounter Type Encounter Description Reason Pro vider Source Apr 16, 2023 12:00 AM Outpatient Encounter COMMUNITY CARE CONSULT IHE Encounter Template Text not used by [place] Plan of Treatment: Future Appointments (+ 6 months) and Future Tests (+/- 45 days) The Plan of Treatment section includes future care activities for the [facility] [place] [facility] This section includes future appointments and future orders which are active, pending or scheduled. Future Appointments This section includes appointments that were scheduled to occur 6 months from the date of the Encounter, up to a maximum of 20 appointments. The data comes from all [place] treatment facilities. Appointment Date/Time Appointment Type Appointme nt Facility Name Jun 08, 2023 08:30 AM AMBULATORY - MEDICINE [facility] Oct 01, 2023 10:00 AM AMBULATORY MEDICINE [facility] Lab Results: +/- 30 days of the encounter This section includes the Chemistry and Hematology Lab Results on record with [place] for the patient. Radiology Reports and Pathology Reports are provided separately, in subsequent sections. Lab Results This section contains the Chemistry/Hematology Results that were resulted 30 days before or 30 daysafter the date of the Encounter. Date/Time Source Result Type Result - Unit Interpretation Reference Range Comment Apr 30, 2023 08:22 AM [facility] VITAMIN B-1 (THIAMINE)-(QU) Specimen Type: PLASMA Comment: Vitamin supplementation within 24 hours prior to blood draw may affect the accuracy of the results. This test was developed and its analytical performance characteristics have been determined by [employer] [place] It has not been cleared or approved by the U.S. Food and Drug Administration. This assay has been validated pursuant to the CLIA regulations and is used for clinical purposes. Test Performed by [facility], [facility], [address] [place] [address] Andrés Villalpando M.D., Ph.D., Director of Laboratories , CLIA [id number] TEST PERFORMED AT: , Ordering Provider: LOWELL LUCERO Report Released Date/Time: Apr 24, 2023 06:07 PM Reporting Lab: [facility] [address] [facility] [address] Performing Lab: [address] [place] [place] [address] VITAMIN B-1 (THIAMINE)-(Q U) 8 nmol/L 8-30 Apr 30, 2023 08:22 AM [facility] FOLATE Specimen Type: SERUM No comment entered. Ordering Provider: LOWELL LUCERO Report Released Date/Time: Apr 24, 2023 06:07 PM Reporting Lab: [facility] [address] [facility] [address] Performing Lab: [facility] [address] [facility] [address] FOLATE 9.57 ng/mL >5.2 Apr 30, 2023 08:22 AM [facility] HEMOGLOBIN A1C PANEL Specimen Type: BLOOD Comment: Values obtained from A1C measurements can vary. For atypical A1C assays, a reported value of 7.0 could actually be between 6.72 and 7.28 if measured by a reference method. A reported value of 9.0 could actually be between 8.73 and 9.27. Ref: http://www.ngsp. org/CAPdata.asp Ordering Provider: LOWELL LUCERO Report Released Date/Time: Apr 24, 2023 06:07 PM Reporting Lab: [facility] [address] [facility] [address] Performing Lab: [address] [address] HEMOGLOBIN A1C 6.3 H 4.0-5.6 Apr 30, 2023 08:22 AM [facility] LIPID PANEL, NON FASTING Specimen Type: SERUM No comment entered. Ordering Provider: LOWELL LUCERO Report Released Date/Time: Apr 24, 2023 06:07 PM Reporting Lab: [facility] [address] [facility] [address] Performing Lab: [address] [address] CHOLESTEROL 164 mg/dL TRIGLYCERIDE 117 mg/dL 0-150 LDL calculated 82 mg/dL 0-129 CHOL/HDL 2.8 HDL CHOLESTEROL 59 mg/dL 40-60 Apr 30, 2023 08:22 AM [facility] BASIC METABOLIC PANEL (fasting) Specimen Type: SERUM No comment entered. Ordering Provider: LOWELL LUCERO Report Released Date/Time: Apr 24, 2023 06:07 PM Reporting Lab: [address] [address] Performing Lab: [address] [address] UREA NITROGEN 23 mg/dL 7-25 GLUCOSE 171 mg/dL H 65-100 SODIUM 137 mmol/L 135-145 POTASSIUM 4.1 mmol/L 3.5-5.0 CHLORIDE 98 mmol/L L 100-110 CO2 27 meq/L 20-30 CREATININE, Serum 1.08 mg/dL 0.50-1.40 eGFR(CKD-EPI 2020) 70 mL/min >60 Apr 30, 2023 08:22 AM [facility] LIVER FUNCTION Specimen Type: SERUM No comment entered. Ordering Provider: LOWELL LUCERO Report Released Date/Time: Apr 24, 2023 06:07 PM Reporting Lab: [address] [address] Performing Lab: [address] [address] PROTEIN,TOTAL 7.2 g/dL 6.0-8.3 ALBUMIN 4.2 g/dL 3.5-5.0 ALKALINE PHOSPHATASE 71 U/L 40-150 AST 17 U/L 5-34 ALT 25 U/L BILIRUBIN, TOTAL 0.6 mg/dL 0.2-1.2 Apr 30, 2023 08:22 AM [facility] MICROALBUMIN CREATININE RATIO PANEL Specimen Type: URINE No comment entered. Ordering Provider: LOWELL LUCERO Report Released Date/Time: Apr 24, 2023 06:07 PM Reporting Lab: [address] [address] Performing Lab: [facility] [address] [facility] [address] MICROALBUMIN/ CREATININE RATIO 11.7 mg/g 0-29.9 MICROALBUMIN, QUANTITATIVE 2.2 mg/dL RR UNAVAIL CREATININE URINE 188.04 mg/dL Apr 30, 2023 08:22 AM [facility] VITAMIN B12 Specimen Type: SERUM No comment entered. Ordering Provider: LOWELL LUCERO Report Released Date/Time: Apr 24, 2023 06:07 PM Reporting Lab: [facility] [address] [facility] [address] Performing Lab: [address] [address] VITAMIN B12 330 pg/mL 200-900 Apr 30, 2023 08:22 AM [facility] FERRITIN Specimen Type: SERUM No comment entered. Ordering Provider: LOWELL LUCERO Report Released Date/Time: Apr 24, 2023 06:07 PM Reporting Lab: [facility] [address] [facility] [address] Performing Lab: [address] [address] FERRITIN 233 ng/mL 20-300 Apr 30, 2023 08:22 AM [facility] IRON & TIBC PANEL Specimen Type: SERUM No comment entered. Ordering Provider: LOWELL LUCERO Report Released Date/Time: Apr 24, 2023 06:07 PM Reporting Lab: [address] [address] Performing Lab: [address] [address] TIBC 322 ug/dL 204-475 IRON 118 ug/dL 40-160 Transferrin Saturation 36.6 20.0-50.0 Apr 30, 2023 08:22 AM [facility] URINALYSIS Specimen Type: URINE Comment: If Glucose = >500 and Ketones are positive, please alert the Physician. Ordering Provider: LOWELL LUCERO Report Released Date/Time: Apr 24, 2023 06:07 PM Reporting Lab: [address] [address] Performing Lab: [address] [address] UA COLOR Yellow Yellow UA APPEARANCE Clear Clear UA GLUCOSE 30 mg/dL Negative UA KETONES NEGATIVE mg/dL Negative UA BLOOD NEGATIVE mg/dL Negative UA PROTEIN 20 mg/dL Negative UA NITRITE NEGATIVE mg/dL Negative UA BILIRUBIN NEGATIVE mg/dL Negative UA SPECIFIC GRAVITY 1.029 H 1.016-1.02 2 UA pH 6.0 5.0-9.0 UA UROBILINOGEN 2.0 mg/dL <2.0 UA LEUKOCYTE NEGATIVE Negative Apr 30, 2023 08:22 AM [facility] CBC AND DIFF (AUTO) Specimen Type: BLOOD No comment entered. Ordering Provider: LOWELL LUCERO Report Released Date/Time: Apr 24, 2023 06:07 PM Reporting Lab: [address] [address] Performing Lab: [address] [address] WBC 5.36 10*3/uL 4.50-11.00 RBC 4.43 10*6/uL 4.23-5.66 HGB 14.3 g/dL 12.8-17 HCT 41.5 39.2-50.4 MCV 93.7 fL 82-99 MCHC 34.5 g/dL 30.8-35.1 PLT 221 10*3/uL 140-360 RDW-CV 11.9 L 12.0-16.0 Patrick, Abs 0.51 10*3/uL 0.30-1.10 MCH 32.3 pg 26.2-32.6 Neut % 55.1 43.7-75.8 Lymph % 31.2 14.0-42.3 Patrick % 9.5 5.1-13.7 Eos % 3.4 0.4-6.8 Baso % 0.6 0.1-2.0 Neut, Abs 2.96 10*3/uL 2.20-7.60 Lymph, Abs 1.67 10*3/uL 1.00-3.20 Eos, Abs 0.18 10*3/uL 0.03-0.44 Baso, Abs 0.03 10*3/uL 0.01-0.13 Immature Gran % 0.2 0.0-0.7 Immature Gran, Abs 0.01 10*3/uL 0.00-0.06 Social History: Smoking Status (Most current) and Tobacco Use (All prior to encounter date) This section includes the most current, and the historical, smoking and tobacco- related health factors from the [place] facility where the Encounter took place. Current Smoking Status This section includes the most current smoking, or tobacco-related health factor, from the [place] facility where the Encounter took place. Date/Time Current Smoking Status Comment Facil ity Jan 29, 2023 09:44 AM VA-TOBACCO FOR[facility] USER [facility] [place] [facility] Tobacco Use History This section includes a history of the smoking, or tobacco-related health factors, that were collected on or before the date of the Encounter. The data comes from the [place] facility where the Encounter took place. Date/Time Smoking Status/Tobacco Use Comment F acility Jan 29, 2023 09:44 AM VA-TOBACCO QUIT 15 YRS OR MORE [facility] [place] [facility] Dec 13, 2021 11:25 AM VA-TOBACCO FORMER USER [facility] [place] [facility] Dec 13, 2021 11:25 AM VA-TOBACCO QUIT 15 YRS OR MORE [facility] [place] [facility] Jan 02, 2021 02:07 PM VA-TOBACCO FORMER USER [facility] [place] [facility] Jan 02, 2021 02:07 PM VA-TOBACCO QUIT 15 YRS OR MORE [facility] [place] [facility] Feb 01, 2020 08:30 AM VA-TOBACCO FORMER USER [facility] [place] [facility] Feb 01, 2020 08:30 AM VA-TOBACCO QUIT 15 YRS OR MORE [facility] [place] [facility] Nov 16, 2018 02:39 PM VA-TOBACCO FORMER USER [facility] [place] [facility] Nov 16, 2018 02:39 PM VA-TOBACCO QUIT 15 YRS OR MORE [facility] [place] [facility] Nov 06, 2017 02:22 PM [facility] Nov 06, 2017 02:22 PM VA-TOBACCO QUIT 15 YRS OR MORE [facility] Jan 07, 2017 09:30 AM LIFETIME NON-[facility]BACCO [facility] Jan 08, 2016 09:06 AM QUIT TOBACCO USE > 7 YEARS AGO [facility] Oct 10, 2014 11:16 AM QUIT TOBACCO USE > 7 YEARS AGO . [facility] Advance Directives: All historical and current Section Date Range: From patient's date of to the date document was created. This section includes ALL of a patient's completed or amended [place] Advance and Rescinded Directives. The entries below indicate that a directive exists for the patient, but an actual copy is not included with this document. The data comes from all [place] facilities. Date Advance Directives Provider Source Dec 02, 2019 ADVANCE DIRECTIVE LI ZHAO [facility] Encounter Notes: All associated encounter notes This section contains the clinical notes associated to the Encounter. Date/Time Encounter Note(s) Provider Source Apr 16, 2023 12:00 AM NONVA CONSULT: LOCAL TITLE: COMMUNITY CARE-CONSULT RESULT NOTE STANDARD TITLE: NONVA CONSULT DATE OF NOTE: APR 16, 2023 ENTRY DATE: APR 30, 2023@09:56:45 AUTHOR: MARC HAGER EXP COSIGNER: URGENCY: STATUS: COMPLETED VistA Imaging - Scanned Document SCANNED DOCUMENT SIGNATURE NOT REQUIRED Electronically Filed: 04/30/2023 by: MARC HAGER MOOSE HUNTER MARC HAGER [facility]
--- OUTSIDE RECORDS SUMMARY | 2024-03-02 08:46 | XMS_ITS ---
Author Name [facility] [facility] [place] [facility] [place] Address [address] [place] [address] Care Team Providers Care Spice Cleaner Name Role Phone DALLIN LUCERO Primary Care [...] PART A Mar 16, 2010 PART A [id number] LOWELL FRANK JR PATIENT MEDICARE (WNR) MEDICARE (M) PART A Mar 16, 2010 PART A [id number] [phone] LOWELL FRANK JR PATIENT MEDICARE (WNR) MEDICARE (M) PART A Mar 16, 2010 PART A [id number] LOWELL FRANK JR PATIENT Selected Encounter This section includes the information on record at [place] for the Encounter. Date/Time Encounter Type Encounter Description Reason Pro vider Source Mar 24, 2023 12:00 AM Outpatient Encounter COMMUNITY CARE CONSULT IHE Encounter Template Text not used by [place] Plan of Treatment: Future Appointments (+ 6 months) and Future Tests (+/- 45 days) The Plan of Treatment section includes future care activities for the [facility] [place] [facility]. This section includes future appointments and future orders which are active, pending or scheduled. Future Appointments This section includes appointments that were scheduled to occur 6 months from the date of the Encounter, up to a maximum of 20 appointments. The data comes from all [place] treatment facilities. Appointment Date/Time Appointment Type Appointme nt Facility Name Apr 02, 2023 09:00 AM [place]ATORY [place] [facility] [place] [facility] Jun 08, 2023 08:30 AM AMBULATORY - MEDICINE [facility] [place] [facility] Social History: Smoking Status (Most current) and Tobacco Use (All prior to encounter date) This section includes the most current, and the historical, smoking and tobacco- related health factors from the [place] facility where the Encounter took place. Current Smoking Status This section includes the most current smoking, or tobacco-related health factor, from the [place] facility where the Encounter took place. Date/Time Current Smoking Status Comment Facil ity Jan 29, 2023 09:44 AM VA-TOBACCO FORMER USER [place] [facility] [place] [facility] Tobacco Use History This section includes a history of the smoking, or tobacco-related health factors, that were collected on or before the date of the Encounter. The data comes from the [place] facility where the Encounter took place. Date/Time Smoking Status/Tobacco Use Comment F acility Jan 29, 2023 09:44 AM VA-TOBACCO QUIT 15 YRS OR MORE [place] [facility] [place] [facility] Dec 13, 2021 11:25 AM VA-TOBACCO FORMER USER [place] [facility] [place] [facility] [...] 01, 2020 08:30 AM VA-TOBACCO FORMER USER [place] [facility] [place] [facility] Feb 01, 2020 08:30 AM VA-TOBACCO QUIT 15 YRS OR MORE [facility] Nov 16, 2018 02:39 PM [facility] Nov 16, 2018 02:39 PM VA-TOBACCO QUIT 15 YRS OR MORE [facility] Nov 06, 2017 02:22 PM VA-TOBACCO FOR[facility]ER [facility] Nov 06, 2017 02:22 PM VA-TOBACCO QUIT 15 YRS OR MORE [facility] Jan 07, 2017 09:30 AM LIFETIME NON-TOBACCO USER [facility] Jan 08, 2016 09:06 AM QUIT TOBACCO USE > 7 YEARS AGO [facility] Oct 10, 2014 11:16 AM QUIT TOBACCO USE > 7 YEARS AGO . [facility] Advance Directives: All historical and current Section Date Range: From patient's date of to the date document was created. This section includes ALL of a patient's completed or amended [place] Advance and Rescinded Directives. The entries below indicate that a directive exists for the patient, but an actual copy is not included with this document. The data comes from all [place] facilities. Date Advance Directives Provider Source Dec 02, 2019 ADVANCE DIRECTIVE LI ZHAO [facility] Encounter Notes: All associated encounter notes This section contains the clinical notes associated to the Encounter. Date/Time Encounter Note(s) Provider Source Mar 24, 2023 12:00 AM NONVA CONSULT: LOCAL TITLE: COMMUNITY CARE-CONSULT RESULT NOTE STANDARD TITLE: NONVA CONSULT DATE OF NOTE: MAR 24, 2023 ENTRY DATE: APR 01, 2023@11:51:20 AUTHOR: MEAGAN BURKS EXP COSIGNER: URGENCY: STATUS: COMPLETED VistA Imaging - Scanned Document SCANNED DOCUMENT SIGNATURE NOT REQUIRED Electronically Filed: 04/01/2023 by: MEAGAN BURKS MEDICAL RESIDENTIAL PROGRAM MANAGER MEAGAN BURKS [facility]
--- OUTSIDE RECORDS SUMMARY | 2024-03-02 08:46 | XMS_ITS | Encounter Summary ---
Author Name [facility] [facility] [place] [facility] [place] Address [address] [place] [address] Care Team Providers Care Brake Lining Driller Name Role Phone CRISTIANO DECKER Primary Care Provider Unavail able Insurance Providers: [...] PART A Mar 16, 2010 PART A [id number] LOWELL FRANK JR PATIENT MEDICARE (WNR) MEDICARE (M) PART A Mar 16, 2010 PART A [id number] [phone] LOWELL FRANK JR PATIENT MEDICARE (WNR) MEDICARE (M) PART A Mar 16, 2010 PART A [id number] LOWELL FRANK JR PATIENT Selected Encounter This section includes the information on record at [place] for the Encounter. Date/Time Encounter Type Encounter Description Reason Provider Source May 05, 2023 02:57 PM Outpatient Encounter PRIMARY CARE/MEDICINE RAMIRO SWARTZ Didier Encounter Template Text not used by [place] Plan of Treatment: Future Appointments (+ 6 months) and Future Tests (+/- 45 days) The Plan of Treatment section includes future care activities for the [facility] [place] [facility] This section includes future appointments and future orders which are active, pending or scheduled. Future Appointments This section includes appointments that were scheduled to occur 6 months from the date of the Encounter, up to a maximum of 20 appointments. The data comes from all [place] treatment facilities. Appointment Date/Time Appointment Type Appointme nt Facility Name Jun 08, 2023 08:30 AM AMBULATORY - MEDICINE [facility] Oct 01, 2023 10:00 AM AMBULATORY MEDICINE [facility] Oct 25, 2023 11:00 AM [facility] Lab Results: +/- 30 days of the encounter This section includes the Chemistry and Hematology Lab Results on record with [place] for the patient. Radiology Reports and Pathology Reports are provided separately, in subsequent sections. Lab Results This section contains the Chemistry/Hematology Results that were resulted 30 days before or 30 daysafter the date of the Encounter. Date/Time Source Result Type Result - Unit Interpretation Reference Range Comment May 26, 2023 08:01 AM [facility] BASIC METABOLIC PANEL (fasting) Specimen Type: SERUM No comment entered. Ordering Provider: LOWELL DECKER Report Released Date/Time: Feb 06, 2023 10:56 AM Reporting Lab: [facility] [address] [facility] [address] Performing Lab: [facility] [address] [facility] [address] UREA NITROGEN 20 mg/dL 7-25 GLUCOSE 127 mg/dL H 65-100 SODIUM 138 mmol/L 135-145 POTASSIUM 4.0 mmol/L 3.5-5.0 CHLORIDE 100 mmol/L 100-110 CO2 28 meq/L 20-30 CREATININE, Serum 1.04 mg/dL 0.50-1.40 eGFR(CKD-EPI 2020) 73 mL/min >60 May 26, 2023 08:01 AM [facility] HEMOGLOBIN A1C PANEL Specimen Type: BLOOD Comment: Values obtained from A1C measurements can vary. For atypical A1C assays, a reported value of 7.0 could actually be between 6.72 and 7.28 if measured by a reference method. A reported value of 9.0 could actually be between 8.73 and 9.27. Ref: http://www.ngsp. org/CAPdata.asp Ordering Provider: LOWELL DECKER Report Released Date/Time: Feb 06, 2023 10:56 AM Reporting Lab: [facility] [address] [facility] [address] Performing Lab: [address] [address] HEMOGLOBIN A1C 6.3 H 4.0-5.6 May 26, 2023 08:01 AM [facility] LIVER FUNCTION Specimen Type: SERUM No comment entered. Ordering Provider: LOWELL DECKER Report Released Date/Time: Feb 06, 2023 10:56 AM Reporting Lab: [facility] [address] [facility] [address] Performing Lab: [address] [address] PROTEIN,TOTAL 6.8 g/dL 6.0-8.3 ALBUMIN 4.1 g/dL 3.5-5.0 ALKALINE PHOSPHATASE 61 U/L 40-150 AST 18 U/L 5-34 ALT 23 U/L BILIRUBIN, TOTAL 0.7 mg/dL 0.2-1.2 May 26, 2023 08:01 AM [facility] LIPID PANEL FASTING Specimen Type: SERUM No comment entered. Ordering Provider: LOWELL DECKER Report Released Date/Time: Feb 06, 2023 10:56 AM Reporting Lab: [facility] [address] [facility] [address] Performing Lab: [address] [address] CHOLESTEROL 163 mg/dL TRIGLYCERIDE 144 mg/dL 0-150 LDL calculated 79 mg/dL 0-129 CHOL/HDL 3.0 HDL CHOLESTEROL 55 mg/dL 40-60 Apr 30, 2023 08:22 AM [facility] VITAMIN B-1 (THIAMINE)-(QU) Specimen Type: PLASMA Comment: Vitamin supplementation within 24 hours prior to blood draw may affect the accuracy of the results. This test was developed and its analytical performance characteristics have been determined by [facility] [place], [place]. It has not been cleared or approved by the U.S. Food and Drug Administration. This assay has been validated pursuant to the CLIA regulations and is used for clinical purposes. Test Performed by [facility], [facility], [address] [place] [address] Andrés Villalpando M.D., Ph.D., Director of Laboratories , CLIA [id number] TEST PERFORMED AT: , Ordering Provider: LOWELL DECKER Report Released Date/Time: Apr 24, 2023 06:07 PM Reporting Lab: [address] [address] Performing Lab: [facility] [address] [address] VITAMIN B-1 (THIAMINE)-(Q U) 8 nmol/L 8-30 Apr 30, 2023 08:22 AM [facility] FOLATE Specimen Type: SERUM No comment entered. Ordering Provider: LOWELL DECKER Report Released Date/Time: Apr 24, 2023 06:07 PM Reporting Lab: [facility] [address] [facility] [address] Performing Lab: [facility] [address] [facility] [address] FOLATE 9.57 ng/mL >5.2 Apr 30, 2023 08:22 AM [facility] HEMOGLOBIN A1C PANEL Specimen Type: BLOOD Comment: Values obtained from A1C measurements can vary. For atypical A1C assays, a reported value of 7.0 could actually be between 6.72 and 7.28 if measured by a reference method. A reported value of 9.0 could actually be between 8.73 and 9.27. Ref: http://www.ngsp. org/CAPdata.asp Ordering Provider: LOWELL DECKER Report Released Date/Time: Apr 24, 2023 06:07 PM Reporting Lab: [facility] [address] [facility] [address] Performing Lab: [address] [address] HEMOGLOBIN A1C 6.3 H 4.0-5.6 Apr 30, 2023 08:22 AM [facility] MICROALBUMIN CREATININE RATIO PANEL Specimen Type: URINE No comment entered. Ordering Provider: LOWELL DECKER Report Released Date/Time: Apr 24, 2023 06:07 PM Reporting Lab: [facility] [address] [facility] [address] Performing Lab: [address] [address] MICROALBUMIN/ CREATININE RATIO 11.7 mg/g 0-29.9 MICROALBUMIN, QUANTITATIVE 2.2 mg/dL RR UNAVAIL CREATININE URINE 188.04 mg/dL Apr 30, 2023 08:22 AM [facility] BASIC METABOLIC PANEL (fasting) Specimen Type: SERUM No comment entered. Ordering Provider: LOWELL DECKER Report Released Date/Time: Apr 24, 2023 06:07 PM Reporting Lab: [address] [address] Performing Lab: [address] [address] UREA NITROGEN 23 mg/dL 7-25 GLUCOSE 171 mg/dL H 65-100 SODIUM 137 mmol/L 135-145 POTASSIUM 4.1 mmol/L 3.5-5.0 CHLORIDE 98 mmol/L L 100-110 CO2 27 meq/L 20-30 CREATININE, Serum 1.08 mg/dL 0.50-1.40 eGFR(CKD-EPI 2020) 70 mL/min >60 Apr 30, 2023 08:22 AM [facility] LIPID PANEL, NON FASTING Specimen Type: SERUM No comment entered. Ordering Provider: LOWELL DECKER Report Released Date/Time: Apr 24, 2023 06:07 PM Reporting Lab: [facility] [address] [facility] [address] Performing Lab: [address] [address] CHOLESTEROL 164 mg/dL TRIGLYCERIDE 117 mg/dL 0-150 LDL calculated 82 mg/dL 0-129 CHOL/HDL 2.8 HDL CHOLESTEROL 59 mg/dL 40-60 Apr 30, 2023 08:22 AM [facility] LIVER FUNCTION Specimen Type: SERUM No comment entered. Ordering Provider: LOWELL DECKER Report Released Date/Time: Apr 24, 2023 06:07 PM Reporting Lab: [address] [address] Performing Lab: [address] [address] PROTEIN,TOTAL 7.2 g/dL 6.0-8.3 ALBUMIN 4.2 g/dL 3.5-5.0 ALKALINE PHOSPHATASE 71 U/L 40-150 AST 17 U/L 5-34 ALT 25 U/L BILIRUBIN, TOTAL 0.6 mg/dL 0.2-1.2 Apr 30, 2023 08:22 AM [facility] VITAMIN B12 Specimen Type: SERUM No comment entered. Ordering Provider: LOWELL DECKER Report Released Date/Time: Apr 24, 2023 06:07 PM Reporting Lab: [address] [address] Performing Lab: [address] [address] VITAMIN B12 330 pg/mL 200-900 Apr 30, 2023 08:22 AM [facility] FERRITIN Specimen Type: SERUM No comment entered. Ordering Provider: LOWELL DECKER Report Released Date/Time: Apr 24, 2023 06:07 PM Reporting Lab: [facility] [address] [facility] [address] Performing Lab: [address] [address] FERRITIN 233 ng/mL 20-300 Apr 30, 2023 08:22 AM [facility] IRON & TIBC PANEL Specimen Type: SERUM No comment entered. Ordering Provider: LOWELL DECKER Report Released Date/Time: Apr 24, 2023 06:07 PM Reporting Lab: [address] [address] Performing Lab: [address] [address] TIBC 322 ug/dL 204-475 IRON 118 ug/dL 40-160 Transferrin Saturation 36.6 20.0-50.0 Apr 30, 2023 08:22 AM [facility] URINALYSIS Specimen Type: URINE Comment: If Glucose = >500 and Ketones are positive, please alert the Physician. Ordering Provider: LOWELL DECKER Report Released Date/Time: Apr 24, 2023 06:07 PM Reporting Lab: [address] [address] Performing Lab: [address] [address] UA COLOR Yellow Yellow UA APPEARANCE Clear Clear UA GLUCOSE 30 mg/dL Negative UA KETONES NEGATIVE mg/dL Negative UA BLOOD NEGATIVE mg/dL Negative UA PROTEIN 20 mg/dL Negative UA NITRITE NEGATIVE mg/dL Negative UA BILIRUBIN NEGATIVE mg/dL Negative UA SPECIFIC GRAVITY 1.029 H 1.016-1.02 2 UA pH 6.0 5.0-9.0 UA UROBILINOGEN 2.0 mg/dL <2.0 UA LEUKOCYTE NEGATIVE Negative Apr 30, 2023 08:22 AM [facility] CBC AND DIFF (AUTO) Specimen Type: BLOOD No comment entered. Ordering Provider: LOWELL DECKER Report Released Date/Time: Apr 24, 2023 06:07 PM Reporting Lab: [facility] [address] [facility] [address] Performing Lab: [facility] [address] [facility] [address] WBC 5.36 10*3/uL 4.50-11.00 RBC 4.43 10*6/uL 4.23-5.66 HGB 14.3 g/dL 12.8-17 HCT 41.5 39.2-50.4 MCV 93.7 fL 82-99 MCHC 34.5 g/dL 30.8-35.1 PLT 221 10*3/uL 140-360 RDW-CV 11.9 L 12.0-16.0 Griggs, Abs 0.51 10*3/uL 0.30-1.10 MCH 32.3 pg 26.2-32.6 Neut % 55.1 43.7-75.8 Lymph % 31.2 14.0-42.3 Griggs % 9.5 5.1-13.7 Eos % 3.4 0.4-6.8 [...] and tobacco- related health factors from the [place] facility where the Encounter took place. Current Smoking Status This section includes the most current smoking, or tobacco-related health factor, from the [place] facility where the Encounter took place. Date/Time Current Smoking Status Comment Supriya houston Jan 29, 2023 09:44 AM [place]-TOBACCO FORMER USER [facility] Tobacco Use History This section includes a history of the smoking, or tobacco-related health factors, that were collected on or before the date of the Encounter. The data comes from the [place] facility where the Encounter took place. Date/Time Smoking Status/Tobacco Use Comment F acility Jan 29, 2023 09:44 AM [place]-TOBACCO QUIT 15 YRS OR MORE [facility] [place] [facility] Dec 13, 2021 11:25 AM VA-TOBACCO FORMER USER [facility] [place] [facility] Dec 13, 2021 11:25 AM VA-TOBACCO QUIT 15 YRS OR MORE [facility] [place] [facility] Jan 02, 2021 02:07 PM VA-TOBACCO FORMER USER [facility] [place] [facility] Jan 02, 2021 02:07 PM VA-TOBACCO QUIT 15 YRS OR MORE [facility] [place] [facility] Feb 01, 2020 08:30 AM VA-TOBACCO FORMER USER [facility] [place] [facility] Feb 01, 2020 08:30 AM [place]-TOBACCO QUIT 15 YRS [place] MORE [place] [facility] [place] [facility] Nov 16, 2018 02:39 PM VA-TOBACCO FORMER USER [facility] [place] [facility] Nov 16, 2018 02:39 PM VA-TOBACCO QUIT 15 YRS OR MORE [facility] [place] [facility] Nov 06, 2017 02:22 PM VA-TOBACCO FORMER USER [facility] [place] [facility] Nov 06, 2017 02:22 PM VA-TOBACCO QUIT 15 YRS OR MORE [facility] [place] [facility] Jan 07, 2017 09:30 AM LIFETIME NON-TOBACCO USER [place] [facility] [place] [facility] Jan 08, 2016 09:06 AM QUIT TOBACCO USE > 7 YEARS AGO [place] [facility] [place] [facility] Oct 10, 2014 11:16 AM QUIT TOBACCO USE > 7 YEARS AGO . [place] [facility] [place] [facility] Advance Directives: All historical and current Section Date Range: From patient's date of to the date document was created. This section includes ALL of a patient's completed or amended [place] Advance and Rescinded Directives. The entries below indicate that a directive exists for the patient, but an actual copy is not included with this document. The data comes from all [place] facilities. Date Advance Directives Provider Source Dec 02, 2019 ADVANCE DIRECTIVE LI ZHAO [place] [facility] [place] [facility] Encounter Notes: All associated encounter notes This section contains the clinical notes associated to the Encounter. Date/Time Encounter Note(s) Provider Source May 06, 2023 12:10 PM ADDENDUM: LOCAL TITLE: Addendum STANDARD TITLE: ADDENDUM DATE OF NOTE: MAY 06, 2023@12:10:35 ENTRY DATE: MAY 06, 2023@12:10:36 AUTHOR: CRISTIANO DECKER EXP COSIGNER: URGENCY: STATUS: COMPLETED Please message him that his labs are fine, see him next month. /mary kate/ Cristiano Decker PA-C STAFF PHYSICIAN WASH AND GREASER Signed: 05/06/2023 12:11 Receipt Acknowledged By: 05/06/2023 13:12 /mary kate/ RAMIRO SWARTZ RN REGISTERED NURSE ========= --- Original Document --- 05/05/23 PRIMARY CARE SECURE MESSAGING: ------Original Message -------- Sent: 05/04/2023 07:40 AM ET From: CRISTIANO FRANK To: Brennen DECKER_PRIMARY CARE_[facility] Subject: General:Health Just wanted to let you know that whatever was ailing me these past few months has passed. I feel perfectly fine. thank you for all the help and care. ------Original Message -------- Sent: 05/05/2023 02:57 PM ET From: RAMIRO SWARTZ To: CRISTIANO FRANK Subject: General:Health Thank you for the update and we are glad you are feeling better! We will see you June 07 @ 0830 in Primary Care. Please have annual labs done about week prior if able. Thank you for your service, BILLY Cain - [employer] Laboratory Manager /mary kate/ RAMIRO SWARTZ RN REGISTERED NURSE Signed: 05/05/2023 14:57 CRISTIANO DECKER [facility] May 05, 2023 02:57 PM PRIMARY CARE TRISTINCHARITY Didier MESSAGING: LOCAL TITLE: PRIMARY CARE SECURE MESSAGING STANDARD TITLE: PRIMARY CARE SECURE MESSAGING DATE OF NOTE: MAY 05, 2023@14:57 ENTRY DATE: MAY 05, 2023@14:57:27 AUTHOR: RAMIRO SWARTZ EXP COSIGNER: URGENCY: STATUS: COMPLETED PRIMARY CARE SECURE MESSAGING Has ADDENDA ------Original Message -------- Sent: 05/04/2023 07:40 AM ET From: CRISTIANO FRANK To: Brennen DECKER_PRIMARY CARE_[facility] Subject: General:Health Just wanted to let you know that whatever was ailing me these past few months has passed. I feel perfectly fine. thank you for all the help and care. ------Original Message -------- Sent: 05/05/2023 02:57 PM ET From: RAMIRO SWARTZ To: CRISTIANO FRANK Subject: General:Health Thank you for the update and we are glad you are feeling better! We will see you June 07 @ 0830 in Primary Care. Please have annual labs done about week prior if able. Thank you for your service, BILLY Cain - [employer] Laboratory Manager /mary kate/ RAMIRO SWARTZ RN REGISTERED NURSE Signed: 05/05/2023 14:57 05/06/2023 ADDENDUM STATUS: COMPLETED Please message him that his labs are fine, see him next month. /mary kate/ Cristiano Decker PA-C STAFF PHYSICIAN WASH AND GREASER Signed: 05/06/2023 12:11 Receipt Acknowledged By: * AWAITING SIGNATURE * RAMIRO SWARTZ LAUREN M [facility]
--- OUTSIDE RECORDS SUMMARY | 2024-03-02 08:46 | XMS_ITS ---
Author Name [facility] [facility] [place] [facility] [place] Address [address] [place] [address] Care Team Providers Care Laster Hand Name Role Phone CRISTINAO DECKER Primary Care Provider Unavail able Insurance [...] PART A Mar 16, 2010 PART A [id number] [phone] LOWELL KIM JR PATIENT MEDICARE (WNR) MEDICARE (M) PART A Mar 16, 2010 PART A [id number] [phone] LOEWLL KIM JR PATIENT MEDICARE (WNR) MEDICARE (M) PART A Mar 16, 2010 PART A [id number] LOWELL KIM JR PATIENT Selected Encounter This section includes the information on record at [place] for the Encounter. Date/Time Encounter Type Encounter Description Reason Provider Source Jun 24, 2023 08:06 AM Outpatient Encounter PRIMARY CARE/MEDICINE RAMIRO SWARTZ Encounter Template Text not used by [place] Plan of Treatment: Future Appointments (+ 6 months) and Future Tests (+/- 45 days) The Plan of Treatment section includes future care activities for the patient from all [place] [facility]. This section includes future appointments and future [...] 01, 2023 10:00 AM AMBULATORY - MEDICINE [facility] Oct 25, 2023 11:00 AM AMBULATORY MEDICINE [facility] Lab Results: +/- 30 days of [...] Range Comment May 26, 2023 08:01 AM [facility] BASIC METABOLIC PANEL (fasting) Specimen Type: SERUM No comment entered. Ordering Provider: TANMAY DECKER Report Released Date/Time: Feb 06, 2023 10:56 AM Reporting Lab: [facility] [address] [facility] [address] Performing Lab: [address] [address] UREA NITROGEN 20 mg/dL 7-25 GLUCOSE 127 mg/dL H 65-100 SODIUM 138 mmol/L 135-145 POTASSIUM 4.0 mmol/L 3.5-5.0 CHLORIDE 100 mmol/L 100-110 CO2 28 meq/L 20-30 CREATININE, Serum 1.04 mg/dL 0.50-1.40 eGFR(CKD-EPI 2020) 73 mL/min >60 May 26, 2023 08:01 AM [facility] HEMOGLOBIN A1C PANEL Specimen Type: BLOOD Comment: Values obtained from A1C measurements can vary. For atypical A1C assays, a reported value of 7.0 could actually be between 6.72 and 7.28 if measured by a reference method. A reported value of 9.0 could actually be between 8.73 and 9.27. Ref: http://www.ngs p.org/CAPdata. asp Ordering Provider: TANMAY DECKER F Report Released Date/Time: Feb 06, 2023 10:56 AM Reporting Lab: [address] [address] Performing Lab: [address] [address] HEMOGLOBIN A1C 6.3 H 4.0-5.6 May 26, 2023 08:01 AM [facility] LIVER FUNCTION Specimen Type: SERUM No comment entered. Ordering Provider: TANMAY DECKER F Report Released Date/Time: Feb 06, 2023 10:56 AM Reporting Lab: [address] [address] Performing Lab: [address] [address] PROTEIN,TOTAL 6.8 g/dL 6.0-8.3 ALBUMIN 4.1 g/dL 3.5-5.0 ALKALINE PHOSPHATASE 61 U/L 40-150 AST 18 U/L 5-34 ALT 23 U/L BILIRUBIN, TOTAL 0.7 mg/dL 0.2-1.2 May 26, 2023 08:01 AM [facility] LIPID PANEL FASTING Specimen Type: SERUM No comment entered. Ordering Provider: TANMAY DEKCER F Report Released Date/Time: Feb 06, 2023 10:56 AM Reporting Lab: [address] [address] Performing Lab: [address] [address] CHOLESTEROL 163 mg/dL TRIGLYCERIDE 144 mg/dL 0-150 LDL calculated 79 mg/dL 0-129 CHOL/HDL 3.0 HDL CHOLESTEROL 55 mg/dL 40-60 Social History: Smoking Status (Most current) and [...] place. Date/Time Current Smoking Status Comment Supriya ity Jan 29, 2023 09:44 AM [place]TOBAC[place] FOR[place] US[place] [facility] [place] [facility] Tobacco Use History This section includes a history of the smoking, or tobacco-related health factors, that were collected on or before the date of the Encounter. The data comes from the [place] facility where the Encounter took place. Date/Time Smoking Status/Tobacco Use Comment Kavita baxter Jan 29, 2023 09:44 AM VA-TOBACCO QUIT 15 YRS OR MORE [facility] [place] [facility] Dec 13, 2021 11:25 AM VA-TOBACCO FORMER USER [place] [facility] [place] [facility] Dec 13, 2021 11:25 AM VA-TOBACCO QUIT 15 YRS OR MORE [place] [facility] [place] [facility] Jan 02, 2021 02:07 PM VA-TOBACCO FORMER USER [place] [facility] [place] [facility] Jan 02, 2021 02:07 PM VA-TOBACCO QUIT 15 YRS OR MORE [place] [facility] [place] [facility] Feb 01, 2020 08:30 AM VA-TOBACCO FORMER USER [place] [facility] [place] [facility] Feb 01, 2020 08:30 AM VA-TOBACCO QUIT 15 YRS OR MORE [place] [facility] [place] [facility] Nov 16, 2018 02:39 PM VA-TOBACCO FORMER USER [facility] [place] [facility] Nov 16, 2018 02:39 PM VA-TOBACCO QUIT 15 YRS OR MORE [facility] [place] [facility] Nov 06, 2017 02:22 PM VA-TOBACCO FORMER USER [facility] [place] [facility] Nov 06, 2017 02:22 PM VA-TOBACCO QUIT 15 YRS OR MORE [facility] [place] [facility] Jan 07, 2017 09:30 AM LIFETIME NON-TOBACCO USER [facility] [place] [facility] Jan 08, 2016 09:06 AM QUIT TOBACCO USE > 7 YEARS AGO [facility] [place] [facility] Oct 10, 2014 11:16 AM QUIT TOBACCO USE > 7 YEARS AGO . [facility] Advance Directives: All historical and current Section Date Range: From patient's date of to the date document was created. This section includes ALL of a patient's completed or amended [place] Advance and Rescinded Directives. The entries below indicate that a directive exists for the patient, but an actual copy is not included with this document. The data comes from all [place] facilities. Date Advance Directives Provider Source Dec 02, 2019 ADVANCE DIRECTIVE LI ZHAO [facility] Encounter Notes: All associated encounter notes This section contains the clinical notes associated to the Encounter. Date/Time Encounter Note(s) Provider Source Jun 24, 2023 08:06 AM PRIMARY CARE [email or web address] MESSAGING: [facility] TITLE: PRIMARY CARE SECURE MESSAGING STANDARD TITLE: PRIMARY CARE SECURE MESSAGING DATE OF NOTE: JUN 24, 2023@08:06 ENTRY DATE: JUN 24, 2023@09:06:06 AUTHOR: RAMIRO SWARTZ EXP COSIGNER: URGENCY: STATUS: COMPLETED ------Original Message ------- Sent: 06/24/2023 08:37 AM ET From: CRISTIANO KIM To: Brennen DECKER_PRIMARY CARE_[facility] Subject: Medication:Fluocinonide .05 Good morning! Could you please add Fluocinonide.05 back on my script list. Seems to have dropped off the list Thanks Pradip Kim /mary kate/ RAMIRO SWARTZ RN REGISTERED NURSE Signed: 06/24/2023 09:06 Receipt Acknowledged By: 06/24/2023 09:41 /mary kate/ Cristiano Decker PA-C STAFF PHYSICIAN MIGRATORY FARM HAND RAMIRO SWARTZ [facility]
--- OUTSIDE RECORDS SUMMARY | 2024-03-02 08:46 | XMS_ITS ---
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 Date/Time Encounter Type Encounter Description Reason Pro vider Source Apr 02, 2023 12:00 AM Outpatient Encounter COMMUNITY CARE CONSULT IHE Encounter Template Text not used by CT Plan of Treatment: Future Appointments (+ 6 months) and Future Tests (+/- 45 days) The Plan of Treatment section includes future care activities for the [facility] This section includes future appointments and future orders which are active, pending or scheduled. Future Appointments This section includes appointments that were scheduled to occur 6 months from the date of the Encounter, up to a maximum of 20 appointments. The data comes from all CT treatment facilities. Appointment Date/Time Appointment Type Appointme nt Facility Name Jun 08, 2023 08:30 AM AMBULATORY - [facility]IC[facility] Oct 01, 2023 10:00 AM [facility]BULATORY [facility] Lab Results: +/- 30 days of the encounter This section includes the Chemistry and Hematology Lab Results on record with CT for the patient. Radiology Reports and Pathology Reports are provided separately, in subsequent sections. Lab Results This section contains the Chemistry/Hematology Results that were resulted 30 days before or 30 daysafter the date of the Encounter. Date/Time Source Result Type Result - Unit Interpretation Reference Range Comment Apr 30, 2023 08:22 AM [facility] VITAMIN B-1 (THIAMINE)-(QU) Specimen Type: PLASMA Comment: Vitamin supplementation within 24 hours prior to blood draw may affect the accuracy of the results. This test was developed and its analytical performance characteristics have been determined by [facility] [place], [place]. It has not been cleared or approved by the U.S. Food and Drug Administration. This assay has been validated pursuant to the CLIA regulations and is used for clinical purposes. Test Performed by [facility] [place], [employer] [facility], [address] [place] [address] Andrés Villalpando M.D., Ph.D., Director of Laboratories , CLIA [id number] TEST PERFORMED AT: , Ordering Provider: LOWELL LUCERO Report Released Date/Time: Apr 24, 2023 06:07 PM Reporting Lab: [facility] [address] [facility] [address] Performing Lab: [address] [place], [address] [place] [address] VITAMIN B-1 (THIAMINE)-(Q U) 8 nmol/L 8-30 Apr 30, 2023 08:22 AM [facility] FOLATE Specimen Type: SERUM No comment entered. Ordering Provider: LOWELL LUCERO Report Released Date/Time: Apr 24, 2023 06:07 PM Reporting Lab: [facility] [address] [facility] [address] Performing Lab: [facility] [address] [facility] [address] FOLATE 9.57 ng/mL >5.2 Apr 30, 2023 08:22 AM [facility] HEMOGLOBIN A1C PANEL Specimen Type: BLOOD [...] Apr 24, 2023 06:07 PM Reporting Lab: [address] [address] Performing Lab: [address] [address] HEMOGLOBIN A1C 6.3 H 4.0-5.6 Apr 30, 2023 08:22 AM [facility] LIVER FUNCTION Specimen Type: SERUM No comment entered. Ordering Provider: LOWELL LUCERO Report Released Date/Time: Apr 24, 2023 06:07 PM Reporting Lab: [address] [address] Performing Lab: [address] [address] PROTEIN,TOTAL 7.2 g/dL 6.0-8.3 ALBUMIN 4.2 g/dL 3.5-5.0 ALKALINE PHOSPHATASE 71 U/L 40-150 AST 17 U/L 5-34 ALT 25 U/L BILIRUBIN, TOTAL 0.6 mg/dL 0.2-1.2 Apr 30, 2023 08:22 AM [facility] MICROALBUMIN CREATININE RATIO PANEL Specimen Type: URINE No comment entered. Ordering Provider: LOWELL LUCERO Report Released Date/Time: Apr 24, 2023 06:07 PM Reporting Lab: [facility] [address] [facility] [address] Performing Lab: [address] [address] MICROALBUMIN/ CREATININE RATIO 11.7 mg/g 0-29.9 MICROALBUMIN, QUANTITATIVE 2.2 mg/dL RR UNAVAIL CREATININE URINE 188.04 mg/dL Apr 30, 2023 08:22 AM [facility] BASIC METABOLIC PANEL (fasting) Specimen Type: SERUM No comment entered. Ordering Provider: LOWELL LUCERO Report Released Date/Time: Apr 24, 2023 06:07 PM Reporting Lab: [address] [address] Performing Lab: [address] [address] UREA NITROGEN 23 mg/dL 7-25 GLUCOSE 171 mg/dL H 65-100 SODIUM 137 mmol/L 135-145 POTASSIUM 4.1 mmol/L 3.5-5.0 CHLORIDE 98 mmol/L L 100-110 CO2 27 meq/L 20-30 CREATININE, Serum 1.08 mg/dL 0.50-1.40 eGFR(CKD-EPI 2020) 70 mL/min >60 Apr 30, 2023 08:22 AM [facility] LIPID PANEL, NON FASTING Specimen Type: SERUM No comment entered. Ordering Provider: LOWELL LUCERO Report Released Date/Time: Apr 24, 2023 06:07 PM Reporting Lab: [address] [address] Performing Lab: [facility] [address] [facility] [address] CHOLESTEROL 164 mg/dL TRIGLYCERIDE 117 mg/dL 0-150 LDL calculated 82 mg/dL 0-129 CHOL/HDL 2.8 HDL CHOLESTEROL 59 mg/dL 40-60 Apr 30, 2023 08:22 AM [facility] [place] [facility] VITAMIN B12 Specimen Type: SERUM No comment entered. Ordering Provider: LOWELL LUCERO Report Released Date/Time: Apr 24, 2023 06:07 PM Reporting Lab: [facility] [place] [facility] [address] [facility] [address] Performing Lab: [facility] [address] [address] VITAMIN B12 330 pg/mL 200-900 Apr 30, 2023 08:22 AM [facility] IRON & TIBC PANEL Specimen Type: SERUM No comment entered. Ordering Provider: LOWELL LUCERO Report Released Date/Time: Apr 24, 2023 06:07 PM Reporting Lab: [facility] [place] [facility] [address] [facility] [address] Performing Lab: [facility] [address] [facility] [address] TIBC 322 ug/dL 204-475 IRON 118 ug/dL 40-160 Transferrin Saturation 36.6 20.0-50.0 Apr 30, 2023 08:22 AM [facility] FERRITIN Specimen Type: SERUM No comment entered. Ordering Provider: LOWELL LUCERO Report Released Date/Time: Apr 24, 2023 06:07 PM Reporting Lab: [facility] [place] [facility] [address] [facility] [address] Performing Lab: [facility] [address] [address] FERRITIN 233 ng/mL 20-300 Apr 30, 2023 08:22 [address] [facility] URINALYSIS Specimen Type: URINE Comment: If Glucose = >500 and Ketones are positive, please alert the Physician. Ordering Provider: LOWELL LUCERO Report Released Date/Time: Apr 24, 2023 06:07 PM Reporting Lab: [address] [address] Performing Lab: [address] [address] UA COLOR Yellow Yellow UA APPEARANCE Clear Clear UA GLUCOSE 30 mg/dL Negative UA KETONES NEGATIVE mg/dL Negative UA BLOOD NEGATIVE mg/dL Negative UA PROTEIN 20 mg/dL Negative UA NITRITE NEGATIVE mg/dL Negative UA BILIRUBIN NEGATIVE mg/dL Negative UA SPECIFIC GRAVITY 1.029 H 1.016-1.02 2 UA pH 6.0 5.0-9.0 UA UROBILINOGEN 2.0 mg/dL <2.0 UA LEUKOCYTE NEGATIVE Negative Apr 30, 2023 08:22 AM [facility] CBC AND DIFF (AUTO) Specimen Type: BLOOD No comment entered. Ordering Provider: LOWELL LUCERO Report Released Date/Time: Apr 24, 2023 06:07 PM Reporting Lab: [address] [address] Performing Lab: [address] [address] WBC 5.36 10*3/uL 4.50-11.00 RBC 4.43 10*6/uL 4.23-5.66 HGB 14.3 g/dL 12.8-17 HCT 41.5 39.2-50.4 MCV 93.7 fL 82-99 MCHC 34.5 g/dL 30.8-35.1 PLT 221 10*3/uL 140-360 RDW-CV 11.9 L 12.0-16.0 [place], Abs 0.51 10*3/uL 0.30-1.10 MCH 32.3 pg 26.2-32.6 Neut % 55.1 43.7-75.8 Lymph % 31.2 14.0-42.3 [place] % 9.5 5.1-13.7 Eos % 3.4 0.4-6.8 [...] and tobacco- related health factors from the CT facility where the Encounter took place. Current Smoking Status This section includes the most current smoking, or tobacco-related health factor, from the CT facility where the Encounter took place. Date/Time Current Smoking Status Comment Facil ity Jan 29, 2023 09:44 AM VA-TOBACCO FORMER USER [facility] [place] [facility] Tobacco Use History This section includes a history of the smoking, or tobacco-related health factors, that were collected on or before the date of the Encounter. The data comes from the CT facility where the Encounter took place. Date/Time Smoking Status/Tobacco Use Comment F acility Jan 29, 2023 09:44 AM VA-TOBACCO QUIT 15 YRS OR MORE [facility] [place] [facility] Dec 13, 2021 11:25 AM VA-TOBACCO FORMER USER [facility] [place] [facility] Dec 13, 2021 11:25 AM VA-TOBACCO QUIT 15 YRS OR MORE [facility] [place] [facility] Jan 02, 2021 02:07 PM VA-TOBACCO FORMER USER [facility] [place] [facility] Jan 02, 2021 02:07 PM VA-TOBACCO QUIT 15 YRS OR MORE [facility] [place] [facility] Feb 01, 2020 08:30 AM VA-TOBACCO FORMER USER [facility] [place] [facility] Feb 01, 2020 08:30 AM VA-TOBACCO QUIT 15 YRS OR MORE [facility] [place] [facility] Nov 16, 2018 02:39 PM VA-TOBACCO FORMER USER [facility] [place] [facility] Nov 16, 2018 02:39 PM VA-TOBACCO QUIT 15 YRS OR MORE [facility] [place] [facility] Nov 06, 2017 02:22 PM [facility]BACCO [facility] Nov 06, 2017 02:22 PM VA-TOBACCO QUIT 15 YRS OR MORE [facility] Jan 07, 2017 09:30 AM LIFETIME NON-TOBACCO USER [facility] Jan 08, 2016 09:06 AM QUIT TOBACCO USE > 7 YEARS AGO [facility] Oct 10, 2014 11:16 AM QUIT TOBACCO USE > 7 YEARS AGO . [facility] Advance Directives: All historical and current Section Date Range: From patient's date of to the date document was created. This section includes ALL of a patient's completed or amended CT Advance and Rescinded Directives. The entries below indicate that a directive exists for the patient, but an actual copy is not included with this document. The data comes from all CT facilities. Date Advance Directives Provider Source Dec 02, 2019 ADVANCE DIRECTIVE LI ZHAO [facility] Encounter Notes: All associated encounter notes This section contains the clinical notes associated to the Encounter. Date/Time Encounter Note(s) Provider Source Apr 02, 2023 12:00 AM NONVA CONSULT: LOCAL TITLE: COMMUNITY CARE-CONSULT RESULT NOTE STANDARD TITLE: NONVA CONSULT DATE OF NOTE: APR 02, 2023 ENTRY DATE: APR 13, 2023@14:35:46 AUTHOR: BISI MCKEON EXP COSIGNER: URGENCY: STATUS: COMPLETED VistA Imaging - Scanned Document SCANNED DOCUMENT SIGNATURE NOT REQUIRED Electronically Filed: 04/13/2023 by: BISI BRAMBILA [facility]
--- OUTSIDE RECORDS SUMMARY | 2024-03-02 08:46 | XMS_ITS ---
Author Name [facility] [facility] [place] Address [address] [place] [address] Care Team Providers Care Inbound Call Center Representative Name Role Phone DALLIN LUCERO Primary Care [...] PART A Mar 16, 2010 PART A [id number] LOWELL FRANK JR PATIENT MEDICARE (WNR) MEDICARE (M) PART A Mar 16, 2010 PART A [id number] [phone] LOWELL FRANK JR PATIENT MEDICARE (WNR) MEDICARE (M) PART A Mar 16, 2010 PART A [id number] [phone] LOWELL FRANK JR PATIENT Selected Encounter This section includes the information on record at [place] for the Encounter. Date/Time Encounter Type Encounter Description Reason Provider Source Mar 24, 2023 09:30 AM OFFICE O/P EST MOD 30 MIN DERMATOLOGY ICD-10-CM L40.9 Psoriasis, unspecified DANITZA MEDINA IHE Encounter Template Text not used by [place] Assessments - Encounter Diagnoses This section includes the primary and secondary diagnoses documented for the Encounter. Date/Time Primary/Secondary Diagnosis Diagnosis Name Provider Source Mar 24, 2023 12:51 PM PRIMARY Psoriasis, unspecified DANITZA MEDINA [facility] Mar 24, 2023 12:51 PM SECONDARY Actinic keratosis DANITZA MEDINA [facility] Mar 24, 2023 12:51 PM SECONDARY Other seborrheic keratosis DANITZA MEDINA JES [facility] Mar 24, 2023 12:51 PM SECONDARY Xerosis cutis DANITZA MEDINA [facility] Plan of Treatment: Future Appointments (+ 6 months) and Future Tests (+/- 45 days) The Plan of Treatment section includes future care activities for the patient from all [place] [facility]. This section includes future appointments and future orders which are active, pending or scheduled. Future Appointments This section includes appointments that were scheduled to occur 6 months from the date of the Encounter, up to a maximum of 20 appointments. The data comes from all [place] treatment facilities. Appointment Date/Time Appointment Type Appointme nt Facility Name Apr 02, 2023 09:00 AM AMBULATORY - MEDICINE [facility] Jun 08, 2023 08:30 AM AMBULATORY - MEDICINE [facility] Social History: Smoking Status (Most current) and Tobacco Use (All prior to encounter date) This section includes the most current, and the historical, smoking and tobacco- related health factors from the [place] facility where the Encounter took place. Current Smoking Status This section includes the most current smoking, or tobacco-related health factor, from the [place] facility where the Encounter took place. Date/Time Current Smoking Status Comment Supriya houston Jan 29, 2023 09:44 AM VA-TOBACCO FORMER USER [facility] Tobacco Use History This section includes a history of the smoking, or tobacco-related health factors, that were collected on or before the date of the Encounter. The data comes from the [place] facility where the Encounter took place. Date/Time Smoking Status/Tobacco Use Comment F acility Jan 29, 2023 09:44 AM VA-TOBACCO QUIT 15 YRS OR MORE [facility] [place] [facility] Dec 13, 2021 11:25 AM VA-TOBACCO FORMER USER [facility] [place] [facility] Dec 13, 2021 11:25 AM VA-TOBACCO QUIT 15 YRS OR MORE [facility] [place] [facility] Jan 02, 2021 02:07 PM VA-TOBACCO FORMER USER [facility] [place] [facility] Jan 02, 2021 02:07 PM VA-TOBACCO QUIT 15 YRS OR MORE [facility] [place] [facility] Feb 01, 2020 08:30 AM VA-TOBACCO FORMER USER [facility] [place] [facility] Feb 01, 2020 08:30 AM VA-TOBACCO QUIT 15 YRS OR MORE [facility] [place] [facility] Nov 16, 2018 02:39 PM VA-TOBACCO FORMER USER [facility] [place] [facility] Nov 16, 2018 02:39 PM VA-TOBACCO QUIT 15 YRS OR MORE [facility] [place] [facility] Nov 06, 2017 02:22 PM VA-TOBACCO FORMER USER [facility] [place] [facility] Nov 06, 2017 02:22 PM VA-TOBACCO QUIT 15 YRS OR MORE [facility] [place] [facility] Jan 07, 2017 09:30 AM LIFETIME NON-TOBACCO USER [facility] [place] [facility] Jan 08, 2016 09:06 AM QUIT TOBACCO USE > 7 YEARS AGO [facility] [place] [facility] Oct 10, 2014 11:16 AM QUIT TOBACCO USE > 7 YEARS AGO . [facility] [place] [facility] Advance Directives: All historical and current Section Date Range: From patient's date of to the date document was created. This section includes ALL of a patient's completed or amended [facility] Advance and Rescinded Directives. The entries below indicate that a directive exists for the patient, but an actual copy is not included with this document. The data comes from all [place] facilities. Date Advance Directives Provider Source Dec 02, 2019 ADVANCE DIRECTIVE LI ZHAO [facility] [place] [facility] Encounter Notes: All associated encounter notes This section contains the clinical notes associated to the Encounter. Date/Time Encounter Note(s) Provider Source Mar 24, 2023 09:52 AM DERMATOLOGY OUTPATIENT NOTE: LOCAL TITLE: DERMATOLOGY CLINIC NOTE STANDARD TITLE: DERMATOLOGY OUTPATIENT NOTE DATE OF NOTE: MAR 24, 2023@09:52 ENTRY DATE: MAR 24, 2023@09:53:03 AUTHOR: NINA MEDINA EXP COSIGNER: URGENCY: STATUS: COMPLETED MAR 24, 2023 MONIKADALLIN Karlene DELEON Mar 78 PATIENT PHONE - Patient here for FOLLOW UP CHIEF COMPLAINT: PsO HPI: Reviewed records from last Dermatology visit: 12/09/21 F2F and 11/26/22 TeleDerm - he was started on ketoconazole 2% shampoo TID PRN and tacrolimus 0.03% ointment BID to eyelids and postauriuclar folds for Lj Derm/PsO. He reports some improvement in skin condition. denies any new/changing/bleeding/non-hea ling lesions. Reviewed in [place]: 01/07/22 [facility]; 'lumbar spine, bilat hips and bilat hand xrays reveal OA, no evidence of PsA. No dactylitis on exam, no nail pitting, normal imflammatory markers. Advised PT at [place]. Continue topicals.' REVIEW OF SYSTEMS: Constitutional-neg Skin/Hair/Nails-see HPI DermHx: -Denies h/o MM or NMSC -PsO, reports onset ~2013 Family Hx: Reports father with h/o MM PastMedHx: Reviewed. History of Sun Exposure/Sunburns: +Yes, blisterin chua in the past. Denies use of tanning beds. Active Outpatient Medications (including Supplies): Active Outpatient Medications Status 1) ACYCLOVIR [...] TAB TAKE ONE TABLET BY MOUTH ACTIVE (S) ONCE DAILY FOR DIABETES 11) SIMVASTATIN 80MG TAB TAKE ONE-HALF TABLET BY MOUTH AT ACTIVE BEDTIME FOR CHOLESTEROL 12) TACROLIMUS 0.03% TOP OINT APPLY THIN LAYER TOPICALLY ACTIVE TWICE DAILY NEEDED 13) TAMSULOSIN HCL 0.4MG CAP TAKE ONE CAPSULE BY MOUTH AT ACTIVE (S) BEDTIME PHYSICAL EXAM: Seymour Skintype II General-AxOx3, NAD, pleasant, breathing unlabored, speech clear Cutaneous examination, as permitted by the patient, including scalp, face, eyes, ears, neck, chest, back, abdomen, arms, hands, fingers, legs, feet, toes Pertinent findings per below: -L upper abd with a 1cm thin erythematous gritty papules -Generalized xerosis -bilateral lower legs scattered with approx 5-10 psoriasiform hyperpipgmented well-demarcated papules with micaceous scale -trace pink hue around upper eyelids with trace fine scale -bilat infraorbital area with pinkish hue and overlying fine silver scale -no noted psoriatic nail changes Diagnosis/Plan: #Psoriasis -Type: plaque -Currently with 1% BSA -Counseled regarding expectations: psoriasis is a chronic condition with periods of remissions and flares. Flares can be triggered by stress, infections (group A strep), certain medications and alcohol. -Discussed prescription treatment options, including topical corticosteroids, NBUVB, and systemic treatments. -CONTINUE tacrolimus 0.1% cream as prescribed. Side effects: burning, pruritis. Avoid application to damp skin. May cause flushing after ingestion of alcohol. -CONTINUE clobetasol or fluocinonide as prescribed. -Side effects including but not limited to thinning of the skin (atrophy), lightening (hypopigmentation), increased appearance of superficial blood vessels (telangiectasias) and stretch monte discussed. -Advised to contact office is psoriasis worsens or fails to improve despite several months of treatment #Actinic Keratosis: - educated on relationship to squamous cell carcinoma. -Treatment options discussed. -Liquid nitrogen cryotherapy performed as a destructive method. -Liquid nitrogen (2 cycles x 5-8sec) x #1 lesions performed. -Side effects including but not limited to redness, crusting, swelling, blistering, hypopigmentation and scarring discussed. -Photoprotection discussed. #Seborrheic keratoses -Benign, reassured. #Xerosis -Advised liberal emollients RTC 1 yr, sooner PRN * educated to RTC andrew if any new, changing, symptomatic lesions. * Education on sun protection and avoidance strategies was provided. * Differential diagnosis, prescription options and risks/benefits were discussed with the patient, who consented to treatment plan. * consented to photography for documentation if indicated. * A dermatoscope was used during the exam. * NUB = Neoplasm of Uncertain Behavior of Skin Review of medical records = 7 min Time spent with patient including obtaining history, physical exam, shared decision making, procedures and counseling = 25 min Post visit documentation to include but not limited to medication and lab ordering = 3 min Total time = 35 min Medication Reconciliation: Outpatient: Has the patient been taking medications as documented in the EMLR? YES: The patient has been taking medications as documented in the EMLR. Essential Medication List for Review used to complete this medication reconciliation. INCLUDED IN THIS LIST: Alphabetical list of active outpatient prescriptions dispensed from this [facility] (local) and dispensed from another [place] or [facility] facility (remote) as well as [...] whether with a VA or non-VA provider. JLV Link Data on this list may not be complete. Please check JLV. Allergies/ADRs (Tool #5) FACILITY ALLERGY/ADR -------- No Remote Allergy/ADR Data available for this patient [facility] [place] Med Recon NoGlossary (Tool #1) INCLUDED IN THIS LIST: Alphabetical list of active outpatient prescriptions dispensed from this [place] (local) and dispensed from another [place] or [facility] facility (remote) as well as inpatient orders (local pending and active), local clinic medications, locally documented non-VA medications, and local prescriptions that have or been discontinued in the past 90 days. Non-VA Meds Last Documented On: Nov 06, 2017 NOTE The display of VA prescriptions dispensed from another VA or [facility] facility (remote) is limited to active outpatient prescription entries matched to National Drug File at the originating site and may not include some items such as investigational drugs, compounds, etc. NOT INCLUDED IN THIS LIST: Medications self-entered by the patient into personal health records (i.e. CDEL) are NOT included in this list. Non-VA medications documented outside this [place], remote inpatient orders (regardless of status) and remote clinic medications are NOT included in this list. The patient and provider must always discuss medications the patient is taking, regardless of where the medication was dispensed or obtained. OUTPT ACYCLOVIR 400MG TAB (Status = Active) TAKE ONE TABLET BY MOUTH THREE TIMES DAILY NEEDED Rx# [id number] Last Released: 02/10/23 Qty/Days Supply: 270 Rx Expiration Date: 02/07/24 Refills Remainin OUTPT CETIRIZINE HCL 10MG TAB (Status = Active) TAKE ONE TABLET BY MOUTH ONCE DAILY NEEDED FOR ALLERGIES Rx# [id number] Last Released: 03/10/23 Qty/Days Supply: 90 Rx Expiration Date: 10/11/23 Refills Remain[facility] OUTPT CHOLECALCIF 25MCG (D3-1,000UNIT) TAB (Status = Active) TAKE ONE TABLET BY MOUTH ONCE DAILY FOR VITAMIN SUPPLEMENTATION Rx# [id number] Last Released: 03/20/23 Qty/Days Supply: Rx Expiration Date: 07/08/23 Refills [facility]ain[facility] OUTPT FAMOTIDINE 20MG TAB (Status = Active) TAKE ONE TABLET BY MOUTH TWICE DAILY NEEDED FOR STOMACH ACID Rx# [id number] Last Released: 01/10/23 Qty/Days Supply: 180 Rx Expiration Date: 07/08/23 Refills Remainin OUTPT FLUTICASONE PROP 50MCG 120D NASAL INHL (Status = Active) INSTILL 1 SPRAY INTO EACH NOSTRIL TWICE DAILY NEEDED Rx# [id number] Last Released: 12/17/22 Qty/Days Supply: Rx Expiration Date: 10/11/23 Refills Remainin Indication: FOR NASAL IRRITATION/INFLAMMATION OUTPT HYDROCHLOROTHIAZIDE 25MG TAB (Status = Discontinued) TAKE ONE TABLET BY MOUTH EVERY MORNING TO PREVENT FLUID/CONTROL BLOOD PRESSURE Rx# [id number] Last Released: 12/11/22 Qty/Days Supply: Rx Expiration Date: 01/21/23 Refills Remainin OUTPT HYDROCHLOROTHIAZIDE 25MG TAB (Status = Active) TAKE ONE TABLET BY MOUTH EVERY MORNING TO PREVENT FLUID/CONTROL BLOOD PRESSURE Rx# [id number] Last Released: 02/21/23 Qty/Days Supply: 90 Rx Expiration Date: 02/07/24 Refills Remainin OUTPT IBUPROFEN 400MG TAB (Status = Discontinued) TAKE ONE TABLET BY MOUTH TWICE DAILY NEEDED TAKE WITH FOOD; FOR PAIN/INFLAMMATION/SWELLING Rx# [id number] Last Released: 12/17/22 Qty/Days Supply: 6030 Rx Expiration Date: 10/11/23 Refills Remainin OUTPT IBUPROFEN 400MG TAB (Status = Active) TAKE ONE TABLET BY MOUTH TWICE DAILY NEEDED TAKE WITH FOOD; FOR PAIN/INFLAMMATION/SWELLING Rx# [id number] Last Released: 02/10/23 Qty/Days Supply: 6030 Rx Expiration Date: 02/07/24 Refills Remainin OUTPT KETOCONAZOLE 2% SHAMPOO (Status = Active) SHAMPOO SMALL AMOUNT TOPICALLY EVERY 3 DAYS NEEDED Rx# [id number] Last Released: 02/10/23 Qty/Days Supply: 120/90 Rx Expiration Date: 11/27/23 Refills Remainin Indication: FOR FUNGAL INFECTION OF THE SKIN OUTPT LOSARTAN 100MG TAB (Status = Active) TAKE ONE TABLET BY MOUTH ONCE DAILY FOR BLOOD PRESSURE/HEART Rx# [id number] Last Released: 03/20/23 Qty/Days Supply: 90 Rx Expiration Date: 07/08/23 Refills Remainin OUTPT METFORMIN HCL 1000MG TAB (Status = Discontinued) TAKE ONE TABLET BY MOUTH ONCE DAILY FOR DIABETES Rx# [id number] Last Released: 01/01/23 Qty/Days Supply: 90 Rx Expiration Date: 07/08/23 Refills Remainin OUTPT METFORMIN HCL 1000MG TAB (Status = Active/Suspended) TAKE ONE TABLET BY MOUTH ONCE DAILY FOR DIABETES Rx# [id number] Last Released: Qt Supply: 90 Rx Expiration Date: 02/07/24 Refills Remainin OUTPT SIMVASTATIN 80MG TAB (Status = Active) TAKE ONE-HALF TABLET BY MOUTH AT BEDTIME FOR CHOLESTEROL Rx# [id number] Last Released: 03/10/23 Qty/Days Supply: 45 Rx Expiration Date: 10/11/23 Refills Remainin OUTPT TACROLIMUS 0.03% TOP OINT (Status = Active) APPLY THIN LAYER TOPICALLY TWICE DAILY NEEDED Rx# [id number] Last Released: 02/06/23 Qty/Days Supply: 30 Rx Expiration Date: 11/27/23 Refills Remainin Indication: FOR ECZEMA OUTPT TAMSULOSIN HCL 0.4MG CAP (Status = Discontinued) TAKE ONE CAPSULE BY MOUTH AT BEDTIME Rx# [id number] Last Released: 01/22/23 Qty/Days Supply: Rx Expiration Date: 03/29/23 Refills Remainin OUTPT TAMSULOSIN HCL 0.4MG CAP (Status = Active/Suspended) TAKE ONE CAPSULE BY MOUTH AT BEDTIME Rx# [id number] Last Released: Qt Supply: Rx Expiration Date: 02/07/24 Refills Remainin SUPPLIES /mary kate/ NINA MEDINA DNP, AWNING SPREADER-C NURSE PRACTITIONER Signed: 03/24/2023 12:51 NINA MEDINA CNT [facility]
--- OUTSIDE RECORDS SUMMARY | 2024-03-02 08:46 | XMS_ITS | Encounter Summary ---
Author Name [facility] [place] Organization [facility] [facility] [place] Address [address] [place] [address] Care Team Providers Care Paralegal Internship Name Role Phone CRISTIANO DECKER Primary Care [...] PART A Mar 16, 2010 PART A [id number] [phone] LOWELL FRANK JR PATIENT MEDICARE (WNR) MEDICARE (M) PART A Mar 16, 2010 PART A [id number] [phone] LOWELL FRANK JR PATIENT MEDICARE (WNR) MEDICARE (M) PART A Mar 16, 2010 PART A [id number] [phone] LOWELL FRANK JR PATIENT Selected Encounter This section includes the information on record at OR for the Encounter. Date/Time Encounter Type Encounter Description Reason Pro vider Source Mar 25, 2023 02:03 PM Outpatient Encounter COMMUNITY CARE CONSULT IHE Encounter Template Text not used by OR Plan of Treatment: Future Appointments (+ 6 months) and Future Tests (+/- 45 days) The Plan of Treatment section includes future care activities for the patient from all [place] [facility]. This section includes future appointments and future orders which are active, pending or scheduled. Future Appointments This section includes appointments that were scheduled to occur 6 months from the date of the Encounter, up to a maximum of 20 appointments. The data comes from all [place] treatment facilities. Appointment Date/Time Appointment Type Appointme nt Facility Name Apr 02, 2023 09:00 AM AMBULATORY - MEDICINE [place] [facility] [place] [facility] Jun 08, 2023 08:30 AM AMBULATORY - MEDICINE [facility] [place] [facility] Social History: Smoking Status (Most current) and Tobacco Use (All prior to encounter date) This section includes the most current, and the historical, smoking and tobacco- related health factors from the VA facility where the Encounter took place. Current Smoking Status This section includes the most current smoking, or tobacco-related health factor, from the [place] facility where the Encounter took place. Date/Time Current Smoking Status Comment Facil ity Jan 29, 2023 09:44 AM VA-TOBACCO FORMER USER [place] [facility] [place] [facility] Tobacco Use History This section includes a history of the smoking, or tobacco-related health factors, that were collected on or before the date of the Encounter. The data comes from the [place] facility where the Encounter took place. Date/Time Smoking Status/Tobacco Use Comment F acility Jan 29, 2023 09:44 AM VA-TOBACCO QUIT 15 YRS OR MORE OR [facility] [place] [facility] Dec 13, 2021 11:25 AM VA-TOBACCO FORMER USER [place] [facility] [place] [facility] Dec 13, 2021 11:25 AM VA-TOBACCO QUIT 15 YRS OR MORE [place] [facility] [place] [facility] Jan 02, 2021 02:07 PM VA-TOBACCO FORMER USER [place] [facility] [place] [facility] Jan 02, 2021 02:07 PM VA-TOBACCO QUIT 15 YRS OR MORE [place] [facility] [place] [facility] Feb 01, 2020 08:30 AM VA-TOBACCO FORMER USER [place] [facility] [place] [facility] Feb 01, 2020 08:30 AM VA-TOBACCO QUIT 15 YRS OR MORE [facility] Nov 16, 2018 02:39 PM [facility] Nov 16, 2018 02:39 PM VA-TOBACCO QUIT 15 YRS OR MORE [facility] Nov 06, 2017 02:22 PM VA-TOBACCO FORMER USER [facility] Nov 06, 2017 02:22 PM VA-TOBACCO QUIT 15 YRS OR [facility] Jan 07, 2017 09:30 AM LIFETIME NON-TOBACCO [facility] Jan 08, 2016 09:06 AM QUIT TOBACCO USE > 7 YEARS AGO [facility] Oct 10, 2014 11:16 AM QUIT TOBACCO USE > 7 YEARS AGO . [facility] Advance Directives: All historical and current Section Date Range: From patient's date of to the date document was created. This section includes ALL of a patient's completed or amended [place] Advance and Rescinded Directives. The entries below indicate that a directive exists for the patient, but an actual copy is not included with this document. The data comes from all [place] facilities. Date Advance Directives Provider Source Dec 02, 2019 ADVANCE DIRECTIVE CAROLINACATHYSLI [facility] Encounter Notes: All associated encounter notes This section contains the clinical notes associated to the Encounter. Date/Time Encounter Note(s) Provider Source Mar 25, 2023 06:03 PM ADDENDUM: LOCAL TITLE: Addendum STANDARD TITLE: ADDENDUM DATE OF NOTE: MAR 25, 2023@18:03:04 ENTRY DATE: MAR 25, 2023@18:03:05 AUTHOR: CRISTIANO DECKER COSIGNER: URGENCY: STATUS: COMPLETED above ordered. Please work with CC team as I view this as andrew. /mary kate/ Cristiano Decker PA-C STAFF PHYSICIAN DYNAMO TENDER Signed: 03/25/2023 18:03 Receipt Acknowledged By: 03/26/2023 07:52 /mary kate/ RAMIRO SWARTZ RN REGISTERED NURSE --- Original Document --- 03/25/23 COMMUNITY CARE-CARE COORDINATION PLAN NOTE: The is following with [facility], ODILON Gallegos has ordered a Cardiac Cath to be performed at [facility] d/t abnormal nuclear stress, CP and SOB. Please place CC Cariology referral if in agreement. [address] ODILONI [phone] /mary kate/ KEVIN HEREDIA RN STAFF NURSE Signed: 03/25/2023 14:08 Receipt Acknowledged By: 03/25/2023 18:03 /mary kate/ Cristiano Decker PA-C STAFF PHYSICIAN DYNAMO TENDER 03/26/2023 07:50 /mary kate/ RAMIRO SWARTZ RN REGISTERED NURSE 03/25/2023 ADDENDUM STATUS: UNSIGNED You may not VIEW this UNSIGNED Addendum. CRISTIANO DECKER [place] [facility] [place] [facility] Mar 25, 2023 02:03 PM NONVA NOTE: LOCAL TITLE: COMMUNITY CARE-CARE COORDINATION PLAN NOTE STANDARD TITLE: NONVA NOTE DATE OF NOTE: MAR 25, 2023@14:03 ENTRY DATE: MAR 25, 2023@14:05:33 AUTHOR: KEVIN HEREDIA COSIGNER: URGENCY: STATUS: COMPLETED COMMUNITY CARE-CARE COORDINATION PLAN NOTE Has ADDENDA The [place] is following with [facility], ODILON Gallegos has ordered a Cardiac Cath to be performed at [facility] d/t abnormal nuclear stress, CP and SOB. Please place CC Cariology referral if in agreement. [address] ODILONI [phone] /mary kate/ KEVIN HEREDIA RN STAFF NURSE Signed: 03/25/2023 14:08 Receipt Acknowledged By: 03/25/2023 18:03 /mary kate/ Cristiano Decker PA-C STAFF PHYSICIAN DYNAMO TENDER 03/26/2023 07:50 /mary kate/ RAMIRO SWARTZ RN REGISTERED NURSE 03/25/2023 ADDENDUM STATUS: COMPLETED above ordered. Please work with CC team as I view this as andrew. /es/ Cristiano Decker PA-C STAFF PHYSICIAN DYNAMO TENDER Signed: 03/25/2023 18:03 Receipt Acknowledged By: 03/26/2023 07:52 /mary kate/ RAMIRO SWARTZ RN REGISTERED NURSE 03/26/2023 ADDENDUM STATUS: COMPLETED The is scheduled at [facility] for his Cath next . [facility] Cardiololgy ordered Metoprolol and it has been ordered fo rmail. He needs a few days worth so he can start it right away, he was advised to go to the pharmacy and request a partial which he will do today. I sent a message to pharmacy. /mary kate/ KEVIN HEREDIA RN STAFF NURSE Signed: 03/26/2023 08:55 04/04/2023 ADDENDUM STATUS: COMPLETED Cardiac Cath was performed at [facility] ordered by Cariology MANAGER USER EXPERIENCE Kimmy Tsai, full record sent to scan: Conclusions Diagnostic Summary 78-year-old gentleman who has been experiencing atypical chest pains and dyspnea on exertion. Exercise stress test where septal perfusion defect was noted. He was referred to us for diagnostic angiography. Hemodynamics: Normal systemic pressures. Normal LVEDP. There is no significant gradient across aortic valve on pullback. Coronary anatomy: Right dominant circulation. No significant knee artery disease was noticed. Diagnostic Recommendations Aggressive primary risk factor modification according to ATP III guidelines. Consider evaluation for non-cardiac causes of symptoms. ACC Diagnostic Recommendations: Medical therapy and/or counseling. Complications:None. /mary kate/ KEVIN HEREIDA RN STAFF NURSE Signed: 04/04/2023 11:45 KEVIN HEREDIA CNTRL [facility]
--- OUTSIDE RECORDS SUMMARY | 2024-03-02 08:47 | XMS_ITS ---
Author Name [facility] [facility] [place] [facility] [place] Address [address] [place] [address] Care Team Providers Care Resource Paraprofessional Name Role Phone DALLIN LUCERO Primary Care [...] PART A Mar 16, 2010 PART A [id number] [phone] LOWELL FRANK JR PATIENT MEDICARE (WNR) MEDICARE (M) PART A Mar 16, 2010 PART A [id number] LOWELL FRANK JR PATIENT MEDICARE (WNR) MEDICARE (M) PART A Mar 16, 2010 PART A [id number] LOWELL FRANK JR PATIENT Selected Encounter This section includes the information on record at [place] for the Encounter. Date/Time Encounter Type Encounter Description Reason Pro vider Source Oct 24, 2023 07:25 AM Outpatient Encounter TELEPHONE TRIAGE IHE Encounter Template Text not used by VA Plan of Treatment: Future Appointments (+ 6 months) and Future Tests (+/- 45 days) The Plan of Treatment section includes future care activities for the [facility] [place] [facility] This section includes future appointments and future orders which are active, pending or scheduled. Future Appointments This section includes appointments that were scheduled to occur 6 months from the date of the Encounter, up to a maximum of 20 appointments. The data comes from all [place] treatment facilities. Appointment Date/Time Appointment Type Appointme nt Facility Name Oct 25, 2023 11:00 AM AMBULATORY - MEDICINE [place] [facility] [place] [facility] Jan 01, 2024 08:30 AM AMBULATORY - MEDICINE [place] [facility] [place] [facility] Jan 07, 2024 09:00 AM AMBULATORY - MEDICINE [place] C [facility] [place] [facility] Jan 18, 2024 08:00 AM AMBULATORY - REHAB MEDICIN E [place] [facility] [place] [facility] Jan 20, 2024 10:30 AM AMBULATORY - MEDICINE [place] [facility] [place] [facility] Feb 18, 2024 09:00 AM AMBULATORY - REHAB MEDICIN E [place] [facility] [place] [facility] Mar 02, 2024 08:45 AM AMBULATORY - MEDICINE [facility] [place] [facility] Social History: Smoking Status (Most current) and Tobacco Use (All prior to encounter date) This section includes the most current, and the historical, smoking and tobacco- related health factors from the [place] facility where the Encounter took place. Current Smoking Status This section includes the most current smoking, or tobacco-related health factor, from the [place] facility where the Encounter took place. Date/Time Current Smoking Status Comment Facil ity Jan 29, 2023 09:44 AM [facility]ACCO [facility] Tobacco Use History This section includes a history of the smoking, or tobacco-related health factors, that were collected on or before the date of the Encounter. The data comes from the [place] facility where the Encounter took place. Date/Time Smoking Status/Tobacco Use Comment F acility Jan 29, 2023 09:44 AM GA-TOBACCO QUIT 15 YRS OR MORE [place] [facility] [place] [facility] Dec 13, 2021 11:25 AM VA-TOBACCO FORMER USER [place] [facility] [place] [facility] Dec 13, 2021 11:25 AM VA-TOBACCO QUIT 15 YRS OR MORE VA [facility] [place] [facility] Jan 02, 2021 02:07 PM VA-TOBACCO FORMER USER VA [facility] [place] [facility] Jan 02, 2021 02:07 PM VA-TOBACCO QUIT 15 YRS OR MORE VA [facility] [place] [facility] Feb 01, 2020 08:30 AM VA-TOBACCO FORMER USER VA [facility] [place] [facility] Feb 01, 2020 08:30 AM VA-TOBACCO QUIT 15 YRS OR MORE VA [facility] [place] [facility] Nov 16, 2018 02:39 PM VA-TOBACCO FORMER USER VA [facility] [place] [facility] Nov 16, 2018 02:39 PM VA-TOBACCO QUIT 15 YRS OR MORE VA [facility] [place] [facility] Nov 06, 2017 02:22 PM VA-TOBACCO FORMER USER [place] [facility] [place] [facility] Nov 06, 2017 02:22 PM VA-TOBACCO QUIT 15 YRS OR MORE [place] [facility] [place] [facility] Jan 07, 2017 09:30 AM LIFETIME NON-TOBACCO USER [place] [facility] [place] [facility] Jan 08, 2016 09:06 AM QUIT TOBACCO USE > 7 YEARS AGO [place] [facility] [place] [facility] Oct 10, 2014 11:16 AM QUIT TOBACCO USE > 7 YEARS AGO . [place] [facility] [place] [facility] Advance Directives: All historical and current Section Date Range: From patient's date of to the date document was created. This section includes ALL of a patient's completed or amended [place] Advance and Rescinded Directives. The entries below indicate that a directive exists for the patient, but an actual copy is not included with this document. The data comes from all [place] facilities. Date Advance Directives Provider Source Dec 02, 2019 ADVANCE DIRECTIVE LI ZHAO [place] [facility] [place] [facility] Encounter Notes: All associated encounter notes This section contains the clinical notes associated to the Encounter. Date/Time Encounter Note(s) Provider Source Oct 24, 2023 07:25 AM RN PROGRESS NOTE: LOCAL TITLE: CCC: CLINICAL TRIAGE STANDARD TITLE: RN PROGRESS NOTE DATE OF NOTE: OCT 24, 2023@07:25:39 ENTRY DATE: OCT 24, 2023@07:25:39 AUTHOR: WELLINGTON SANCHEZ COSIGNER: URGENCY: STATUS: COMPLETED CCC: CLINICAL TRIAGE Has ADDENDA Patient Demographics Patient Name: DALLIN FRANK Patient Primary Address: [address] [place] [address] [address] [place] [address] Patient Primary Phone: [phone] Patient : 1945 Patient Age: 78 Caller/Recipient Relation to Patient: Self Emergency Contact: ELLEN FRANK Triage Summary Utilized the Triage Tool: Yes Chief Complaint: Sinus Congestion System WHEN: Within 3 Days Nurse's Recommendation / WHEN: Within 24 Hours System WHERE: Clinic Nurse's Recommendation / WHERE: Virtual Video Visit COVID Screening Patient confirms the following symptoms Cough Fever Runny Nose Sore throat Nursing Plan and Disposition Referred for [facility] Virtual Clinic Visit Transferred patient to [facility] Other Description: [facility] COUPON CLERK Nurse Summary Nurse Summary: Vet called with c/o sinus congestion x 3 days. Stated that he recently came back from an overseas trip to [place]. Bringing up yellowish mucus. Feels warm, unable to check his temp. Reports pain in his teeth associated with sinus congestion Has had mild sore throat. PMH: Sinusitis Denies SOB, chest pain, coughing up blood, wheezing, headache, eye pain, confusion. Advised vet to seek emergency medical care for worsening and persisting symptoms. No home COVID test available. Call warm transferred to schedule an appt with [facility] Clinical Contact Center Codes Clinic/Location: V1 CWM PHONE [facility] RN Decision Support System Output: Triage Complete Triage Date: 10/24/2023, 07:11 AM Triage Note: Decision Support Tool Used: [facility] Phone Triage Sat, 24 Oct 2023 11:06:33 +0000 [facility] Demographics 78 y/o Male Results CC: Sinus Congestion Software suggested: Within 3 Days Software suggested follow-up location: Clinic, consider virtual care Values and Measures Duration of CC: 3 Days Positive Responses HPI: cough, new or worsening HPI: cough, purulent sputum HPI: fever, subjective HPI: nasal congestion, duration longer than 2 days HPI: rhinorrhea, yellow or brown PMH: diabetes VS: respiratory rate not taken VS: temperature not taken Negative Responses Denies: HPI: breathing more rapidly than usual Denies: HPI: chest pain, pleuritic Denies: HPI: confusion, new or worsening Denies: HPI: cough, moderate to severe Denies: HPI: cough, severe, onset within past 3 hours Denies: HPI: dyspnea on exertion, worse than usual Denies: HPI: dyspnea, new or worsening Denies: HPI: hemoptysis, blood-streaked sputum Denies: HPI: pain, maxillary or frontal sinuses Denies: HPI: sore throat Denies: HPI: vomiting Denies: HPI: wheezing, new or worsening Denies: MEDS: antibiotic Denies: MEDS: chemotherapy Denies: MEDS: insulin Denies: PMH: CHF Denies: PMH: heart disease Denies: PMH: HIV positive Denies: PSH: organ transplant Denies: PSH: spleen removed [facility] Education Verbal Education Provided for: Sinusitis Home Care /mary kate/ WELLINGTON KELLY 2 [facility] RN Signed: 10/24/2023 07:25 Receipt Acknowledged By: 10/26/2023 08:05 /mary kate/ RAMIRO SWARTZ, RN REGISTERED NURSE 10/26/2023 08:18 /mary kate/ RAMIRO SWARTZ, RN REGISTERED NURSE for ELLIE BENITEZ 10/24/2023 ADDENDUM STATUS: COMPLETED Scheduled vet for appointment within 24 hrs per V2 [facility] RN 's triage for Phone appt for sinus congestion 10/24 @ 11 am /mary kate/ DURGA KELLY 2 [facility] AMSA Signed: 10/24/2023 07:26 WELLINGTON SANCHEZ CN[facility]L [facility]
--- OUTSIDE RECORDS SUMMARY | 2024-03-02 08:47 | XMS_ITS ---
Author Name [facility] [facility] [place] Organization [facility] [place] Address [address] [place] [address] Care Team Providers Care Flying Instructor Name Role Phone CRISTIANO DECKER Primary Care [...] PART A Mar 16, 2010 PART A [id number] LOWELL FRANK JR PATIENT MEDICARE (WNR) MEDICARE (M) PART A Mar 16, 2010 PART A [id number] LOWELL FRANK JR PATIENT MEDICARE (WNR) MEDICARE (M) PART A Mar 16, 2010 PART A [id number] LOWELL FRANK JR PATIENT Selected Encounter This section includes the information on record at [place] for the Encounter. Date/Time Encounter Type Encounter Description Reason Provider Source Oct 01, 2023 10:00 AM OFFICE O/P EST LOW 20 MIN PRIMARY CARE/MEDICINE ICD-10-CM E11.9 Type 2 diabetes mellitus without complications CRISELDA DECKER [facility] Encounter Template Text not used by [place] Assessments - Encounter Diagnoses This section includes the primary and secondary diagnoses documented for the Encounter. Date/Time Primary/Secondary Diagnosis Diagnosis Name Provider Source Oct 01, 2023 10:37 AM PRIMARY Type 2 diabetes mellitus without complications CRISELDA DECKER [facility] Plan of Treatment: Future Appointments (+ 6 months) and Future Tests (+/- 45 days) The Plan of Treatment section includes future care activities for the patient from [facility] [place] [facility] This section includes future appointments and future orders which are active, pending or scheduled. Future Appointments This section includes appointments that were scheduled to occur 6 months from the date of the Encounter, up to a maximum of 20 appointments. The data comes from all [place] treatment facilities. Appointment Date/Time Appointment Type Appointme nt Facility Name Oct 25, 2023 11:00 AM AMBULATORY - MEDICINE [facility] [place] [facility] Jan 01, 2024 08:30 AM AMBULATORY - MEDICINE [facility] [facility] Jan 07, 2024 09:00 AM AMBULATORY - MEDICINE [facility] [place] [facility] Jan 18, 2024 08:00 AM [facility] [place] [facility] Jan 20, 2024 10:30 AM AMBULATORY - MEDICINE [facility] [place] [facility] Feb 18, 2024 09:00 AM AMBULATORY - REHAB MEDICIN E [place] [facility] Mar 02, 2024 08:45 AM AMBULATORY - MEDICINE [facility] [place] [facility] Lab Results: +/- 30 days of the encounter This section includes the Chemistry and Hematology Lab Results on record with [place] for the patient. Radiology Reports and Pathology Reports are provided separately, in subsequent sections. Lab Results This section contains the Chemistry/Hematology Results that were resulted 30 days before or 30 daysafter the date of the Encounter. Date/Time Source Result Type Result - Unit Interpretation Reference Range Comment Sep 10, 2023 07:57 AM [facility] HEMOGLOBIN A1C PANEL Specimen Type: BLOOD Comment: Values obtained from A1C measurements can vary. For atypical A1C assays, a reported value of 7.0 could actually be between 6.72 and 7.28 if measured by a reference method. A reported value of 9.0 could actually be between 8.73 and 9.27. Ref: http://www.ngs p.org/CAPdata. asp Ordering Provider: TANMAY DECKERM F Report Released Date/Time: Sep 10, 2023 07:48 AM Reporting Lab: [facility] [address] [facility] [address] Performing Lab: [address] [address] HEMOGLOBIN A1C 6.1 H 4.0-5.6 Sep 10, 2023 07:57 AM [facility] LIPID PANEL FASTING Specimen Type: SERUM No comment entered. Ordering Provider: TANMAY DECKERM F Report Released Date/Time: Sep 10, 2023 07:48 AM Reporting Lab: [facility] [address] [facility] [address] Performing Lab: [address] [address] CHOLESTEROL 172 mg/dL TRIGLYCERIDE 105 mg/dL 0-150 LDL calculated 94 mg/dL 0-129 CHOL/HDL 3.0 HDL CHOLESTEROL 57 mg/dL 40-60 Sep 10, 2023 07:57 AM [facility] LIVER FUNCTION Specimen Type: SERUM No comment entered. Ordering Provider: TANMAY DECKER F Report Released Date/Time: Sep 10, 2023 07:48 AM Reporting Lab: [facility] [address] [facility] [address] Performing Lab: [address] [address] PROTEIN,TOTAL 6.5 g/dL 6.0-8.3 ALBUMIN 4.0 g/dL 3.5-5.0 ALKALINE PHOSPHATASE 59 U/L 40-150 AST 18 U/L 5-34 ALT 19 U/L BILIRUBIN, TOTAL 0.7 mg/dL 0.2-1.2 Sep 10, 2023 07:57 AM [facility] BASIC METABOLIC PANEL (fasting) Specimen Type: SERUM No comment entered. Ordering Provider: TANMAY DECKER Report Released Date/Time: Sep 10, 2023 07:48 AM Reporting Lab: [facility] [address] [facility] [address] Performing Lab: [facility] [address] [facility] [address] UREA NITROGEN 18 mg/dL 7-25 GLUCOSE 118 mg/dL H 65-100 SODIUM 136 mmol/L 135-145 POTASSIUM 4.1 mmol/L 3.5-5.0 CHLORIDE 100 mmol/L 100-110 CO2 27 meq/L 20-30 CREATININE, Serum 0.98 mg/dL 0.50-1.40 eGFR(CKD-EPI 2020) 79 mL/min >60 Vital Signs: All taken on the encounter date This section contains inpatient and outpatient Vital Signs collected on the date of the Encounter. Date/Time Temperature Pulse Blood Pressure Respiratory Rate SP02 Pain Height Weight Body Mass Index Source Oct 01, 2023 10:02 AM 76 74 102/64 16 100 0 167 29 [facility] Social History: Smoking Status (Most current) and Tobacco Use (All prior to encounter date) This section includes the most current, and the historical, smoking and tobacco- related health factors from the [place] facility where the Encounter took place. Current Smoking Status This section includes the most current smoking, or tobacco-related health factor, from the [place] facility where the Encounter took place. Date/Time Current Smoking Status Comment Supriya houston Jan 29, 2023 09:44 AM VA-TOBACCO FORMER USER [facility] Tobacco Use History This section includes a history of the smoking, or tobacco-related health factors, that were collected on or before the date of the Encounter. The data comes from the [place] facility where the Encounter took place. Date/Time Smoking Status/Tobacco Use Comment F vee Jan 29, 2023 09:44 AM VA-TOBACCO QUIT 15 YRS OR MORE [facility] Dec 13, 2021 11:25 AM VA-TOBACCO FORMER USER [facility] Dec 13, 2021 11:25 AM VA-TOBACCO QUIT 15 YRS OR MORE [place] [facility] Jan 02, 2021 02:07 PM VA-TOBACCO FORMER USER [place] [facility] [place] [facility] Jan 02, 2021 02:07 PM VA-TOBACCO QUIT 15 YRS OR MORE [place] [facility] [place] [facility] Feb 01, 2020 08:30 AM VA-TOBACCO FORMER USER [facility] [place] [facility] Feb 01, 2020 08:30 AM VA-TOBACCO QUIT 15 YRS OR MORE ND [place] [facility] Nov 16, 2018 02:39 PM VA-TOBACCO FORMER USER [place] [facility] Nov 16, 2018 02:39 PM VA-TOBACCO QUIT 15 YRS OR MORE ND [place] [facility] Nov 06, 2017 02:22 PM VA-TOBACCO FORMER USER [place] [facility] Nov 06, 2017 02:22 PM VA-TOBACCO QUIT 15 YRS OR MORE ND [place] [place] [facility] Jan 07, 2017 09:30 AM LIFETIME NON-TOBACCO USER ND [place] [place] [facility] Jan 08, 2016 09:06 AM QUIT TOBACCO USE > 7 YEARS AGO [place] [facility] Oct 10, 2014 11:16 AM QUIT TOBACCO USE > 7 YEARS AGO . [place] [facility] Advance Directives: All historical and current Section Date Range: From patient's date of to the date document was created. This section includes ALL of a patient's completed or amended [place] Advance and Rescinded Directives. The entries below indicate that a directive exists for the patient, but an actual copy is not included with this document. The data comes from all [place] facilities. Date Advance Directives Provider Source Dec 02, 2019 ADVANCE DIRECTIVE LI ZHAO [place] [facility] Encounter Notes: All associated encounter notes This section contains the clinical notes associated to the Encounter. Date/Time Encounter Note(s) Provider Source Oct 01, 2023 10:33 AM PHYSICIAN [employer] DEVELOPER NOTE: LOCAL TITLE: [place] NOTE STANDARD TITLE: PHYSICIAN [employer] DEVELOPER NOTE DATE OF NOTE: OCT 01, 2023@10:33 ENTRY DATE: OCT 01, 2023@10:33:46 AUTHOR: CRISTIANO DECKER COSIGNER: URGENCY: STATUS: COMPLETED CC/HPI/A/P: 78 year old MALE here in follow-up for; Dm, well controlled htn, well controlled. They leave for [place] on thursday. Review of systems: Patient reports no changes from [place]ual State [place] Health[place], in meds or any admissions. Active problems - Computerized Problem List is the source for the followin. Exposure to potentially hazardous substance ([facility] [id number]) Entered automatically through ProPerforma Problem List documentation program 2. Diastasis recti 3. Type 2 diabetes mellitus without complication 4. Psoriasis 5. Herpes simplex 6. Family history of malignant melanoma Father. 7. Hearing Loss SERVICE CONNECTED % - 80 VA and Non VA meds were reconciled with the patient who left with a corrected copy. See medication page for details. Active and Recently Outpatient Medications (excluding Supplies): Active Outpatient Medications Status 1) ACYCLOVIR 400MG TAB TAKE ONE TABLET BY MOUTH THREE ACTIVE TIMES DAILY NEEDED 2) CETIRIZINE HCL 10MG TAB TAKE ONE TABLET BY MOUTH ONCE ACTIVE DAILY NEEDED FOR ALLERGIES 3) CHOLECALCIF 25MCG (D3-1,000UNIT) TAB TAKE ONE TABLET ACTIVE (S) BY MOUTH ONCE DAILY FOR VITAMIN SUPPLEMENTATION 4) FLUOCINONIDE 0.05% TOP SOLN APPLY SMALL AMOUNT ACTIVE TOPICALLY ONCE DAILY NEEDED 5) FLUTICASONE PROP 50MCG 120D NASAL INHL [...] MOUTH ACTIVE ONCE DAILY FOR DIABETES 11) OMEPRAZOLE 20MG EC CAP TAKE ONE CAPSULE BY MOUTH ACTIVE EVERY MORNING 30 MINUTES BEFORE BREAKFAST FOR GASTROESOPHAGEAL REFLUX DISEASE 12) SIMVASTATIN 80MG TAB TAKE ONE-HALF TABLET BY MOUTH AT ACTIVE BEDTIME FOR CHOLESTEROL 13) TACROLIMUS 0.03% TOP OINT APPLY THIN LAYER TOPICALLY ACTIVE TWICE DAILY NEEDED 14) TAMSULOSIN HCL 0.4MG CAP TAKE ONE CAPSULE BY MOUTH AT ACTIVE BEDTIME 76 F [24.4 C] (10/01/2023 10:02) 74 (10/01/2023 10:02) 16 (10/01/2023 10:02) 102/64 (10/01/2023 10:02) 0 (10/01/2023 10:02) 64.25 in [163.2 cm] (10/10/2014 11:10) 167 lb [75.75 kg] (10/01/2023 10:02) BMI: 28.5 Neuro: Alert and oriented times three, grossly nonfocal, nasolabial folds intact. Recent labs reviewed with patient today:yes. Advance Directive Screen MH AD: Patient has an Advance Directive on file at this [facility]. No updates are needed at this time. The patient received education about Advance Directives and written notification of his/her rights. RHS Screen: RHS Screen Environmental Check Upon inquiry, the individual reports that the environment is safe to proceed. Informed Consent to Screen and Document The individual consents to proceed with screening. The individual consents to documentation of responses. PRIMARY SCREEN: In the past 12 months, how often did a current or former intimate partner (e.g., boyfriend, girlfriend, , , sexual partner): 1. Scream or curse at you Never 2. Insult or talk down to you Never 3. Threaten you with harm Never 4. Physically hurt you Never 5. Force or pressure you to have sexual contact against your will, or when you were unable to say no Never ?? The HITS tool (items 1-4 above) is [place] copyright protected by Bill Tabares MD, and the user has full rights to use it throughout the [place] system. PRIMARY SCREEN RESULT: The Primary Screen is NEGATIVE. The individual answered never to all forms of IPV above (i.e., answered never to all 5 items) The individual accepts education and/or resources: Other: EDUCATION: Other: /mary kate/ Cristiano Decker PA-C STAFF PHYSICIAN [employer] DEVELOPER Signed: 10/01/2023 10:37 CRISTIANO DECKER [place] [facility] [facility] Oct 01, 2023 10:05 AM PREVENTIVE MEDICINE NURSING NOTE: LOCAL TITLE: CLINICAL REMINDERS/NURSING STANDARD TITLE: PREVENTIVE MEDICINE NURSING NOTE DATE OF NOTE: OCT 01, 2023@10:05 ENTRY DATE: OCT 01, 2023@10:05:27 AUTHOR: ELLIE BENITEZ EXP COSIGNER: URGENCY: STATUS: COMPLETED Suicide Screen: C-SSRS Screening [place] Suicide Severity Rating Scale (C-SSRS) screener 1. Over the past month, have you wished you were or wished you could go to sleep and not wake up? No 2. Over the past month, have you had any actual thoughts of killing yourself? No 3. Over the past month, have you been thinking about how you might do this? Response not required due to responses to other questions. 4. Over the past month, have you had these thoughts and had some intention of acting on them? Response not required due to responses to other questions. 5. Over the past month, have you started to work out or worked out the details of how to kill yourself? Response not required due to responses to other questions. 6. If yes, at any time in the past month did you intend to carry out this plan? Response not required due to responses to other questions. 7. In your lifetime, have you ever done anything, started to do anything, or prepared to do anything to end your life (for example, collected pills, obtained a gun, gave away valuables, went to the roof but didn't jump)? No 8. If YES, was this within the past 3 months? Response not required due to responses to other questions. Depression Screening: Perform PHQ-2 A PHQ-2 screen was performed. The score was 0 which is a negative screen for depression. Over the past two weeks, how often have you been bothered by the following problems? 1. Little interest or pleasure in doing things Not at all 2. Feeling down, depressed, or hopeless Not at all PAVE Foot Check: A complete foot check was completed at this encounter. VISUAL INSPECTION: Includes inspection for skin breaks, deformity, erythema, trauma, pallor on elevation, dependent rubor, nail deformities, extensive callus and pitting edema. Visual exam results: Normal PEDAL PULSES: Includes palpation of dorsalis and posterior tibial pulses and signs/symptoms of vascular compromise like pain, pallor, parasthesia or paralysis. Present (even if diminished) SENSORY CHECK: Includes 10 gram Monofilament (Berlin-Inder) test of sensation. Intact (Greater than or equal to 80% of sites checked) Abnormal (Less than 80% of sites checked): Intact LOW-RISK: LOW RISK INFORMATION PROVIDED: 1. Advised patient not to walk barefoot. 2. Explained the importance of daily foot checks for changes. 3. Stressed the importance of daily foot hygiene, including bathing and complete drying. The patient verbalized understanding and was offered a detailed handout on diabetic foot care. requesting podiatry at dc /mary kate/ ELLIE BENITEZ LPN Signed: 10/01/2023 10:08 RADHA BENITEZ [facility]
--- OUTSIDE RECORDS SUMMARY | 2024-03-02 08:47 | XMS_ITS ---
Author Name [facility] [place] Organization [place] Address [address] [place] [address] Care Team Providers Care Account Manager Education Name Role Phone CRISTIANO DECKER Primary Care [...] PART A Mar 16, 2010 PART A [id number] LOWELL FRANK JR PATIENT MEDICARE (WNR) MEDICARE (M) PART A Mar 16, 2010 PART A [id number] LOWELL FRANK JR PATIENT MEDICARE (WNR) MEDICARE (M) PART A Mar 16, 2010 PART A [id number] [phone] LOWELL FRANK JR PATIENT Selected Encounter This section includes the information on record at [place] for the Encounter. Date/Time Encounter Type Encounter Description Reason Provider Source July 27, 2023 07:21 AM Outpatient Encounter PRIMARY CARE/MEDICINE RAIMRO SWARTZ Encounter Template Text not used by [place] Plan of Treatment: Future Appointments (+ 6 months) and Future Tests (+/- 45 days) The Plan of Treatment section includes future care activities for the patient [facility] all [place] [facility]. This section includes future appointments and future orders which are active, pending or scheduled. Future Appointments This section includes appointments that were scheduled to occur 6 months from the date of the Encounter, up to a maximum of 20 appointments. The data comes from all [place] treatment facilities. Appointment Date/Time Appointment Type Appointme nt Facility Name Oct 01, 2023 10:00 AM AMBULATORY - [facility] Oct 25, 2023 11:00 AM [facility]ULAT[facility] MEDICINE [facility] [place] [facility] Jan 01, 2024 08:30 AM AMBULATORY MEDICINE [facility] [place] [place] [facility] Jan 07, 2024 09:00 AM AMBULATORY MEDICINE [facility] [place] [place] [facility] Jan 18, 2024 08:00 AM AMBULATORY - REHAB MEDICIN E [place] [facility] Jan 20, 2024 10:30 AM [facility]BUL[facility]ORY MEDIC[facility] Social History: Smoking Status (Most current) and Tobacco Use (All prior to encounter date) This section includes the most current, and the historical, smoking and tobacco- related health factors from the [place] facility where the Encounter took place. Current Smoking Status This section includes the most current smoking, or tobacco-related health factor, from the [place] facility where the Encounter took place. Date/Time Current Smoking Status Comment Facil ity Jan 29, 2023 09:44 AM [facility] Tobacco Use History This section includes a history of the smoking, or tobacco-related health factors, that were collected on or before the date of the Encounter. The data comes from the [place] facility where the Encounter took place. Date/Time Smoking Status/Tobacco Use Comment F acility Jan 29, 2023 09:44 AM AL-TOBACCO QUIT 15 YRS OR MORE AL [place] [facility] Dec 13, 2021 11:25 AM VA-TOBACCO FOR[facility] USER [facility] Dec 13, 2021 11:25 AM VA-TOBACCO QUIT 15 YRS OR MORE [place] [facility] Jan 02, 2021 02:07 PM VA-TOBACCO FORMER USER [facility] [place] [facility] Jan 02, 2021 02:07 PM VA-TOBACCO QUIT 15 YRS OR MORE [place] [facility] Feb 01, 2020 08:30 AM VA-TOBACCO FORMER USER [facility] [place] [facility] Feb 01, 2020 08:30 AM VA-TOBACCO QUIT 15 YRS OR MORE [place] [facility] Nov 16, 2018 02:39 PM VA-TOBACCO FORMER USER [place] [facility] Nov 16, 2018 02:39 PM VA-TOBACCO QUIT 15 YRS OR MORE [place] [place] [facility] Nov 06, 2017 02:22 PM VA-TOBACCO FORMER USER AL [place] [facility] Nov 06, 2017 02:22 PM VA-TOBACCO QUIT 15 YRS OR MORE AL [place] [facility] Jan 07, 2017 09:30 AM LIFETIME NON-TOBACCO USER [place] [facility] Jan 08, 2016 09:06 AM QUIT TOBACCO USE > 7 YEARS AGO [place] [facility] Oct 10, 2014 11:16 AM QUIT TOBACCO USE > 7 YEARS AGO . [place] [facility] Advance Directives: All historical and current Section Date Range: From patient's date of to the date document was created. This section includes ALL of a patient's completed or amended [place] Advance and Rescinded Directives. The entries below indicate that a directive exists for the patient, but an actual copy is not included with this document. The data comes from all [place] facilities. Date Advance Directives Provider Source Dec 02, 2019 ADVANCE DIRECTIVE LI ZHAO [facility] Encounter Notes: All associated encounter notes This section contains the clinical notes associated to the Encounter. Date/Time Encounter Note(s) Provider Source July 27, 2023 07:21 AM PRIMARY CARE SECUR E MESSAGING: LOCAL TITLE: PRIMARY CARE SECURE MESSAGING STANDARD TITLE: PRIMARY CARE SECURE MESSAGING DATE OF NOTE: JULY 27, 2023@07:21 ENTRY DATE: JULY 27, 2023@08:21:48 AUTHOR: RAMIRO SWARTZ EXP COSIGNER: URGENCY: STATUS: COMPLETED ------Original Message ------- Sent: 07/25/2023 08:30 AM ET From: CRISTIANO FRANK To: Brennen DECKER_PRIMARY CARE_[facility] Subject: Medication:Losartan 100 MG Tab This medication dropped out of my refill file. Could you please add back and also order. Thanks /mary kate/ RAMIRO SWARTZ, RN REGISTERED NURSE Signed: 07/27/2023 08:21 Receipt Acknowledged By: 07/27/2023 12:34 /mary kate/ Cristiano Decker PA-C STAFF PHYSICIAN BRANCH OFFICE MANAGER RAMIRO SWARTZ [place] [facility]
--- OUTSIDE RECORDS SUMMARY | 2024-03-02 08:47 | XMS_ITS | Encounter Summary ---
Author Name [facility] [place] Organization [facility] [place] Address [address] [place] [address] Care Team Providers Care Research Program Coordinator Name Role Phone DALLIN LUCERO Primary Care [...] PART A Mar 16, 2010 PART A [id number] LOWELL FRANK JR PATIENT MEDICARE (WNR) MEDICARE (M) PART A Mar 16, 2010 PART A [id number] LOWELL FRANK JR PATIENT MEDICARE (WNR) MEDICARE (M) PART A Mar 16, 2010 PART A [id number] LOWELL FRANK JR PATIENT Selected Encounter This section includes the information on record at [place] for the Encounter. Date/Time Encounter Type Encounter Description Reason Provider Source Oct 26, 2023 08:27 AM QNHP OL DIG ASSMT&MGMT 5-10 CLINICAL PHARMACY ICD-10-CM U07.1 COVID-19 ARGENIS SALAZAR IHE Encounter Template Text not used by [place] Assessments - Encounter Diagnoses This section includes the primary and secondary diagnoses documented for the Encounter. Date/Time Primary/Secondary Diagnosis Diagnosis Name Provider Source Oct 26, 2023 08:30 AM PRIMARY COVID-19 ARGENIS SALAZAR [facility] Plan of Treatment: Future Appointments (+ 6 months) and Future Tests (+/- 45 days) The Plan of Treatment section includes future care activities for the patient from all [place] [facility]. This section includes future appointments and future orders which are active, pending or scheduled. Future Appointments This section includes appointments that were scheduled to occur 6 months from the date of the Encounter, up to a maximum of 20 appointments. The data comes from all [facility] facilities. Appointment Date/Time Appointment Type Appointme nt Facility Name Jan 01, 2024 08:30 AM [facility] Jan 07, 2024 09:00 AM AMBULATORY MEDICINE [facility] NTR WSTRN [facility] Jan 18, 2024 08:00 AM AMBULAT[facility] - [facility] Jan 20, 2024 10:30 AM AM[facility]ULAT[facility] - [facility]ICINE [facility] N[facility]L [facility] Feb 18, 2024 09:00 AM [facility] [place] [facility] Mar 02, 2024 08:45 AM AMBULATORY - MEDICINE [facility] Advance Directives: All historical and current Section Date Range: From patient's date of to the date document was created. This section includes ALL of a patient's completed or amended [place] Advance and Rescinded Directives. The entries below indicate that a directive exists for the patient, but an actual copy is not included with this document. The data comes from all [facility]. Date Advance Directives Provider Source Dec 02, 2019 ADVANCE DIRECTIVE LI ZHAO [facility] Encounter Notes: All associated encounter notes This section contains the clinical notes associated to the Encounter. Date/Time Encounter Note(s) Provider Source Oct 26, 2023 08:27 AM MEDICATION MGT CON SULT: LOCAL TITLE: CONSULT REPORT/NON FORMULARY PADR STANDARD TITLE: MEDICATION MGT CONSULT DATE OF NOTE: OCT 26, 2023@08:27 ENTRY DATE: OCT 26, 2023@08:27:35 AUTHOR: ARGENIS SALAZAR EXP COSIGNER: URGENCY: STATUS: COMPLETED The medical record has been reviewed with regard to this restricted drug request. Medication requested: GOV-PAXLOVID [id number] TAB PKT 3 Medication indication: COVID19 Medical history relevant to this request: Pt with positive home COVID19 test with onset of symptoms within the last 5 days. Pt at risk for progression to severe disease and appropriate for oral treatment. Pt with eGFR >60. Pt is aware to hold tamsulosin x8 days (during treatment and 3 days after) and simvastatin x10 days (during treatment and 5 days after) due to drug-drug interaction with Paxlovid. The request is APPROVED - No formulary-preferred alternative /mary kate/ Argenis Salazar, PharmC[place], [facility] Clinical Report Analyst Signed: 10/26/2023 08:30 ARGENIS SALAZAR [facility]
--- OUTSIDE RECORDS SUMMARY | 2024-03-02 08:47 | XMS_ITS | Encounter Summary ---
Author Name [facility] [place] Address [address] [place] [address] Care Team Providers Care Belt Repairer Name Role Phone CRISTIANO DECKER Primary Care [...] PART A Mar 16, 2010 PART A [id number] LOWELL FRANK JR PATIENT MEDICARE (WNR) MEDICARE (M) PART A Mar 16, 2010 PART A [id number] LOWELL FRANK JR PATIENT MEDICARE (WNR) MEDICARE (M) PART A Mar 16, 2010 PART A [id number] [phone] LOWELL FRANK JR PATIENT Selected Encounter This section includes the information on record at [place] for the Encounter. Date/Time Encounter Type Encounter Description Reason Provider Source Aug 20, 2023 10:23 AM Outpatient Encounter PRIMARY CARE/MEDICINE GLO RUCKER Encounter Template Text not used by [place] Plan of Treatment: Future Appointments (+ 6 months) and Future Tests (+/- 45 days) The Plan of Treatment section includes future care activities for the patient from all [place] [facility]. This section includes future appointments and future orders which are active, pending or scheduled. Future Appointments This section includes appointments that were scheduled to occur 6 months from the date of the Encounter, up to a maximum of 20 appointments. The data comes from all [place] treatment facilities. Appointment Date/Time Appointment Type Appointme nt Facility Name Oct 01, 2023 10:00 AM AM[place]ULATORY [place]ICINE [place] [facility] Oct 25, 2023 11:00 AM AM[place]ULATORY [place]ICINE [place] [facility] Jan 01, 2024 08:30 AM AM[place]ULATORY [place]ICINE [place] [facility] Jan 07, 2024 09:00 AM AMBULATORY MEDICINE [facility] N[facility]L [place] [facility] Jan 18, 2024 08:00 AM AMBULATORY - [place]ICIN [place] [facility] Jan 20, 2024 10:30 AM AMBULATORY MEDICINE [facility] N[facility]L [place] [facility] Feb 18, 2024 09:00 AM [facility] [place] [facility] Lab Results: +/- 30 days of the encounter This section includes the Chemistry and Hematology Lab Results on record with [place] for the patient. Radiology Reports and Pathology Reports are provided separately, in subsequent sections. Lab Results This section contains the Chemistry/Hematology Results that were resulted 30 days before or 30 daysafter the date of the Encounter. Date/Time Source Result Type Result - Unit Interpretation Reference Range Comment Sep 10, 2023 07:57 AM [facility] WSN [facility] HEMOGLOBIN A1C PANEL Specimen Type: BLOOD Comment: Values obtained from A1C measurements can vary. For atypical A1C assays, a reported value of 7.0 could actually be between 6.72 and 7.28 if measured by a reference method. A reported value of 9.0 could actually be between 8.73 and 9.27. Ref: http://www.ngs p.org/CAPdata. asp Ordering Provider: TANMAY DECKER Report Released Date/Time: Sep 10, 2023 07:48 AM Reporting Lab: [place] [facility] [address] [facility] [address] Performing Lab: [place] [facility] [address] [facility] [address] HEMOGLOBIN A1C 6.1 H 4.0-5.6 Sep 10, 2023 07:57 AM [facility] LIVER FUNCTION Specimen Type: SERUM No comment entered. Ordering Provider: TANMAY DECKER F Report Released Date/Time: Sep 10, 2023 07:48 AM Reporting Lab: [place] [facility] [facility] [facility] [address] [facility] [address] Performing Lab: [facility] [address] [address] PROTEIN,TOTAL 6.5 g/dL 6.0-8.3 ALBUMIN 4.0 g/dL 3.5-5.0 ALKALINE PHOSPHATASE 59 U/L 40-150 AST 18 U/L 5-34 ALT 19 U/L BILIRUBIN, TOTAL 0.7 mg/dL 0.2-1.2 Sep 10, 2023 07:57 AM [facility] LIPID PANEL FASTING Specimen Type: SERUM No comment entered. Ordering Provider: TANMAY DECKER F Report Released Date/Time: Sep 10, 2023 07:48 AM Reporting Lab: [place] [facility] [address] [address] Performing Lab: [place] [facility] [facility] [address] [address] CHOLESTEROL 172 mg/dL TRIGLYCERIDE 105 mg/dL 0-150 LDL calculated 94 mg/dL 0-129 CHOL/HDL 3.0 HDL CHOLESTEROL 57 mg/dL 40-60 Sep 10, 2023 07:57 AM [facility] BASIC METABOLIC PANEL (fasting) Specimen Type: SERUM No comment entered. Ordering Provider: TANMAY DECKER F Report Released Date/Time: Sep 10, 2023 07:48 AM Reporting Lab: [facility] [place] [facility] [address] [facility] [address] Performing Lab: [facility] [place] [place] [facility] [address] [address] UREA NITROGEN 18 mg/dL 7-25 GLUCOSE 118 mg/dL H 65-100 SODIUM 136 mmol/L 135-145 POTASSIUM 4.1 mmol/L 3.5-5.0 CHLORIDE 100 mmol/L 100-110 CO2 27 meq/L 20-30 CREATININE, Serum 0.98 mg/dL 0.50-1.40 eGFR(CKD-EPI 2020) 79 mL/min >60 Social History: Smoking Status (Most current) and Tobacco Use (All prior to encounter date) This section includes the most current, and the historical, smoking and tobacco- related health factors from the [place] facility where the Encounter took place. Current Smoking Status This section includes the most current smoking, or tobacco-related health factor, from the [place] facility where the Encounter took place. Date/Time Current Smoking Status Comment Facil ity Jan 29, 2023 09:44 AM VA-TOBACCO FORMER USER [place] CN[facility] [facility] Tobacco Use History This section includes a history of the smoking, or tobacco-related health factors, that were collected on or before the date of the Encounter. The data comes from the [place] facility where the Encounter took place. Date/Time Smoking Status/Tobacco Use Comment F acility Jan 29, 2023 09:44 AM VA-TOBACCO QUIT 15 YRS OR MORE [facility] [place] [facility] Dec 13, 2021 11:25 AM VA-TOBACCO FORMER USER [place] [facility] [place] [facility] Dec 13, 2021 11:25 AM VA-TOBACCO QUIT 15 YRS OR MORE [facility] [place] [facility] Jan 02, 2021 02:07 PM VA-TOBACCO FORMER USER [facility] [place] [facility] Jan 02, 2021 02:07 PM VA-TOBACCO QUIT 15 YRS OR MORE [facility] [place] [facility] Feb 01, 2020 08:30 AM VA-TOBACCO FORMER USER [facility] [place] [facility] Feb 01, 2020 08:30 AM VA-TOBACCO QUIT 15 YRS OR MORE [facility] [place] [facility] Nov 16, 2018 02:39 PM VA-TOBACCO FORMER USER [place] [facility] [place] [facility] Nov 16, 2018 02:39 PM VA-TOBACCO QUIT 15 YRS OR MORE [place] [facility] Nov 06, 2017 02:22 PM VA-TOBACCO FORMER USER [place] [facility] Nov 06, 2017 02:22 PM VA-TOBACCO QUIT 15 YRS OR MORE [place] [facility] Jan 07, 2017 09:30 AM LIFETIME NON-TOBACCO USER [facility] Jan 08, 2016 09:06 AM QUIT TOBACCO USE > 7 YEARS AGO [facility] Oct 10, 2014 11:16 AM QUIT TOBACCO USE > 7 YEARS AGO . [facility] Advance Directives: All historical and current Section Date Range: From patient's date of to the date document was created. This section includes ALL of a patient's completed or amended [place] Advance and Rescinded Directives. The entries below indicate that a directive exists for the patient, but an actual copy is not included with this document. The data comes from all [place] facilities. Date Advance Directives Provider Source Dec 02, 2019 ADVANCE DIRECTIVE LI ZHAO [facility] Encounter Notes: All associated encounter notes This section contains the clinical notes associated to the Encounter. Date/Time Encounter Note(s) Provider Source Aug 20, 2023 11:26 AM ADDENDUM: LOCAL TITLE: Addendum STANDARD TITLE: ADDENDUM DATE OF NOTE: AUG 20, 2023@11:26:07 ENTRY DATE: AUG 20, 2023@11:26:07 AUTHOR: GLO RUCKER EXP COSIGNER: URGENCY: STATUS: COMPLETED Leaving October 04 for [place], [place] and [place]. Adding PCP for recommendation for addition immunization or titers /es/ GLO RUCKER REGISTERED NURSE Signed: 08/20/2023 11:27 Receipt Acknowledged By: 08/20/2023 16:27 /mary kate/ Cristiano Decker PA-C STAFF PHYSICIAN METAPHYSICS TEACHER === --- Original Document --- 08/20/23 PRIMARY CARE SECURE MESSAGING: ------Original Message ------ Sent: 08/20/2023 07:04 AM ET From: CRISTIANO FRANK [facility] Subject: General:vaccines Traveling overseas late next month. Are there any vaccines that I should get beforehand? How about the Covid booster? Thank you / ------Original Message ------ Sent: 08/20/2023 09:45 AM ET From: GLO RUCKER To: CRISTIANO FRANK Subject: General:vaccines Good morning, Vaccine recommendation based on where in the world you would be traveling to and how soon. Then we can look at your medical records to see if you have had them. Respectfully, Glo Rucker RN ------Original Message ------ Sent: 08/20/2023 10:55 AM ET From: CRISTIANO FRANK [facility]: [facility] Subject: General:vaccines Leaving October 04 for [place] and [place]. Return on October 19 ------Original Message ------ Sent: 08/20/2023 11:23 AM ET From: GLO RUCKER To: CRISTIANO FRANK Subject: General:vaccines I will pass this information along to your provider. Respectfully, Glo Rucker RN /mary kate/ GLO RUCKER REGISTERED NURSE Signed: 08/20/2023 11:23 GLO RUCKER [place]TRL [place] [facility] Aug 20, 2023 10:23 AM PRIMARY CARE SECURE MESSAGING: LOCAL TITLE: PRIMARY CARE SECURE MESSAGING STANDARD TITLE: PRIMARY CARE SECURE MESSAGING DATE OF NOTE: AUG 20, 2023@10:23 ENTRY DATE: AUG 20, 2023@11:23:59 AUTHOR: GLO RUCKER EXP COSIGNER: URGENCY: STATUS: COMPLETED PRIMARY CARE SECURE MESSAGING Has ADDENDA ------Original Message ------ Sent: 08/20/2023 07:04 AM ET From: CRISTIANO FRANK [facility] Subject: General:vaccines Traveling [place] late next month. Are there any vaccines that I should get beforehand? How about the Covid booster? Thank you / ------Original Message ------ Sent: 08/20/2023 09:45 AM ET From: GLO RUCKER To: CRISTIANO FRANK Subject: General:vaccines Good morning, Vaccine recommendation based on where in the world you would be traveling to and how soon. Then we can look at your medical records to see if you have had them. Respectfully, Glo Rucker RN ------Original Message ------ Sent: 08/20/2023 10:55 AM ET From: CRISTIANO FRANK [facility] Subject: General:vaccines Leaving October 04 for [place] and [place]. Return on October 19 ------Original Message ------ Sent: 08/20/2023 11:23 AM ET From: GLO RUCKER To: CRISTIANO FRANK Subject: General:vaccines I will pass this information along to your provider. Respectfully, Glo Rucker RN /mary kate/ GLO RUCKER REGISTERED NURSE Signed: 08/20/2023 11:23 08/20/2023 ADDENDUM STATUS: COMPLETED Leaving October 04 for [place] and [place]. Adding PCP for recommendation for addition immunization or titers /ruddy RUCKER REGISTERED NURSE Signed: 08/20/2023 11:27 Receipt Acknowledged By: 08/20/2023 16:27 /mary kate/ Cristiano Decker PA-C STAFF PHYSICIAN METAPHYSICS TEACHER 08/20/2023 ADDENDUM STATUS: COMPLETED His chart shows that he is up to date on routine immunizations. I believe the countries he is going to do not require additional immunizations. Please suggest that he check at cdc.gov/travel for any CDC guidance on travel to those countries. make sure he has enough meds to last a few weeks past his return date, early fills authorized if needed. Carry on all meds in original containers, not in checked bags. Give him copy of my last note, recent labs and his shots to take in case he becomes ill/injured. Have a great trip. /mary kate/ Cristiano Decker PA-C STAFF PHYSICIAN METAPHYSICS TEACHER Signed: 08/20/2023 16:33 GLO RUCKER CNTRL WSTRN [facility]
--- OUTSIDE RECORDS SUMMARY | 2024-03-02 08:47 | XMS_ITS ---
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 Date/Time Encounter Type Encounter Description Reason Provider Source Oct 25, 2023 11:00 AM Outpatient Encounter TELEPHONE TRIAGE ICD-10-CM U07.1 COVID-19 FERCHO LION E Encounter Template Text not used by [place] Assessments - Encounter Diagnoses This section includes the primary and secondary diagnoses documented for the Encounter. Date/Time Primary/Secondary Diagnosis Diagnosis Name Provider Source Oct 25, 2023 11:00 AM PRIMARY COVID-19 FERCHO LION [facility] Plan of Treatment: Future Appointments (+ 6 months) and Future Tests (+/- 45 days) The Plan of Treatment section includes future care activities for the [facility] [place] [facility] This section includes future appointments [...] 01, 2024 08:30 AM AMBULATORY - MEDICINE [facility] Jan 07, 2024 09:00 AM [facility] Jan 18, 2024 08:00 AM [facility] Jan 20, 2024 10:30 AM [facility] Feb 18, 2024 09:00 AM [facility] [place] [facility] Mar 02, 2024 08:45 AM AMBULATORY - MEDICINE [facility] Social History: Smoking Status (Most current) and [...] 29, 2023 09:44 AM VA-TOBACCO [facility] Tobacco Use History This section includes a history of the smoking, or tobacco-related health factors, that were collected on or before the date of the Encounter. The data comes from the [place] facility where the Encounter took place. Date/Time Smoking Status/Tobacco Use Comment F acility Jan 29, 2023 09:44 AM VA-TOBACCO QUIT 15 YRS OR MORE [facility] [place] [facility] Dec 13, 2021 11:25 AM VA-TOBACCO FORMER USER [facility] [place] [facility] Dec 13, 2021 11:25 AM VA-TOBACCO QUIT 15 YRS OR MORE [facility] [place] [facility] Jan 02, 2021 02:07 PM VA-TOBACCO FORMER USER [facility] [place] [facility] Jan 02, 2021 02:07 PM VA-TOBACCO QUIT 15 YRS OR MORE [facility] [place] [facility] Feb 01, 2020 08:30 AM VA-TOBACCO FORMER USER [facility] [place] [facility] Feb 01, 2020 08:30 AM VA-TOBACCO QUIT 15 YRS OR MORE [facility] [place] [facility] Nov 16, 2018 02:39 PM VA-TOBACCO FORMER USER [facility] [place] [facility] Nov 16, 2018 02:39 PM VA-TOBACCO QUIT 15 YRS OR MORE [facility] [place] [facility] Nov 06, 2017 02:22 PM VA-TOBACCO FORMER USER [facility] [place] [facility] Nov 06, 2017 02:22 PM VA-TOBACCO QUIT 15 YRS OR MORE [facility] [place] [facility] Jan 07, 2017 09:30 AM LIFETIME NON-TOBACCO USER [facility] [place] [facility] Jan 08, 2016 09:06 AM QUIT TOBACCO USE > 7 YEARS AGO [facility] [place] [facility] Oct 10, 2014 11:16 AM QUIT TOBACCO USE > 7 YEARS AGO . [facility] [place] [facility] Advance Directives: All historical and current Section [...] DIRECTIVE LI ZHAO [place] [facility] [place] [facility] Encounter Notes: All associated encounter notes This section contains the clinical notes associated to the Encounter. Date/Time Encounter Note(s) Provider Source Oct 25, 2023 11:07 AM TELEHEALTH NOTE: LOCAL TITLE: TELE EMERGENCY CARE NOTE STANDARD TITLE: TELEHEALTH NOTE DATE OF NOTE: OCT 25, 2023@11:07 ENTRY DATE: OCT 25, 2023@11:07:55 AUTHOR: FERCHO LION COSIGNER: URGENCY: STATUS: COMPLETED This is a tele-emergency care visit to address acute/urgent issues. Definitive care on chronic medical issues will be deferred to routine Primary Care appointment/provider. Consult Origin: Referral from the Clinical Contact Center/Call Center Type of Visit: Phone Visit: Visit conducted by telephone. Location/emergency number confirmed. Emergency contact information was obtained as follows: Patient's current address [address] [place], [place] [address] Patient's Phone Number:PATIENT PHONE - PHONE NUMBER [CELLULAR] - Primary NOK: ELLEN KIM Relation: EXTENDED FAMILY M [address] Phone: [place], [place] [phone] Subjective: T2T Covid + home test 10/25/23 Covid symptom onset: 10/21/23 Last Covid vaccine: 02/01/2020 Mr. Kim is a 78-year-old male who presents with sinus congestion and tested + for Covid yesterday. He reports that his symptoms began suddenly and have progressively worsened. General: + fever - chills, + generalized weakness, + body aches, + fatigue, - loss of taste, + - loss of smell. HEENT: + sore throat, + PND, + rhinitis,+ sinus congestion, + headaches, Respiratory: - resting shortness of breath, + cough with yellow phlegm, - wheezing. Cardiovascular: - chest pain, - palpitations. - exertional dyspnea Gastrointestinal: - nausea, - vomiting, - diarrhea, Stated that he recently came back from an overseas trip to [place]. Patient was evaluated by: Medical Provider (SANDRA) VISN 1 Clinical Contact Center MP has placed a ID Pharm E-consult for review. Consult sent to pharmacy for completion of pharmacy work for the JACI PRADO, ensuring patient information is sent with the medication and documenting with the V1 Test to Treat Pharmacy template. The patient has confirmed that they reported a positive home COVID-19 test within the last 5 days from a verified FDA approved list to the [facility] CT RN. The patient was informed those with COVID-19 symptoms, and high-risk conditions, oral (by mouth) at home treatment can lower risk of severe symptoms or needing to be hospitalized. Treatments need to be started within five days from when you first started having symptoms and could be picked up at a local [facility] or mailed to them. Provider asked the patient if they would be interested in treatment if it's indicated and safe for the patients based on medical history and medications that they take. Patient replied that they are interested and the provider has completed a comprehensive review of the patient's medication list for other drugs that may interact, and require adjustments to therapy or increased monitoring as outlined in the Fact Sheet for Health Care Providers, or by using a resource such as the [employer] COVID-19 during interactions site: [employer]-19 Interactions or [employer]. Patient was counseled about Paxlovid and that it is contraindicated with drugs that are highly dependent on CYP3A for clearance and for which elevated concentrations are associated with serious and/or life-threatening reactions. Patient confirms they are NOT currently taking any of the following medications OR if taking, is unable to safely hold therapy during the duration of treatment with Paxlovid: -Lihkl-3-numrwdwqzekrov antagonist: Alfuzosin -Analgesics: Pethidine, Piroxicam, Propoxyphene -Antianginal: Ranolazine -Antiarrhythmic: Amiodarone, Dronedarone, Flecainide, Propafenone, Quinidine -Anti-gout: Colchicine -Antipsychotics: Lurasidone, Pimozide, Clozapine -Ergot derivatives: Dihydroergotamine, Ergotamine, Methylergonovine -HMG-CoA reductase inhibitors: Lovastatin, Simvastatin -PDE5 inhibitor: Sildenafil (Revatior) when used for pulmonary arterial hypertension (PAH) -Sedative/hypnotics: Triazolam, oral Midazolam Paxlovid is contraindicated with drugs that are potent CYP3A inducers where significantly reduced Nirmatrelvir or Ritonavir plasma concentrations may be associated with the potential for loss of virologic response and possible resistance. Paxlovid cannot be started immediately after discontinuation of any of the following medications due to the delayed offset of the recently discontinued CYP3A inducer. Patient is not currently taking any of the following medications: -Anticancer drugs: Apalutamide -Anticonvulsant: Carbamazepine, Phenobarbital, Phenytoin -Antimycrobacterials: Rifampin -Herbal products: [place]'s Wort (hypericum perforatum) A drug-drug interaction was identified but the patient is able to safely hold the interacting medication(s) for the duration of therapy with Paxlovid. This patient has met ALL of the below criteria: 1. Patient has a Home Test -confirmed mild to moderate COVID-19. Date test completed: October 23, 2023 2. Provider believes the patient does not require hospitalization due to severe or critical COVID-19. 3. Patient is within 5 days of symptom onset, date of onset Oct. 4. Patient does NOT have severe renal impairment (eGFR < 30 mL/min) OR severe hepatic impairment (Child-Asif Class C) and has laboratory work completed within 6 month time period based on provider judgement. If Patient has a renal or hepatic diagnosis laboratory work completed within 30 days based on provider judgement. 5. Patient falls into high-risk for progression to severe disease (including hospitalization and ) as defined by the CDC . Other medical conditions or factors (for example, race or ethnicity) may also place individual at high risk for progression to severe COVID-19 and authorization is not limited to the medical conditions or factors as defined by the CDC People with Certain Medical Conditions list. Lab review done: ALT/SGPT;1;1Y No data available for: ZZALT/SGPT,[facility] AST/SGOT;1;1Y No data available for: ZZAST/SGOT,[facility] UREA NITROGEN Collection DT Specimen Test Name Result Units Ref Range 09/10/2023 07:57 SERUM UREA NITROGEN 18 mg/dL 7 - 25 CREATININE;1;1Y Collection DT Specimen Test Name Result Units Ref Range 09/10/2023 07:57 SERUM CREATININE, Serum 0.98 mg/dL 0.50 - 1.40 EGFR Collection DT Specimen Test Name Result Units Ref Range 09/10/2023 07:57 SERUM eGFR(CKD-EPI 2020 79 mL/min Ref: >=60 SODIUM Collection DT Specimen Test Name Result Units Ref Range 09/10/2023 07:57 SERUM SODIUM 136 mmol/L 135 - 145 POTASSIUM Collection DT Specimen Test Name Result Units Ref Range 09/10/2023 07:57 SERUM POTASSIUM 4.1 mmol/L 3.5 - 5.0 CHLORIDE Collection DT Specimen Test Name Result Units Ref Range 09/10/2023 07:57 SERUM CHLORIDE 100 mmol/L 100 - 110 CO2 Collection DT Specimen Test Name Result Units Ref Range 09/10/2023 07:57 SERUM CO2 27 mEq/L 20 - 30 CALCIUM No data available for: CALCIUM FOR PTH ALBUMIN Collection DT Specimen Test Name Result Units Ref Range 09/10/2023 07:57 SERUM ALBUMIN 4.0 g/dL 3.5 - 5.0 Paxlovid Dosage: eGFR >/= 60mL/min (300 mg Nirmatrelvir AND 100 mg Ritonavir) PO twice daily x 5 days Disposition: -Patient and or Caregiver is consenting to Paxlovid use and enrolled per [facility] protocol for COVID treatment follow up. -Patient told to make sure to call us if you have worsening symptoms from COVID-19. -Pt counseled regarding whether they develop severe symptoms, like trouble breathing, to please seek care at the nearest emergency department right away. There were told it's also important that they call to let us know if they have any side effects (contact info). The patient has been enrolled in the follow up COVID -19 treatment program per [facility] protocol. ACTIVE PROBLEMS: Code Description Z77.29 Exposure to potentially hazardous substance ([facility] [id number]) M62.08 Diastasis recti ([facility] [id number]) E11.9 Type 2 diabetes mellitus without complication ([facility] [id number]) L40.9 Psoriasis ([facility] [id number]) B00.9 Herpes simplex ([facility] [id number]) Z80.9 Family history of malignant melanoma ([facility] [id number]) 389.9 Hearing Loss (ICD-9-CM 389.9) ALLERGIES/ADR: VALTREX Active Outpatient Medications (including Supplies): ACYCLOVIR 400MG TAB TAKE ONE TABLET BY MOUTH THREE TIMES ACTIVE DAILY NEEDED CETIRIZINE HCL 10MG TAB TAKE ONE TABLET BY MOUTH ONCE ACTIVE (S) DAILY NEEDED FOR ALLERGIES CHOLECALCIF 25MCG (D3-1,000UNIT) TAB TAKE ONE TABLET BY ACTIVE (S) MOUTH ONCE DAILY FOR VITAMIN SUPPLEMENTATION FLUOCINONIDE 0.05% TOP SOLN APPLY SMALL AMOUNT TOPICALLY ACTIVE ONCE DAILY NEEDED FLUTICASONE PROP 50MCG 120D NASAL INHL INSTILL 1 SPRAY ACTIVE INTO EACH NOSTRIL TWICE DAILY NEEDED HYDROCHLOROTHIAZIDE 25MG TAB TAKE ONE TABLET BY MOUTH ACTIVE EVERY MORNING TO PREVENT FLUID/CONTROL BLOOD PRESSURE IBUPROFEN 400MG TAB TAKE ONE TABLET BY MOUTH TWICE DAILY ACTIVE NEEDED TAKE WITH FOOD; FOR PAIN/INFLAMMATION/SWELLING KETOCONAZOLE 2% SHAMPOO SHAMPOO SMALL AMOUNT TOPICALLY ACTIVE EVERY 3 DAYS NEEDED LOSARTAN 100MG TAB TAKE ONE TABLET BY MOUTH ONCE DAILY FOR ACTIVE BLOOD PRESSURE/HEART METFORMIN HCL 1000MG TAB TAKE ONE TABLET BY MOUTH ONCE ACTIVE (S) DAILY FOR DIABETES OMEPRAZOLE 20MG EC CAP TAKE ONE CAPSULE BY MOUTH EVERY ACTIVE MORNING 30 MINUTES BEFORE BREAKFAST FOR GASTROESOPHAGEAL REFLUX DISEASE SIMVASTATIN 80MG TAB TAKE ONE-HALF TABLET BY MOUTH AT ACTIVE (S) BEDTIME FOR CHOLESTEROL TACROLIMUS 0.03% TOP OINT APPLY THIN LAYER TOPICALLY TWICE ACTIVE DAILY NEEDED TAMSULOSIN HCL 0.4MG CAP TAKE ONE CAPSULE BY MOUTH AT ACTIVE BEDTIME Current medications reviewed with patient/caregiver and reconciliation of medications related to today's visit completed, including non-VA medications and discrepancies, if identified, were addressed. Medication changes and the importance of medication management were reviewed with the patient/caregiver today based on individual needs. Patient/caregiver acknowledged understanding of instructions as stated. Objective: As noted above Reason for Referral: Ear/Nose/Throat/Respiratory Assessment/Impression: Covid 19 T2T Plan: Discussed Covid treatment with Paxlovid: Paxlovid is an antiviral medication used to treat COVID-19 to help decrease symptoms or avoid severe illness in certain patients. Paxlovid works by stopping the virus that causes COVID-19 (SARS-CoV-2) from multiplying. Paxlovid should be taken as soon as possible after diagnosis of COVID-19. Paxlovid contains two medications called nirmatrelvir (pink tablets) and ritonavir (white tablets). Recommended Dosage: The recommended dosage for PAXLOVID is 300 mg nirmatrelvir (two 150 mg tablets) with 100 mg ritonavir (one 100 mg tablet) with all 3 tablets taken together orally twice daily for 5 days. In patients with moderate renal impairment (eGFR =30 to <60 mL/min), the dosage of PAXLOVID is 150 mg nirmatrelvir (one 150 mg tablet) and 100 mg ritonavir (one 100 mg tablet) with both tablets taken together twice daily for 5 days. PAXLOVID is not recommended in patients with severe renal impairment (eGFR <30 mL/min) Patient denies having any of the following contraindications: - kidney or liver problems, including hepatitis. - have Human Immunodeficiency Virus 1 (HIV-1) infection. PAXLOVID may lead to some HIV-1 medicines not working as well in the future. - , plan to become , , or plan to breastfeed. - allergic to nirmatrelvir, ritonavir, or any of the ingredients in PAXLOVID. * Discussed Paxlovid Side Effects and to discontinue immediately and contact provider if these occur symptoms of an allergic reaction: o skin rash, hives, blisters or peeling skin o painful sores or ulcers in the mouth, nose, throat ,or genital area o swelling of the mouth, lips, tongue, or face o trouble swallowing or breathing o throat tightness o hoarseness o headache o vomiting o abdominal pain o nausea o high blood pressure * signs and symptoms of liver problems during treatment with PAXLOVID: o loss of appetite o yellowing of your skin and the whites of your eyes o dark-colored urine o pale-colored stools o itchy skin o stomach-area (abdominal) pain The most common side effects: diarrhea, headache, vomiting, stomach pain, nausea, or high blood pressure, possible rebound covid symptoms. Medications: Prescribed Paxlovid (nirmatrelvir 300 mg with ritonavir 100 mg) orally twice daily for 5 days. Mucinex ER 1200 mg PO BID x 5 days with full glass of water. Ipratropium nasal spray 0.3% 2 sprays each nostril BID x & days. 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 Symptomatic Management: Acetaminophen 500 mg every 6 hours as needed for fever and body aches. Ensure adequate hydration and rest. Monitoring: Advised patient to monitor symptoms, particularly respiratory status, and seek medical attention if there is any worsening of shortness of breath or other concerning symptoms. Education: Provided education on Paxlovid: Paxlovid is an antiviral medication used to treat uill-li-xjptjdgy COVID-19 in patients at high risk of progressing to severe disease. It consists of two medications: nirmatrelvir, which inhibits viral replication, and ritonavir, which boosts the levels of nirmatrelvir. Common side effects include altered taste, diarrhea, muscle aches, and high blood pressure. Serious side effects are rare but can include liver problems and allergic reactions. Rebound covid infection symptoms can occur. It is crucial to complete the full 5-day course even if symptoms improve early. Avoid certain medications and supplements that can interact with Paxlovid. Emphasized the importance of isolation and infection control measures to prevent the spread of COVID-19 to others. Discussed reason for taking med, how to take, when to take, precautions, benefits and side effects. Issue resolved with Tele Urgent Care appointment Pact team notified to follow up with patient. Patient verbalizes understanding of the care plan Time spent in telephone/video visit:35 min /mary kate/ FERCHO LION [id number] Signed: 10/25/2023 17:07 Receipt Acknowledged By: 10/26/2023 08:16 /mary kate/ RAMIRO SWARTZ, RN REGISTERED NURSE 10/25/2023 18:14 /mary kate/ Cristiano Decker PA-C STAFF PHYSICIAN [employer]IPMENT MECHANIC [facility]
--- OUTSIDE RECORDS SUMMARY | 2024-03-02 08:48 | XMS_ITS ---
Author Name [facility] Address [address] [place] [address] Care Team Providers Care Ditch Worker Name Role Phone DALLIN LUCERO Primary Care [...] PART A Mar 16, 2010 PART A [id number] LOWELL FRANK JR PATIENT MEDICARE (WNR) MEDICARE (M) PART A Mar 16, 2010 PART A [id number] LOWELL FRANK JR PATIENT MEDICARE (WNR) MEDICARE (M) PART A Mar 16, 2010 PART A [id number] LOWELL FRANK JR PATIENT Selected Encounter This section includes the information on record at NH for the Encounter. Date/Time Encounter Type Encounter Description Reason Provider Source Jan 07, 2024 09:00 AM OFFICE O/P EST HI 40 MIN DERMATOLOGY ICD-10-CM L40.9 Psoriasis, unspecified DANITZA MEDINA IHE Encounter Template Text not used by NH Assessments - Encounter Diagnoses This section includes the primary and secondary diagnoses documented for the Encounter. Date/Time Primary/Secondary Diagnosis Diagnosis Name Provider Source Jan 07, 2024 09:53 AM PRIMARY Psoriasis, unspecified RASTA MEDINAT JES [facility] [place] [facility] Jan 07, 2024 09:53 AM SECONDARY Actinic keratosis RASTA MEDINAT JES [facility] [place] [facility] Jan 07, 2024 09:53 AM SECONDARY Epidermal cyst CAROLDANITZA JES [facility] [place] [facility] Jan 07, 2024 09:53 AM SECONDARY Other seborrheic dermatitis RASTA MEDINAT JES [facility] [place] [facility] Jan 07, 2024 09:53 AM SECONDARY Other seborrheic keratosis RASTA MEDINAT JES [facility] [place] [facility] Jan 07, 2024 09:53 AM SECONDARY Xerosis cutis RASTA MEDINAT JES [facility] [place] [facility] Plan of Treatment: Future Appointments (+ 6 months) and Future Tests (+/- 45 days) The Plan of Treatment section includes future care activities for the [facility] This section includes future appointments and future orders which are active, pending or scheduled. Future Appointments This section includes appointments that were scheduled to occur 6 months from the date of the Encounter, up to a maximum of 20 appointments. The data comes from all [place] treatment facilities. Appointment Date/Time Appointment Type Appointme nt Facility Name Jan 18, 2024 08:00 AM AMBULATORY - REHAB MEDICIN E [facility] [place] [facility] Jan 20, 2024 10:30 AM AMBULATORY - MEDICINE [facility] [place] [facility] Feb 18, 2024 09:00 AM AMBULATORY - REHAB MEDICIN E [facility] [place] [facility] Mar 02, 2024 08:45 AM AMBULATORY - MEDICINE [facility] [place] [facility] Jul 05, 2024 08:00 AM AMBULATORY - MEDICINE [facility] [place] [facility] Active, Pending, and Scheduled Orders This section includes a listing of several types of active, pending, and scheduled orders, including clinic medications orders, diagnostic test orders, procedure orders and consult orders; where the start date of the order is 45 days before the date of the Encounter or 45 days after the date of theEncounter. The data comes from all [place] treatment facilities. Test Date/Time Test Type Test Details Facility Name Feb 12, 2024 03:06 PM Consult Order [facility] Cons Hot Dip Plating Supervisor's Choice [facility] Lab Results: +/- 30 days of the encounter This section includes the Chemistry and Hematology Lab Results on record with NH for the patient. Radiology Reports and Pathology Reports are provided separately, in subsequent sections. Lab Results This section contains the Chemistry/Hematology Results that were resulted 30 days before or 30 daysafter the date of the Encounter. Date/Time Source Result Type Result - Unit Interpretation Reference Range Comment Dec 15, 2023 07:44 AM [facility] LIPID PANEL FASTING Specimen Type: SERUM No comment entered. Ordering Provider: TANMAY LUCERO Report Released Date/Time: Oct 01, 2023 10:36 AM Reporting Lab: [address] [address] Performing Lab: [address] [address] CHOLESTEROL 178 mg/dL TRIGLYCERIDE 148 mg/dL 0-150 LDL calculated 92 mg/dL 0-129 CHOL/HDL 3.2 HDL CHOLESTEROL 56 mg/dL 40-60 Dec 15, 2023 07:44 AM [facility] HEMOGLOBIN A1C PANEL Specimen Type: BLOOD Comment: Values obtained from A1C measurements can vary. For atypical A1C assays, a reported value of 7.0 could actually be between 6.72 and 7.28 if measured by a reference method. A reported value of 9.0 could actually be between 8.73 and 9.27. Ref: http://www.ngs p.org/CAPdata. asp Ordering Provider: TANMAY LUCERO Report Released Date/Time: Oct 01, 2023 10:36 AM Reporting Lab: [address] [address] [facility]forming [facility]: [facility] [address] [facility] [address] HEMOGLOBIN A1C 6.3 H 4.0-5.6 Dec 15, 2023 07:44 AM [facility] LIVER FUNCTION Specimen Type: SERUM No comment entered. Ordering Provider: ATNMAY LUCERO F Report Released Date/Time: Oct 01, 2023 10:36 AM Reporting Lab: [facility] [address] [facility] [address] Performing Lab: [address] [address] PROTEIN,TOTAL 6.7 g/dL 6.0-8.3 ALBUMIN 4.0 g/dL 3.5-5.0 ALKALINE PHOSPHATASE 55 U/L 40-150 AST 21 U/L 5-34 ALT 25 U/L BILIRUBIN, TOTAL 0.8 mg/dL 0.2-1.2 Dec 15, 2023 07:44 AM [facility] MICROALBUMIN CREATININE RATIO PANEL Specimen Type: URINE No comment entered. Ordering Provider: TANMAY LUCERO F Report Released Date/Time: Oct 01, 2023 10:36 AM Reporting [facility]: [facility] [address] [address] Performing Lab: [address] [address] MICROALBUMIN/C REATININE RATIO 9.0 mg/g 0-29.9 MICROALBUMIN,Q UANTITATIVE 1.2 mg/dL RR UNAVAIL CREATININE URINE 133.78 mg/dL Dec 15, 2023 07:44 AM [facility] BASIC METABOLIC PANEL (fasting) Specimen Type: SERUM No comment entered. Ordering Provider: TANMAY LUCERO F Report Released Date/Time: Oct 01, 2023 10:36 AM Reporting Lab: [facility] [address] [address] Performing Lab: [address] [address] UREA NITROGEN 16 mg/dL 7-25 GLUCOSE 127 mg/dL H 65-100 SODIUM 137 mmol/L 135-145 POTASSIUM 4.2 mmol/L 3.5-5.0 CHLORIDE 100 mmol/L 100-110 CO2 26 meq/L 20-30 CREATININE, Serum 1.00 mg/dL 0.50-1.40 eGFR(CKD-EPI 2020) 77 mL/min >60 Social History: Smoking Status (Most current) and Tobacco Use (All prior to encounter date) This section includes the most current, and the historical, smoking and tobacco- related health factors from the NH facility where the Encounter took place. Current Smoking Status This section includes the most current smoking, or tobacco-related health factor, from the NH facility where the Encounter took place. Date/Time Current Smoking Status Comment Facil ity Jan 01, 2024 08:30 AM VA-TOBACCO QUIT 15 YRS OR MORE [facility] [place] [facility] Tobacco Use History This section includes a history of the smoking, or tobacco-related health factors, that were collected on or before the date of the Encounter. The data comes from the NH facility where the Encounter took place. Date/Time Smoking Status/Tobacco Use Comment F acility Jan 01, 2024 08:30 AM VA-TOBACCO QUIT 15 YRS OR MORE [facility] [place] [facility] Jan 29, 2023 09:44 AM VA-TOBACCO FORMER USER [facility] [place] [facility] Jan 29, 2023 09:44 AM VA-TOBACCO QUIT 15 YRS OR MORE [facility] [place] [facility] Dec 13, 2021 11:25 AM VA-TOBACCO FORMER USER [facility] [place] [facility] Dec 13, 2021 11:25 AM VA-TOBACCO QUIT 15 YRS OR MORE [facility] [place] [facility] Jan 02, 2021 02:07 PM VA-TOBACCO FORMER USER [facility] [place] [facility] Jan 02, 2021 02:07 PM VA-TOBACCO QUIT 15 YRS OR MORE [facility] [place] [facility] Feb 01, 2020 08:30 AM VA-TOBACCO FORMER USER [facility] [place] [facility] Feb 01, 2020 08:30 AM VA-TOBACCO QUIT 15 YRS OR MORE [facility] [place] [facility] Nov 16, 2018 02:39 PM [facility] Nov 16, 2018 02:39 PM VA-TOBACCO QUIT [facility] YRS OR [facility] Nov 06, 2017 02:22 PM VA-TOBACCO [facility] Nov 06, 2017 02:22 PM VA-TOBACCO QUIT 15 YRS OR MORE [facility] Jan 07, 2017 09:30 AM LIFETIME NON-TOBACCO USER [facility] Jan 08, 2016 09:06 AM QUIT TOBACCO USE > 7 YEARS AGO [facility] Oct 10, 2014 11:16 AM QUIT TOBACCO USE > 7 YEARS AGO . [facility] Advance Directives: All historical and current Section Date Range: From patient's date of to the date document was created. This section includes ALL of a patient's completed or amended [place] Advance and Rescinded Directives. The entries below indicate that a directive exists for the patient, but an actual copy is not included with this document. The data comes from all [place] facilities. Date Advance Directives Provider Source Dec 02, 2019 ADVANCE DIRECTIVE LI ZHAO [facility] Encounter Notes: All associated encounter notes This section contains the clinical notes associated to the Encounter. Date/Time Encounter Note(s) Provider Source Jan 07, 2024 09:11 AM DERMATOLOGY OUTPATIENT NOTE: LOCAL TITLE: DERMATOLOGY CLINIC NOTE STANDARD TITLE: DERMATOLOGY OUTPATIENT NOTE DATE OF NOTE: JAN 07, 2024@09:11 ENTRY DATE: JAN 07, 2024@09:11:28 AUTHOR: NINA MEDINA EXP COSIGNER: URGENCY: STATUS: COMPLETED JAN 07, 2024 DALLIN FRANK JR Mar 78 PATIENT PHONE - Patient here for FOLLOW UP CHIEF COMPLAINT: PsO, AKs HPI: Reviewed records from last Dermatology visit: 03/24/23; PsO controlled with topicals; clobetasol, fluocinonide, tacrolimus, AKs s/p LN2 on L upper abd reports PsO is well controlled with topicals Has a spot on L lateral forhead Also with a cyst on upper back Has irritated skin behind ears Currently using: desonide on face prn keto shampoo tac to groin fluconid scalp betasmethasone not on groin/face denies any other new/changing/bleeding/non-hea ling lesions. REVIEW OF SYSTEMS: Constitutional-neg Skin/Hair/Nails-see HPI DermHx: -Denies h/o MM or NMSC -PsO, reports onset ~2013 Reviewed in [place]: 01/07/22 [facility] [place]; 'lumbar spine, bilat hips and bilat hand xrays reveal OA, no evidence of PsA. No dactylitis on exam, no nail pitting, normal imflammatory markers. Advised PT at NH. Continue topicals.' Family Hx: Reports father with h/o MM PastMedHx: Reviewed. History of Sun Exposure/Sunburns: +Yes, blistering chua in the past. Denies use of tanning beds. Active Outpatient Medications (including Supplies): Active Outpatient Medications Status 1) ACYCLOVIR 400MG TAB TAKE ONE TABLET BY MOUTH THREE ACTIVE TIMES DAILY NEEDED 2) CETIRIZINE HCL 10MG TAB TAKE ONE TABLET BY MOUTH ONCE ACTIVE (S) DAILY NEEDED FOR ALLERGIES 3) CHOLECALCIF 25MCG (D3-1,000UNIT) TAB TAKE ONE TABLET ACTIVE (S) BY MOUTH ONCE DAILY FOR VITAMIN SUPPLEMENTATION 4) FLUOCINONIDE 0.05% TOP SOLN APPLY SMALL AMOUNT ACTIVE TOPICALLY ONCE DAILY NEEDED 5) FLUTICASONE PROP 50MCG 120D NASAL INHL INSTILL 1 ACTIVE SPRAY INTO EACH NOSTRIL TWICE DAILY NEEDED 6) HYDROCHLOROTHIAZIDE 25MG TAB TAKE ONE TABLET BY MOUTH ACTIVE (S) EVERY MORNING TO PREVENT FLUID/CONTROL BLOOD PRESSURE 7) IBUPROFEN 400MG TAB TAKE ONE TABLET BY MOUTH TWICE ACTIVE DAILY NEEDED TAKE WITH FOOD; FOR PAIN/INFLAMMATION/SWELLING 8) LOSARTAN 100MG TAB TAKE ONE TABLET BY MOUTH ONCE ACTIVE DAILY FOR BLOOD PRESSURE/HEART 9) METFORMIN HCL 1000MG TAB TAKE ONE TABLET BY MOUTH ACTIVE ONCE DAILY FOR DIABETES 10) OMEPRAZOLE 20MG EC CAP TAKE ONE CAPSULE BY MOUTH ACTIVE EVERY MORNING 30 MINUTES BEFORE BREAKFAST FOR GASTROESOPHAGEAL REFLUX DISEASE 11) SIMVASTATIN 80MG TAB TAKE ONE-HALF TABLET BY MOUTH AT ACTIVE BEDTIME FOR CHOLESTEROL 12) TAMSULOSIN HCL 0.4MG CAP TAKE ONE CAPSULE BY MOUTH AT ACTIVE (S) BEDTIME PHYSICAL EXAM: [place] Skintype II General-AxOx3, NAD, pleasant, breathing unlabored, speech clear Cutaneous examination, as permitted by the patient, including scalp, face, eyes, ears, neck, chest, back, abdomen, arms, hands, fingers Pertinent findings per below: -L upper forehead with a 1cm thin erythematous gritty papules -Generalized xerosis -no noted psoriatic nail changes -Mid upper back with a 1 cm flesh tone fluctuant nodule with a central black punctum Diagnosis/Plan: #Psoriasis -Type: plaque -Currently with 1% [...] cause flushing after ingestion of alcohol. -CONTINUE clobetasol, betamethasone or fluocinonide as prescribed. AVOID GROIN AND FACE -CONTINUE topical desonide 0.05% cream BID PRN -Side effects including but not limited to thinning of the skin (atrophy), lightening (hypopigmentation), increased appearance of superficial blood vessels (telangiectasias) and stretch monte discussed. -Advised to contact office is psoriasis worsens or fails to improve despite several months of treatment -Needs renewals of all Rxs #Actinic Keratosis: - educated on relationship to squamous cell carcinoma. -Treatment options discussed. -Liquid nitrogen cryotherapy performed as a destructive method. -Liquid nitrogen (2 cycles x 5-8sec) x #1 lesions performed. -Side effects including but not limited to redness, crusting, swelling, blistering, hypopigmentation and scarring discussed. -Photoprotection discussed. #Seborrheic keratoses -Benign, reassured. #Lj Derm -CONTINUE topical ketoconazole 2% shampoo as directed. Rx renewed per requst #Xerosis -Advised liberal emollients #Epidermal Inclusion Cyst -Location: Mid upper back -Due to discomfort, itch, irritation, intervention requested -Verbal concent obtained ==Extraction Procedure== -Areas cleansed with alcohol prep pads -A 30g needle was used to puncture the debris and also circumvent the follicular opening to ease the extraction -Gentle lateral pressure placed upon open comedones with immediate release of brown and prabhakar creamy contents -No bleeding - tolerated procedure well -Wound care discussed RTC 1 yr, sooner PRN * [place] educated to RTC andrew if any new, changing, symptomatic lesions. * Education on sun protection and avoidance strategies was provided. * Differential diagnosis, prescription options and risks/benefits were discussed with the patient, who consented to treatment plan. * consented to photography for documentation if indicated. * A dermatoscope was used during the exam. * NUB = Neoplasm of Uncertain Behavior of Skin * NMSC = Nonmelanoma Skin Cancer * AK = Actinic Keratosis ------TIME ESTIMATION To include but not limied to: -Review of medical records -Time spent with patient including obtaining history, physical exam, shared decision making, procedures and counseling -Post visit documentation; HPI and physical exam findings, clinical researching, medical decision making, medication and lab ordering Total estimated time = 50 min ---- Medication Reconciliation: Outpatient: Has the patient been taking medications as documented in the EMLR? YES: The patient has been taking medications as documented in the EMLR. Essential Medication List for Review used to complete this medication reconciliation. INCLUDED IN THIS LIST: Alphabetical list of active outpatient prescriptions dispensed from this [facility] (local) and dispensed from another NH or DoD facility (remote) as well as [...] Remote Allergy/ADR Data available for this patient [facility] [place] Med Recon NoGlossary (Tool #1) INCLUDED IN THIS LIST: Alphabetical list of active outpatient prescriptions dispensed from this NH (local) and dispensed from another NH or DoD facility (remote) as well as [...] the patient into personal health records (i.e. [facility]) are NOT included in this list. Non-VA medications documented outside this NH, remote inpatient orders (regardless of status) and remote clinic medications are NOT included in this list. The patient and provider must always discuss medications the patient is taking, regardless of where the medication was dispensed or obtained. OUTPT ACYCLOVIR 400MG TAB (Status = Discontinued) TAKE ONE TABLET BY MOUTH THREE TIMES DAILY NEEDED Rx# [id number] Last Released: 08/28/23 Qty/Days Supply: Rx Expiration Date: 02/07/24 Refills Remainin OUTPT ACYCLOVIR 400MG TAB (Status = Active) TAKE ONE TABLET BY MOUTH THREE TIMES DAILY NEEDED Rx# [id number] Last Released: 01/04/24 Qty/Days Supply: 270 Rx Expiration Date: 01/01/25 Refills Remainin OUTPT CETIRIZINE HCL 10MG TAB (Status = Active/Suspended) TAKE ONE TABLET BY MOUTH ONCE DAILY NEEDED FOR ALLERGIES Rx# [id number] Last Released: 11/03/23 Qty/Days Supply: Rx Expiration Date: 10/01/24 Refills Remainin OUTPT CHOLECALCIF 25MCG (D3-1,000UNIT) TAB (Status = Active/Suspended) TAKE ONE TABLET BY MOUTH ONCE DAILY FOR VITAMIN SUPPLEMENTATION Rx# [id number] Last Released: 11/03/23 Qty/Days Supply: Rx Expiration Date: 10/01/24 Refills Remainin OUTPT FLUOCINONIDE 0.05% TOP SOLN (Status = Active) APPLY SMALL AMOUNT TOPICALLY ONCE DAILY NEEDED Rx# [id number] Last Released: 09/25/23 Qty/Days Supply: 60 Rx Expiration Date: 06/24/24 Refills Remainin OUTPT FLUTICASONE PROP 50MCG 120D NASAL INHL (Status = Active) INSTILL 1 SPRAY INTO EACH NOSTRIL TWICE DAILY NEEDED Rx# [id number] Last Released: 10/02/23 Qty/Days Supply: Rx Expiration Date: 10/01/24 Refills Remainin Indication: FOR NASAL IRRITATION/INFLAMMATION OUTPT GOV-PAXLOVID [id number] TAB PKT 3 (Status = ) TAKE 2 TABLETS NIRMATRELVIR AND 1 TABLET RITONAVIR BY MOUTH TWICE DAILY FOR COVID-19 Rx# [id number] Last Released: 10/26/23 Qty/Days Supply: 30/ Rx Expiration Date: 11/24/23 Refills Remainin Indication: FOR COVID-19 OUTPT GUAIFENESIN 600MG SA TAB (Status = ) TAKE TWO TABLETS BY MOUTH TWICE DAILY FOR COUGH FOLLOW DOSE WITH FULL GLASS OF WATER Rx# [id number] Last Released: 10/26/23 Qty/Days Supply: 4010 Rx Expiration Date: 11/24/23 Refills Remainin Indication: FOR COUGH OUTPT HYDROCHLOROTHIAZIDE 25MG TAB (Status = Discontinued) TAKE ONE TABLET BY MOUTH EVERY MORNING TO PREVENT FLUID/CONTROL BLOOD PRESSURE Rx# [id number] Last Released: 11/26/23 Qty/Days Supply: Rx Expiration Date: 02/07/24 Refills Remainin OUTPT HYDROCHLOROTHIAZIDE 25MG TAB (Status = Active/Suspended) TAKE ONE TABLET BY MOUTH EVERY MORNING TO PREVENT FLUID/CONTROL BLOOD PRESSURE Rx# [id number] Last Released: Supply: Rx Expiration Date: 01/01/25 Refills Remainin OUTPT IBUPROFEN 400MG TAB (Status = Active) TAKE ONE TABLET BY MOUTH TWICE DAILY NEEDED TAKE WITH FOOD; FOR PAIN/INFLAMMATION/SWELLING Rx# [id number] Last Released: 11/26/23 Qty/Days Supply: 6030 Rx Expiration Date: 10/01/24 Refills Remainin OUTPT IPRATROPIUM BR 0.03% NASAL SPRAY (Status = ) INSTILL 2 SPRAYS INTO EACH NOSTRIL TWICE DAILY FOR RUNNY NOSE FOR NASAL IRRITATION/CONGESTION Rx# [id number] Last Released: 10/26/23 Qty/Days Supply: 3010 Rx Expiration Date: 11/24/23 Refills Remainin Indication: FOR RUNNY NOSE OUTPT KETOCONAZOLE 2% SHAMPOO (Status = ) SHAMPOO SMALL AMOUNT TOPICALLY EVERY 3 DAYS NEEDED Rx# [id number] Last Released: 05/11/23 Qty/Days Supply: 120/90 Rx Expiration Date: 11/27/23 Refills Remainin Indication: FOR FUNGAL INFECTION OF THE SKIN OUTPT LOSARTAN 100MG TAB (Status = Active) TAKE ONE TABLET BY MOUTH ONCE DAILY FOR BLOOD PRESSURE/HEART Rx# [id number] Last Released: 01/04/24 Qty/Days Supply: 90/ Rx Expiration Date: 07/27/24 Refills Remainin OUTPT METFORMIN HCL 1000MG TAB (Status = Active) TAKE ONE TABLET BY MOUTH ONCE DAILY FOR DIABETES Rx# [id number] Last Released: 12/18/23 Qty/Days Supply: Rx Expiration Date: 10/01/24 Refills Remainin OUTPT OMEPRAZOLE 20MG EC CAP (Status = Active) TAKE ONE CAPSULE BY MOUTH EVERY MORNING 30 MINUTES BEFORE BREAKFAST FOR GASTROESOPHAGEAL REFLUX DISEASE Rx# [id number] Last Released: 08/20/23 Qty/Days Supply: Rx Expiration Date: 06/08/24 Refills Remainin Indication: FOR GASTROESOPHAGEAL REFLUX DISEASE OUTPT SIMVASTATIN 80MG TAB (Status = Active) TAKE ONE-HALF TABLET BY MOUTH AT BEDTIME FOR CHOLESTEROL Rx# [id number] Last Released: 11/26/23 Qty/Days Supply: Rx Expiration Date: 10/01/24 Refills Remainin OUTPT TACROLIMUS 0.03% TOP OINT (Status = ) APPLY THIN LAYER TOPICALLY TWICE DAILY NEEDED Rx# [id number] Last Released: 02/06/23 Qty/Days Supply: Rx Expiration Date: 11/27/23 Refills Remainin Indication: FOR ECZEMA OUTPT TAMSULOSIN HCL 0.4MG CAP (Status = Discontinued) TAKE ONE CAPSULE BY MOUTH AT BEDTIME Rx# [id number] Last Released: 12/23/23 Qty/Days Supply: Rx Expiration Date: 02/07/24 Refills Remainin OUTPT TAMSULOSIN HCL 0.4MG CAP (Status = Active/Suspended) TAKE ONE CAPSULE BY MOUTH AT BEDTIME Rx# [id number] Last Released: Supply: Rx Expiration Date: 01/01/25 Refills Remainin SUPPLIES /mary kate/ NINA MEDINA DNP, MANAGER STARS-C NURSE PRACTITIONER Signed: 01/07/2024 09:53 NINA MEDINA [facility]
--- OUTSIDE RECORDS SUMMARY | 2024-03-02 08:48 | XMS_ITS | Encounter Summary ---
Author Name [facility] [place] Address [address] [place] [address] Care Team Providers Care Chocolate Temperer Name Role Phone DALLIN LUCERO Primary Care [...] PART A Mar 16, 2010 PART A [id number] [phone] LOWELL FRANK JR PATIENT MEDICARE (WNR) MEDICARE (M) PART A Mar 16, 2010 PART A [id number] [phone] LOWELL FRANK JR PATIENT MEDICARE (WNR) MEDICARE (M) PART A Mar 16, 2010 PART A [id number] [phone] LOWELL FRANK JR PATIENT Selected Encounter This section includes the information on record at [place] for the Encounter. Date/Time Encounter Type Encounter Description Reason Provider Source Oct 27, 2023 07:32 AM Outpatient Encounter PRIMARY CARE/MEDICINE RAMIRO SWARTZ Encounter Template Text not used by [place] Plan of Treatment: Future Appointments (+ 6 months) and Future Tests (+/- 45 days) The Plan of Treatment section includes future care activities for the [facility] [place] [facility] This section includes future appointments and future orders which are active, pending or scheduled. Future Appointments This section includes appointments that were scheduled to occur 6 months from the date of the Encounter, up to a maximum of 20 appointments. The data comes from all [place] treatment facilities. Appointment Date/Time Appointment Type Appointme nt Facility Name Jan 01, 2024 08:30 AM AMBULATORY - MEDICINE [facility] [facility] Jan 07, 2024 09:00 AM AMBULATORY - MEDICINE [facility] [place] [facility] Jan 18, 2024 08:00 AM AMBULATORY - REHAB MEDICIN E [place] [facility] [place] [facility] Jan 20, 2024 10:30 AM AMBULATORY - MEDICINE [facility] [place] [facility] Feb 18, 2024 09:00 AM AMBULATORY - REHAB MEDICIN E [place] [facility] [place] [facility] Mar 02, 2024 08:45 AM AMBULATORY - [facility] Social History: Smoking Status (Most current) and Tobacco Use (All prior to encounter date) This section includes the most current, and the historical, smoking and tobacco- related health factors from the [place] facility where the Encounter took place. Current Smoking Status This section includes the most current smoking, or tobacco-related health factor, from the [place] facility where the Encounter took place. Date/Time Current Smoking Status Comment Facil ity Jan 29, 2023 09:44 AM [facility] Tobacco Use History This section includes a history of the smoking, or tobacco-related health factors, that were collected on or before the date of the Encounter. The data comes from the [place] facility where the Encounter took place. Date/Time Smoking Status/Tobacco Use Comment F acility Jan 29, 2023 09:44 AM PA-TOBACCO QUIT [address] [facility] [place] [facility] Dec 13, 2021 11:25 AM VA-TOBACCO FOR[facility] USER [facility] Dec 13, 2021 11:25 AM VA-TOBACCO QUIT 15 YRS OR MORE [facility] [place] [facility] Jan 02, 2021 02:07 PM VA-TOBACCO FORMER USER [facility] [place] [facility] Jan 02, 2021 02:07 PM VA-TOBACCO QUIT 15 YRS OR MORE [facility] [place] [facility] Feb 01, 2020 08:30 AM VA-TOBACCO FORMER USER [facility] [place] [facility] Feb 01, 2020 08:30 AM VA-TOBACCO QUIT 15 YRS OR MORE [place] [facility] [place] [facility] Nov 16, 2018 02:39 PM VA-TOBACCO FORMER USER [facility] [place] [facility] Nov 16, 2018 02:39 PM VA-TOBACCO QUIT 15 YRS OR MORE [facility] [place] [facility] Nov 06, 2017 02:22 PM VA-TOBACCO FORMER USER [place] [facility] [place] [facility] Nov 06, 2017 02:22 PM VA-TOBACCO QUIT 15 YRS OR MORE [place] [facility] [place] [facility] Jan 07, 2017 09:30 AM LIFETIME NON-TOBACCO USER [place] [facility] [place] [facility] Jan 08, 2016 09:06 AM QUIT TOBACCO USE > 7 YEARS AGO [place] [facility] [place] [facility] Oct 10, 2014 11:16 AM QUIT TOBACCO USE > 7 YEARS AGO . [place] [facility] [place] [facility] Advance Directives: All historical and current Section Date Range: From patient's date of to the date document was created. This section includes ALL of a patient's completed or amended [place] Advance and Rescinded Directives. The entries below indicate that a directive exists for the patient, but an actual copy is not included with this document. The data comes from all [place] facilities. Date Advance Directives Provider Source Dec 02, 2019 ADVANCE DIRECTIVE LI ZHAO [place] [facility] Encounter Notes: All associated encounter notes This section contains the clinical notes associated to the Encounter. Date/Time Encounter Note(s) Provider Source Oct 27, 2023 07:32 AM PRIMARY CARE SECUR E MESSAGING: LOCAL TITLE: PRIMARY CARE SECURE MESSAGING STANDARD TITLE: PRIMARY CARE SECURE MESSAGING DATE OF NOTE: OCT 27, 2023@07:32 ENTRY DATE: OCT 27, 2023@08:32:08 AUTHOR: RAMIRO SWARTZ EXP COSIGNER: URGENCY: STATUS: COMPLETED ------Original Message -------- Sent: 10/26/2023 03:00 PM ET From: DALLIN FRANK To: Brennen LUCERO_PRIMARY CARE_[facility] Subject: General:Covid- 19 SO I started taking Paxlovid today along with the other prescribed meds. my question is when can I expect to not be contagious . How soon could I get back to normal Thanks ------Original Message -------- Sent: 10/27/2023 08:32 AM ET From: RAMIRO SWARTZ To: DALLIN FRANK Subject: General:Covid- 19 Good Morning, We use CDC guideline for isolation, you can look these up on their website. The basic break down is you may go about your normal activity if you are fever free for 24 hours and your symptoms are improving but take precautions in public places for 5 days by wearing a mask. Thank you for your service, BILLY Cain - PACT Wine Merchant /mary kate/ RAMIRO SWARTZ RN REGISTERED NURSE Signed: 10/27/2023 08:32 RAMIRO SWARTZ [place] [facility]
--- OUTSIDE RECORDS SUMMARY | 2024-03-02 08:48 | XMS_ITS | Encounter Summary ---
Author Name [place] Address [address] [place] [address] Care Team Providers Care Second Grade Teacher Name Role Phone DALLIN LUCERO Primary [...] PART A Mar 16, 2010 PART A [id number] LOWELL FRANK JR PATIENT MEDICARE (WNR) MEDICARE (M) PART A Mar 16, 2010 PART A [id number] LOWELL FRANK JR PATIENT MEDICARE (WNR) MEDICARE (M) PART A Mar 16, 2010 PART A [id number] LOWELL FRANK JR PATIENT Selected Encounter This section includes the information on record at [place] for the Encounter. Date/Time Encounter Type Encounter Description Reason Provider Source Jan 18, 2024 08:00 AM HEARING AID EXAM BOTH EARS AUDIOLOGY ICD-10-CM H90.3 Sensorineural hearing loss, bilateral CAMINITI,VIJAY E IHE Encounter Template Text not used by [place] Assessments - Encounter Diagnoses This section includes the primary and secondary diagnoses documented for the Encounter. Date/Time Primary/Secondary Diagnosis Diagnosis Name Provider Source Jan 18, 2024 08:22 AM PRIMARY Sensorineural hearing loss, bilateral [facility]INITI[facility] Jan 18, 2024 08:22 AM SECONDARY Tinnitus, bilateral CAMINITI,VIJAY E [facility] Plan of Treatment: Future Appointments (+ 6 months) and Future Tests (+/- 45 days) The Plan of Treatment section includes future care activities for the patient from all [place] [facility]. This section includes future appointments and future orders which are active, pending or scheduled. Future Appointments This section includes appointments that were scheduled to occur 6 months from the date of the Encounter, up to a maximum of 20 appointments. The data comes from all [facility]. Appointment Date/Time Appointment Type Appointme nt Facility Name Jan 20, 2024 10:30 AM [facility] Feb 18, 2024 09:00 AM AMBULATORY - REHAB MEDICIN E [facility] Mar 02, 2024 08:45 AM [facility] Jul 05, 2024 08:00 AM AMBULATORY - MEDICINE [facility] Active, Pending, and Scheduled Orders This section includes a listing of several types of active, pending, and scheduled orders, including clinic medications orders, diagnostic test orders, procedure orders and consult orders; where the start date of the order is 45 days before the date of the Encounter or 45 days after the date of theEncounter. The data comes from all [facility]. Test Date/Time Test Type Test Details Facility Name Feb 12, 2024 03:06 PM Consult Order [facility] Cons Lanolin Plant Operator's Choice [facility] Social History: Smoking Status (Most current) and Tobacco Use (All prior to encounter date) This section includes the most current, and the historical, smoking and tobacco- related health factors from the [place] facility where the Encounter took place. Current Smoking Status This section includes the most current smoking, or tobacco-related health factor, from the [place] facility where the Encounter took place. Date/Time Current Smoking Status Comment Supriya houston Jan 01, 2024 08:30 AM VA-TOBACCO FORMER USER [place] [facility] Tobacco Use History This section includes a history of the smoking, or tobacco-related health factors, that were collected on or before the date of the Encounter. The data comes from the [place] facility where the Encounter took place. Date/Time Smoking Status/Tobacco Use Comment Kavita baxter Jan 01, 2024 08:30 AM VA-TOBACCO QUIT 15 YRS OR MORE [facility] [place] [facility] Jan 29, 2023 09:44 AM VA-TOBACCO FORMER USER [facility] [place] [facility] Jan 29, 2023 09:44 AM VA-TOBACCO QUIT 15 YRS OR MORE [facility] [place] [facility] Dec 13, 2021 11:25 AM VA-TOBACCO FORMER USER [facility] [place] [facility] Dec 13, 2021 11:25 AM VA-TOBACCO QUIT 15 YRS OR MORE [facility] [place] [facility] Jan 02, 2021 02:07 PM VA-TOBACCO FORMER USER [facility] [place] [facility] Jan 02, 2021 02:07 PM VA-TOBACCO QUIT 15 YRS OR MORE [facility] [place] [facility] Feb 01, 2020 08:30 AM VA-TOBACCO FORMER USER [facility] [place] [facility] Feb 01, 2020 08:30 AM VA-TOBACCO QUIT 15 YRS OR MORE [facility] [place] [facility] Nov 16, 2018 02:39 PM VA-TOBACCO FORMER USER [facility] [place] [facility] Nov 16, 2018 02:39 PM VA-TOBACCO QUIT 15 YRS OR MORE [facility] [place] [facility] Nov 06, 2017 02:22 PM VA-TOBACCO FORMER USER [facility] [place] [facility] Nov 06, 2017 02:22 PM VA-TOBACCO QUIT 15 YRS OR MORE [facility] [place] [facility] Jan 07, 2017 09:30 AM LIFETIME NON-TOBACCO USER [facility] [place] [facility] Jan 08, 2016 09:06 AM QUIT TOBACCO USE > 7 YEARS AGO [facility] Oct 10, 2014 11:16 AM QUIT TOBACCO USE > 7 YEARS AGO . [facility] Advance Directives: All historical and current Section Date Range: From patient's date of to the date document was created. This section includes ALL of a patient's completed or amended [place] Advance and Rescinded Directives. The entries below indicate that a directive exists for the patient, but an actual copy is not included with this document. The data comes from all [place] facilities. Date Advance Directives Provider Source Dec 02, 2019 ADVANCE DIRECTIVE BRYNLI PACHECO [facility] Encounter Notes: All associated encounter notes This section contains the clinical notes associated to the Encounter. Date/Time Encounter Note(s) Provider Source Jan 18, 2024 08:03 AM AUDIOLOGY E & M NO TE: LOCAL TITLE: AUDIOLOGY CLINIC STANDARD TITLE: AUDIOLOGY E & M NOTE DATE OF NOTE: JAN 18, 2024@08:03 ENTRY DATE: JAN 18, 2024@08:03:04 AUTHOR: VIJAY TURCIOS COSIGNER: URGENCY: STATUS: COMPLETED AUDIOLOGY CLINIC Has ADDENDA was seen 01-18-24 for a hearing re-evaluation. Hearing was last evaluated in 2019. He currently uses binaural Angelo RICs, issued in 2019. He reports no otologic changes, noting longstanding tinnitus and denying vertigo. He states that hearing may have declined. He notes interest in rechargeable devices and states he does not have a pacemaker. Results are as follow: Otoscopy is WNL for both ears, small amount of cerumen/dry skin. Pure tone audiometric testing with headphones revealed normal hearing, sloping to a moderately severe / severe sensorineural hearing loss bilaterally. Word recognition scores were good with 88% correct for each ear for recorded speech presented at 65 dB HL (masked). Normal tympanograms were obtained bilaterally. Results obtained today reflect some threshold decline for both ears in the higher frequency range in comparison to those from 2020. Connected both hearing aids to [employer] and performed a firmware update. Increased high frequency gain 2 steps. [place] was counseled on today's test results. Given the age and technology of 's current amplification, he is considered eligible for new hearing aids. Binaural rechargeable KORY with domes in size 3 are recommended and agrees. He chose silver. Fitting was scheduled for 02-18-24 at 9am, RTC placed. /mary kate/ Suman LEHMAN, [facility] STAFF ADJUNCT PSYCHOLOGY FACULTY MEMBER Signed: 01/18/2024 08:37 Receipt Acknowledged By: 01/18/2024 08:48 /mary kate/ MILTON MAHAN SUPERVISORY CRANBERRY GROWER 01/27/2024 ADDENDUM STATUS: COMPLETED Hearing aids received and certified, upcoming appointment scheduled on 02/18/2024. /mary kate/ JB RICKETTS Audiology Health Assembler Trim Signed: 01/27/2024 07:52 VIJAY TURCIOS CNTRL [facility]
--- OUTSIDE RECORDS SUMMARY | 2024-03-02 08:49 | XMS_ITS ---
Author Name [facility] [place] Organization [place] Address [address] [place] [id number] Care Team Providers Care Electronic Science Teacher Name Role Phone DALLIN LUCERO Primary [...] PART A Mar 16, 2010 PART A [id number] [phone] LOWELL FRANK JR PATIENT MEDICARE (WNR) MEDICARE (M) PART A Mar 16, 2010 PART A [id number] LOWELL FRANK JR PATIENT MEDICARE (WNR) MEDICARE (M) PART A Mar 16, 2010 PART A [id number] LOWELL FRANK JR PATIENT Selected Encounter This section includes the information on record at [place] for the Encounter. Date/Time Encounter Type Encounter Description Reason Provider Source Jan 20, 2024 11:07 AM FIT SPECTACLES MONOFOCAL OPTOMETRY ICD-10-CM Z46.0 Encounter for fit/adjst of spectacles and contact lenses BRYANNA PAEZ Encounter Template Text not used by [place] Assessments - Encounter Diagnoses This section includes the primary and secondary diagnoses documented for the Encounter. Date/Time Primary/Secondary Diagnosis Diagnosis Name Provider Source Jan 20, 2024 11:07 AM PRIMARY Encounter for fit/adjst of spectacles and contact lenses ROWENA NUGENT [facility] Plan of Treatment: Future Appointments (+ 6 months) and Future Tests (+/- 45 days) The Plan of Treatment section includes future care activities for the patient from all [place] [facility]. This section includes future appointments and future orders which are active, pending or scheduled. Future Appointments This section includes appointments that were scheduled to occur 6 months from the date of the Encounter, up to a maximum of 20 appointments. The data comes from all [place] treatment facilities. Appointment Date/Time Appointment Type Appointme nt Facility Name Feb 18, 2024 09:00 AM AMBULATORY - REHAB MEDIC[facility] Mar 02, 2024 08:45 AM AMBULATORY - MEDICINE [facility] Jul 05, 2024 08:00 AM AMBULATORY - MEDICINE [facility] Active, Pending, and Scheduled Orders This section includes a listing of several types of active, pending, and scheduled orders, including clinic medications orders, diagnostic test orders, procedure orders and consult orders; where the start date of the order is 45 days before the date of the Encounter or 45 days after the date of theEncounter. The data comes from all [place] treatment facilities. Test Date/Time Test Type Test Details Facility Name Feb 12, 2024 03:06 PM Consult Order [facility] Cons Ground Intelligence Officer's Choice [facility] Social History: Smoking Status (Most current) and Tobacco Use (All prior to encounter date) This section includes the most current, and the historical, smoking and tobacco- related health factors from the [place] facility where the Encounter took place. Current Smoking Status This section includes the most current smoking, or tobacco-related health factor, from the [place] facility where the Encounter took place. Date/Time Current Smoking Status Comment Facil ity Jan 01, 2024 08:30 AM VA-TOBACCO FORMER USER [place] [facility] Tobacco Use History This section includes a history of the smoking, or tobacco-related health factors, that were collected on or before the date of the Encounter. The data comes from the [place] facility where the Encounter took place. Date/Time Smoking Status/Tobacco Use Comment F acility Jan 01, 2024 08:30 AM VA-TOBACCO QUIT 15 YRS OR MORE VA [facility] [place] [facility] Jan 29, 2023 09:44 AM VA-TOBACCO FORMER USER VA [facility] [place] [facility] Jan 29, 2023 09:44 AM VA-TOBACCO QUIT 15 YRS OR MORE VA [facility] [place] [facility] Dec 13, 2021 11:25 AM VA-TOBACCO FORMER USER [facility] [place] [facility] Dec 13, 2021 11:25 AM VA-TOBACCO QUIT 15 YRS OR MORE VA [facility] [place] [facility] Jan 02, 2021 02:07 PM VA-TOBACCO FORMER USER [facility] [place] [facility] Jan 02, 2021 02:07 PM VA-TOBACCO QUIT 15 YRS OR MORE VA [facility] [place] [facility] Feb 01, 2020 08:30 AM VA-TOBACCO FORMER USER [facility] [place] [facility] Feb 01, 2020 08:30 AM VA-TOBACCO QUIT 15 YRS OR MORE VA [facility] [place] [facility] Nov 16, 2018 02:39 PM VA-TOBACCO FORMER USER [facility] [place] [facility] Nov 16, 2018 02:39 PM VA-TOBACCO QUIT 15 YRS OR MORE VA [facility] [place] [facility] Nov 06, 2017 02:22 PM VA-TOBACCO FORMER USER [facility] [place] [facility] Nov 06, 2017 02:22 PM VA-TOBACCO QUIT 15 YRS OR MORE [facility] [place] [facility] Jan 07, 2017 09:30 AM LIFETIME NON-TOBACCO USER [facility] [place] [facility] Jan 08, 2016 09:06 AM QUIT TOBACCO USE > 7 YEARS AGO [facility] [place] [facility] Oct 10, 2014 11:16 AM QUIT TOBACCO USE > 7 YEARS AGO . [facility] [facility] Advance Directives: All historical and current Section Date Range: From patient's date of to the date document was created. This section includes ALL of a patient's completed or amended [place] Advance and Rescinded Directives. The entries below indicate that a directive exists for the patient, but an actual copy is not included with this document. The data comes from all [place] facilities. Date Advance Directives Provider Source Dec 02, 2019 ADVANCE DIRECTIVE CAROLINALI EDWARDS [facility] Encounter Notes: All associated encounter notes This section contains the clinical notes associated to the Encounter. Date/Time Encounter Note(s) Provider Source Jan 20, 2024 11:07 AM OPTOMETRY NOTE: LOCAL TITLE: OPTOMETRY NOTE STANDARD TITLE: OPTOMETRY NOTE DATE OF NOTE: JAN 20, 2024@11:07 ENTRY DATE: JAN 20, 2024@11:07:38 AUTHOR: ESTER AMEZCUA EXP COSIGNER: URGENCY: STATUS: COMPLETED OPTOMETRY NOTE Has ADDENDA Repaired one pair today, replaced missing nosepads and replaced missing eyewire screw, inserted lens. Also, adjusted one pair. The quote provided below is for informational purposes only. Please verify prior to the creation of a purchase order. DALLIN FRANK 9580 RX INFORMATION OD +2.50 -0.50 X120 Add:0.00 Pzm:0.00 Dir: Prz2:0.00 Dir2: OS +2.00 0.00 X Add:0.00 Pzm:0.00 Dir: Prz2:0.00 Dir2: FITTING INFORMATION FPD: NPD: Dickson:R:27.5 L:28.5 SEG HT:R: L: Tint:None Shade:None VA Billable Items FRAME: LIT FERNÁNDEZ 50-140 Right Lens: POLY SINGLE VISION 1.586 POLY Left Lens: POLY SINGLE VISION 1.586 POLY CLIN items 0001 - Single Vision - Glass Plastic Brittany /mary kate/ ESTER AMEZCUA ROTO GRAVURE PRESS OPERATOR Signed: 01/20/2024 11:09 Receipt Acknowledged By: 01/20/2024 11:10 /mary kate/ Rowena Nugent LPN Licensed Practical Nurse 01/20/2024 ADDENDUM STATUS: COMPLETED PDS transmission superintendent fit 1 SV eyeglasses on 01/20/2024. OPT HT entered consult(s) as requested for provider signature. /mary kate/ Rowena Nugent LPN Licensed Practical Nurse Signed: 01/20/2024 11:12 ESTER AMEZCUA [facility]
--- OUTSIDE RECORDS SUMMARY | 2024-03-02 08:49 | XMS_ITS ---
Author Name [facility] [place] Address [address] [place] [address] Care Team Providers Care Flare Maker Name Role Phone DALLIN LUCERO Primary Care [...] PART A Mar 16, 2010 PART A [id number] LOWELL FRANK JR PATIENT MEDICARE (WNR) MEDICARE (M) PART A Mar 16, 2010 PART A [id number] [phone] LOWELL FRANK JR PATIENT MEDICARE (WNR) MEDICARE (M) PART A Mar 16, 2010 PART A [id number] [phone] LOWELL FRANK JR PATIENT Selected Encounter This section includes the information on record at [place] for the Encounter. Date/Time Encounter Type Encounter Description Reason Provider Source Feb 18, 2024 09:00 AM CONFORMITY EVALUATION AUDIOLOGY ICD-10-CM Z46.1 Encounter for fitting and adjustment of hearing aid CARLTON PECK Encounter Template Text not used by [place] Assessments - Encounter Diagnoses This section includes the primary and secondary diagnoses documented for the Encounter. Date/Time Primary/Secondary Diagnosis Diagnosis Name Provider Source Feb 18, 2024 09:29 AM PRIMARY Encounter for fitting and adjustment of hearing aid [facility]KA PECK [facility] Feb 18, 2024 09:29 AM SECONDARY Sensorineural hearing loss, bilateral AMBIKA PECK [facility] Plan of Treatment: Future Appointments (+ 6 months) and Future Tests (+/- 45 days) The Plan of Treatment section includes future care activities for the patient from all [place] [facility]. This section includes future appointments and future orders which are active, pending or scheduled. Future Appointments This section includes appointments that were scheduled to occur 6 months from the date of the Encounter, up to a maximum of 20 appointments. The data comes from all [place] treatment facilities. Appointment Date/Time Appointment Type Appointme nt Facility Name Mar 02, 2024 08:45 AM AMBUL[facility] Jul 05, 2024 08:00 AM [facility] Active, Pending, and Scheduled Orders This section includes a listing of several types of active, pending, and scheduled orders, including clinic medications orders, diagnostic test orders, procedure orders and consult orders; where the start date of the order is 45 days before the date of the Encounter or 45 days after the date of theEncounter. The data comes from all [facility]. 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 Current Smoking Status This section includes the most current smoking, or tobacco-related health factor, from the [place] facility where the Encounter took place. Date/Time Current Smoking Status Comment Facil [facility] Jan 01, 2024 08:30 AM VA-TOBACCO QUIT 15 YRS OR MORE [place] [facility] [place] [facility] Tobacco Use History This section includes a history of the smoking, or tobacco-related health factors, that were collected on or before the date of the Encounter. The data comes from the [place] facility where the Encounter took place. Date/Time Smoking Status/Tobacco Use Comment F acility Jan 01, 2024 08:30 AM VA-TOBACCO QUIT 15 YRS OR MORE [facility] [place] [facility] Jan 29, 2023 09:44 AM VA-TOBACCO FORMER USER [facility] [place] [facility] Jan 29, 2023 09:44 AM VA-TOBACCO QUIT 15 YRS OR MORE [facility] [place] [facility] Dec 13, 2021 11:25 AM VA-TOBACCO FORMER USER [facility] [place] [facility] Dec 13, 2021 11:25 AM VA-TOBACCO QUIT 15 YRS OR MORE [place] [facility] [place] [facility] Jan 02, 2021 02:07 PM VA-TOBACCO FORMER USER [facility] [place] [facility] Jan 02, 2021 02:07 PM VA-TOBACCO QUIT 15 YRS OR MORE [facility] [place] [facility] Feb 01, 2020 08:30 AM VA-TOBACCO FORMER USER [facility] [place] [facility] Feb 01, 2020 08:30 AM VA-TOBACCO QUIT 15 YRS OR MORE [facility] [place] [facility] Nov 16, 2018 02:39 PM VA-TOBACCO FORMER USER [facility] [place] [facility] Nov 16, 2018 02:39 PM VA-TOBACCO QUIT 15 YRS OR MORE [facility] [place] [facility] Nov 06, 2017 02:22 PM VA-TOBACCO FORMER USER [facility] [place] [facility] Nov 06, 2017 02:22 PM VA-TOBACCO QUIT 15 YRS OR MORE [facility] [place] [facility] Jan 07, 2017 09:30 AM LIFETIME NON-TOBACCO USER [facility] [place] [facility] Jan 08, 2016 09:06 AM QUIT TOBACCO USE > 7 YEARS AGO [facility] [place] [facility] Oct 10, 2014 11:16 AM QUIT TOBACCO USE > 7 YEARS AGO . [facility] [place] [facility] Advance Directives: All historical and current Section Date Range: From patient's date of to the date document was created. This section includes ALL of a patient's completed or amended [place] Advance and Rescinded Directives. The entries below indicate that a directive exists for the patient, but an actual copy is not included with this document. The data comes from all [place] facilities. Date Advance Directives Provider Source Dec 02, 2019 ADVANCE DIRECTIVE LI ZHAO [facility] Encounter Notes: All associated encounter notes This section contains the clinical notes associated to the Encounter. Date/Time Encounter Note(s) Provider Source Feb 18, 2024 07:24 AM AUDIOLOGY E & M NOTE: LOCAL TITLE: AUDIOLOGY CLINIC STANDARD TITLE: AUDIOLOGY E & M NOTE DATE OF NOTE: FEB 18, 2024@07:24 ENTRY DATE: FEB 18, 2024@07:24:54 AUTHOR: CARLTON PECK COSIGNER: URGENCY: STATUS: COMPLETED Dx CODE: Z46.1- Encounter for Fitting/Programming Hearing Aid(s); H90.3- Sensorineural Hearing Loss, Bilateral APPOINTMENT TYPE: Hearing Aid Fitting SUBJECTIVE (S): The patient was seen for hearing aid fitting and issuance. He had previously been evaluated and found to exhibit significant hearing loss for which amplification was recommended. How does the patient best learn? Verbal instruction, demonstration Does the patient have any cultural and scientology beliefs, emotional barriers, physical or cognitive limitations, and communication barriers which may impact his ability to learn? No Desire and motivation to learn? Good OBJECTIVE (O): Physical fit of hearing aids was good. Patient verified comfort. Verification of an appropriate acoustic response was obtained using Real Ear measurements (speech mapping) and NAL-NL2 targets. The patient reported good subjective benefit as well. Feedback product manager financial services was run. Hearing aids were found to be meeting targets adequately and MPO was not exceeding estimated UCL. Settings stored in GÓMEZ. ASSESSMENT (A): The following devices were issued: Make: Angelo Model: Edge AI KORY RT Right Serial Number: [id number] Left Serial Number: [id number] Battery size: RECHARGEABLE Warranty ends: 02/18/27 Trial Period ends: 07/18/24 Domes/Wax guards: 7mm occluded dome, Hear Clear University Administrator: Size 3 M Program(s): Automatic Button(s): Short press= disabled per request Long press= on/off Fitting Formula: NAL-NL2 Counseling was completed throughout todays appointment using a standardized curriculum that includes but is not limited to; realistic expectations with amplification in adverse listening environments, acclimatization to own voice and environmental sounds (following real-ear measurements), the importance of consistent use of amplification, proper insertion/removal, care and maintenance (including wax guards/domes if applicable), signal and alerts of devices, and charging/batteries. The was provided the opportunity to practice in office and reports confidence/understanding in all items reviewed. Time Spent= 20 minutes The patient was informed of and signed/agreed to [place] policy on hearing aid issuance: Yes Users are responsible for the maintenance and security of their devices. Determination of need to replace a hearing aid is made by the [place] foot setter. Hearing aids will not be replaced in cases of neglect, abuse, or excessive loss. Items issued are for personal use only. Prognosis for successful hearing aid use is good. PLAN (P): 1. Follow-up for programming/adjustments as needed. 2. The International Outcome Inventory-Hearing Aids (IOI-ALTAMIRANO) will be mailed to the in four weeks. He was asked to complete and mail back to clinic after completion. Patient Education Education provided on the following topics: Hearing aid use, care, maintenance Education provided to: P Response to Education: SARAH, JUNIOR, PI Matos Patient P Family F Significant Other SO Verbalizes Understanding VU Returns Demonstration RD Performs Independently PI Lacks Comprehension LC Refused Education RE Not Applicable NA // CARLTON PECK STAFF JUNIOR SOFTWARE ENGINEER Signed: 02/18/2024 09:29 CARLTON PECK [facility] [place] [facility]
--- OUTSIDE RECORDS SUMMARY | 2024-03-02 08:49 | XMS_ITS | Encounter Summary ---
Author Name [place] Address [address] [place] [address] Care Team Providers Care Order Management Specialist Name Role Phone CRISTIANO DECKER Primary Care [...] PART A Mar 16, 2010 PART A [id number] [phone] LOWELL FRANK JR PATIENT MEDICARE (WNR) MEDICARE (M) PART A Mar 16, 2010 PART A [id number] [phone] LOWELL FRANK JR PATIENT MEDICARE (WNR) MEDICARE (M) PART A Mar 16, 2010 PART A [id number] VR68 [phone] LOWELL FRANK JR PATIENT Selected Encounter This section includes the information on record at [place] for the Encounter. Date/Time Encounter Type Encounter Description Reason Provider Source Feb 08, 2024 09:22 AM Outpatient Encounter PRIMARY CARE/MEDICINE FARZANA BENITEZ Encounter Template Text not used by [place] Plan of Treatment: Future Appointments (+ 6 months) and Future Tests (+/- 45 days) The Plan of Treatment section includes future care activities for the patient from all [place] [facility]. This section includes future appointments and future orders which are active, pending or scheduled. Future Appointments This section includes appointments that were scheduled to occur 6 months from the date of the Encounter, up to a maximum of 20 appointments. The data comes from all [facility] facilities. Appointment Date/Time Appointment Type Appointme nt Facility Name Feb 18, 2024 09:00 AM AMBULATORY - REHAB MEDICIN E [facility] Mar 02, 2024 08:45 AM AMBULATORY - MEDICINE [facility] Jul 05, 2024 08:00 AM AMBULATORY - MEDICINE [facility] Active, Pending, and Scheduled Orders This section includes a listing of several types of active, pending, and scheduled orders, including clinic medications orders, diagnostic test orders, procedure orders and consult orders; where the start date of the order is 45 days before the date of the Encounter or 45 days after the date of theEncounter. The data comes from all [facility]. 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 The data comes from the [place] facility where the Encounter took place. Date/Time Smoking Status/Tobacco Use Comment F acility Jan 01, 2024 08:30 AM [place]-TOBACCO QUIT 15 YRS OR MORE [place] [facility] [place] [facility] Jan 29, 2023 09:44 AM VA-TOBACCO FORMER USER [place] [facility] [place] [facility] Jan 29, 2023 09:44 AM VA-TOBACCO QUIT 15 YRS OR MORE [place] [facility] [place] [facility] Dec 13, 2021 11:25 AM VA-TOBACCO FORMER USER [place] [facility] [place] [facility] Dec 13, 2021 11:25 AM VA-TOBACCO QUIT 15 YRS OR MORE [place] [facility] [place] [facility] Jan 02, 2021 02:07 PM VA-TOBACCO FORMER USER [place] [facility] [place] [facility] Jan 02, 2021 02:07 PM VA-TOBACCO QUIT 15 YRS OR MORE [place] [facility] [place] [facility] Feb 01, 2020 08:30 AM VA-TOBACCO FORMER USER [place] [facility] [place] [facility] Feb 01, 2020 08:30 AM VA-TOBACCO QUIT 15 YRS OR MORE [place] [facility] [place] [facility] Nov 16, 2018 02:39 PM VA-TOBACCO FORMER USER [place] [facility] [place] [facility] Nov 16, 2018 02:39 PM VA-TOBACCO QUIT 15 YRS OR MORE [place] [facility] [place] [facility] Nov 06, 2017 02:22 PM VA-TOBACCO FORMER USER [place] [facility] [place] [facility] Nov 06, 2017 02:22 PM VA-TOBACCO QUIT 15 YRS OR MORE [place] [facility] [facility] Jan 07, 2017 09:30 AM LIFETIME NON-TOBACCO USER [place] [facility] [place] [facility] Jan 08, 2016 09:06 AM QUIT TOBACCO USE > 7 YEARS AGO [place] [facility] [place] [facility] Oct 10, 2014 11:16 AM QUIT TOBACCO USE > 7 YEARS AGO . [place] [facility] [facility] Advance Directives: All historical and [...] Dec 02, 2019 ADVANCE DIRECTIVE LI ZHAO [facility] Encounter Notes: All associated encounter notes This section contains the clinical notes associated to the Encounter. Date/Time Encounter Note(s) Provider Source Feb 08, 2024 10:45 AM PRIMARY CARE SECUR E MESSAGING: LOCAL TITLE: PRIMARY CARE SECURE MESSAGING STANDARD TITLE: PRIMARY CARE SECURE MESSAGING DATE OF NOTE: FEB 08, 2024@10:45 ENTRY DATE: FEB 08, 2024@10:45:18 AUTHOR: ELLIE BENITEZ EXP COSIGNER: URGENCY: STATUS: COMPLETED ------Original Message -------- Sent: 02/08/2024 09:28 AM ET From: CRISTIANO FRANK To: [facility] Subject: General:Left shoulder No, I thought that I should get an X-ray at the [place] /mary kate/ ELLIE BENITEZ LPN Signed: 02/08/2024 10:45 Receipt Acknowledged By: 02/09/2024 09:41 /mary kate/ Cristiano Decker PA-C STAFF PHYSICIAN NATURAL SCIENCE MANAGER ELLIE BENITEZ [facility] Feb 08, 2024 09:22 AM PRIMARY CARE SECUR E MESSAGING: LOCAL TITLE: PRIMARY CARE SECURE MESSAGING STANDARD TITLE: PRIMARY CARE SECURE MESSAGING DATE OF NOTE: FEB 08, 2024@09:22 ENTRY DATE: FEB 08, 2024@09:22:12 AUTHOR: ELLIE BENITEZ EXP ORTEGAIGNER: URGENCY: STATUS: COMPLETED ------Original Message -------- Sent: 02/07/2024 05:56 PM ET From: CRISTIANO FRANK To: [facility] Subject: General:Left shoulder So last Thursday,, I injured my left shoulder while getting my luggage from a high rack. I thought that I could work it out but that's not happening. Constant pain! Thank you ------Original Message -------- Sent: 02/08/2024 09:21 AM ET From: ELLIE BENITEZ To: CRISTIANO FRANK Subject: General:Left shoulder Have you gone to a local Urgent Care or ER? /mary kate/ ELLIE BENITEZ LPN Signed: 02/08/2024 09:22 Receipt Acknowledged By: 02/09/2024 09:41 /mary kate/ Cristiano Decker PA-C STAFF PHYSICIAN NATURAL SCIENCE MANAGER ELLIE BENITEZ [place] [facility]
--- OUTSIDE RECORDS SUMMARY | 2024-03-02 08:49 | XMS_ITS | Encounter Summary ---
Author Name [facility] [place] Address [address] [place] [address] Care Team Providers Care Ground Worker Name Role Phone CRISTIANO DECKER Primary Care [...] PART A Mar 16, 2010 PART A [id number] LOWELL FRANK JR PATIENT MEDICARE (WNR) MEDICARE (M) PART A Mar 16, 2010 PART A [id number] [phone] LOWELL FRANK JR PATIENT MEDICARE (WNR) MEDICARE (M) PART A Mar 16, 2010 PART A [id number] [phone] LOWELL FRANK JR PATIENT Selected Encounter This section includes the information on [place] at [place] for the Encounter. Date/Time Encounter Type Encounter Description Reason Provider Source Feb 12, 2024 09:25 AM Outpatient Encounter PRIMARY CARE/MEDICINE FARZANA BENITEZ Encounter Template Text not used by [place] Plan of Treatment: Future Appointments (+ 6 months) and Future Tests (+/- 45 days) The Plan of Treatment section includes future care activities for the patient from all [place] [facility]. This section includes future appointments and future orders which are active, pending or scheduled. Future Appointments This section includes appointments that were scheduled to occur 6 months from the date of the Encounter, up to a maximum of 20 appointments. The data comes from [facility] facilities. Appointment Date/Time Appointment Type Appointme nt Facility Name Feb 18, 2024 09:00 AM AMBULATORY - REHAB MEDICIN E [facility] Mar 02, 2024 08:45 AM AMBULATORY - MEDICINE [facility] Jul 05, 2024 08:00 AM AMBULATORY - MEDICINE [facility] Active, Pending, and Scheduled Orders This section includes a listing of several types of active, pending, and scheduled orders, including clinic medications orders, diagnostic test orders, procedure orders and consult orders; where the start date of the order is 45 days before the date of the Encounter or 45 days after the date of theEncounter. The data comes from all [facility]. Test Date/Time Test Type Test Details Facility Name Feb 12, 2024 03:06 PM Consult Order COMMUNITY CARE-ORTHO GENERAL Cons Swatch Paster's Choice [facility] Social History: Smoking Status (Most current) [...] 01, 2024 08:30 AM VA-TOBACCO FORMER USER [facility] Tobacco Use History This section includes a history of the smoking, or tobacco-related health factors, that were collected on or before the date of the Encounter. The data comes from the [place] facility where the Encounter took place. Date/Time Smoking Status/Tobacco Use Comment F acility Jan 01, 2024 08:30 AM [place]-TOBACCO QUIT 15 YRS OR MORE [place] [facility] [place] [facility] Jan 29, 2023 09:44 AM VA-TOBACCO FORMER USER [place] [facility] [place] [facility] Jan 29, 2023 09:44 AM VA-TOBACCO QUIT 15 YRS OR MORE [place] [facility] [place] [facility] Dec 13, 2021 11:25 AM VA-TOBACCO FORMER USER [facility] [place] [facility] Dec 13, 2021 11:25 AM VA-TOBACCO QUIT 15 YRS OR MORE [place] [facility] [place] [facility] Jan 02, 2021 02:07 PM VA-TOBACCO FORMER USER [facility] [place] [facility] Jan 02, 2021 02:07 PM VA-TOBACCO QUIT 15 YRS OR MORE [place] [facility] [place] [facility] Feb 01, 2020 08:30 AM VA-TOBACCO FORMER USER [place] [facility] [place] [facility] Feb 01, 2020 08:30 AM VA-TOBACCO QUIT 15 YRS OR MORE [place] [facility] [place] [facility] Nov 16, 2018 02:39 PM VA-TOBACCO FORMER USER [place] [facility] [place] [facility] Nov 16, 2018 02:39 PM VA-TOBACCO QUIT 15 YRS OR MORE [place] [facility] [place] [facility] Nov 06, 2017 02:22 PM VA-TOBACCO FORMER USER [place] [facility] [place] [facility] Nov 06, 2017 02:22 PM VA-TOBACCO QUIT 15 YRS OR MORE [place] [facility] [place] [facility] Jan 07, 2017 09:30 AM LIFETIME NON-TOBACCO USER [place] [facility] [place] [facility] Jan 08, 2016 09:06 AM QUIT TOBACCO USE > 7 YEARS AGO [place] [facility] [place] [facility] Oct 10, 2014 11:16 AM QUIT TOBACCO USE > 7 YEARS AGO . [place] [facility] [place] [facility] Advance Directives: All historical and current [...] Dec 02, 2019 ADVANCE DIRECTIVE LI ZHAO [facility] Encounter Notes: All associated encounter notes This section contains the clinical notes associated to the Encounter. Date/Time Encounter Note(s) Provider Source Feb 12, 2024 09:29 AM ADDENDUM: LOCAL TITLE: Addendum STANDARD TITLE: ADDENDUM DATE OF NOTE: FEB 12, 2024@09:29:06 ENTRY DATE: FEB 12, 2024@09:29:06 AUTHOR: ELLIE BENITEZER: URGENCY: STATUS: COMPLETED Call placed to who states saw [facility] Or[facility] surgeons threough the ER visit, will need CC consult for orhtopedics /mary kate/ ELLIE BENITEZ LPN Signed: 02/12/2024 09:31 Receipt Acknowledged By: 02/12/2024 11:32 /mary kate/ Cristiano Decker PA-C STAFF PHYSICIAN LEAD CUSTOMER SERVICE REPRESENTATIVE 02/12/2024 15:30 /mary kate/ RAMIRO SWARTZ, BILLY REGISTERED NURSE ========= --- Original Document --- 02/12/24 PRIMARY CARE SECURE MESSAGING: ------Original Message -------- Sent: 02/11/2024 06:00 AM ET From: CRISTIANO FRANK To: Brennen DECKER_PRIMARY CARE_[facility] Subject: General:[facility] orthopedic surgeon Do I need further approval to see [place] [facility] Surgeon or is this already approved? /ruddy BENITEZ LPN Signed: 02/12/2024 09:25 ELLIE BENITEZ [facility] Feb 12, 2024 09:25 AM PRIMARY CARE SECUR E MESSAGING: LOCAL TITLE: PRIMARY CARE SECURE MESSAGING STANDARD TITLE: PRIMARY CARE SECURE MESSAGING DATE OF NOTE: FEB 12, 2024@09:25 ENTRY DATE: FEB 12, 2024@09:25:46 AUTHOR: ELLIE BENITEZ: URGENCY: STATUS: COMPLETED PRIMARY CARE SECURE MESSAGING Has ADDENDA ------Original Message -------- Sent: 02/11/2024 06:00 AM ET From: CRISTIANO FRANK To: Brennen DECKER_PRIMARY CARE_[facility] Subject: General:[facility] orthopedic surgeon Do I need further approval to see [place] [facility] Surgeon or is this already approved? /mary kate/ ELLIE BENITEZ LPN Signed: 02/12/2024 09:25 02/12/2024 ADDENDUM STATUS: COMPLETED Call placed to who states saw [place] [facility] surgeons threough the ER visit, will need CC consult for orhtopedics /mary kate/ ELLIE BENITEZ LPN Signed: 02/12/2024 09:31 Receipt Acknowledged By: * AWAITING SIGNATURE * CRISTIANO DECKER * AWAITING SIGNATURE * RAMIRO SWARTZ [facility] [place] [facility]
--- OUTSIDE RECORDS SUMMARY | 2024-03-02 08:49 | XMS_ITS ---
Author Name [facility] [facility] [place] [facility] [place] Address [address] [place] [id number] Care Team Providers Care Line Analyst Name Role Phone DALLIN LUCERO Primary Care [...] PART A Mar 16, 2010 PART A [id number] LOWELL FRANK JR PATIENT MEDICARE (WNR) MEDICARE (M) PART A Mar 16, 2010 PART A [id number] LOWELL FRANK JR PATIENT MEDICARE (WNR) MEDICARE (M) PART A Mar 16, 2010 PART A [id number] LOWELL FRANK JR PATIENT Selected Encounter This section includes the information on record at [place] for the Encounter. Date/Time Encounter Type Encounter Description Reason Provider Source Jan 20, 2024 10:30 AM FIT SPECTACLES MONOFOCAL OPTOMETRY ICD-10-CM E11.9 Type 2 diabetes mellitus without complications VALENTIN PAEZ [facility] Encounter Template Text not used by [place] Assessments - Encounter Diagnoses This section includes the primary and secondary diagnoses documented for the Encounter. Date/Time Primary/Secondary Diagnosis Diagnosis Name Provider Source Jan 20, 2024 12:56 PM PRIMARY Type 2 diabetes mellitus without complications VALENTIN PAEZ [facility] Jan 20, 2024 12:56 PM SECONDARY Presence of intraocular lens VALENTIN PAEZ [facility] Plan of Treatment: Future Appointments (+ 6 months) and Future Tests (+/- 45 days) The Plan of Treatment section includes future care activities for the patient [facility] [place] [facility]. This section includes future appointments and [...] 09:00 AM [facility] Mar 02, 2024 08:45 AM [facility] Jul 05, 2024 08:00 AM AMBULATORY - MEDICINE [facility] Active, Pending, and Scheduled Orders This section includes a listing of several types of active, pending, and scheduled orders, including clinic medications orders, diagnostic test orders, procedure orders and consult orders; where the start date of the order is 45 days before the date of the Encounter or 45 days after the date of theEncounter. The data comes from all [place] [facility]. Test Date/Time Test Type Test Details Facility Name Feb 12, 2024 03:06 PM Consult Order COMMUNITY CARE-ORTHO GENERAL Cons Industrial Servicer's Choice [facility] Social History: Smoking Status (Most current) [...] Current Smoking Status Comment Supriya ity Jan 01, 2024 08:30 AM VA-TOBACCO FORMER USER [place] [facility] [place] [facility] Tobacco Use History This section includes a history of the smoking, or tobacco-related health factors, that were collected on or before the date of the Encounter. The data comes from the [place] facility where the Encounter took place. Date/Time Smoking Status/Tobacco Use Comment Kavita acility Jan 01, 2024 08:30 AM VA-TOBACCO QUIT 15 YRS OR MORE [facility] [place] [facility] Jan 29, 2023 09:44 AM VA-TOBACCO FORMER USER [facility] [place] [facility] Jan 29, 2023 09:44 AM VA-TOBACCO QUIT 15 YRS OR MORE [facility] [place] [facility] Dec 13, 2021 11:25 AM VA-TOBACCO FORMER USER [facility] [place] [facility] Dec 13, 2021 11:25 AM VA-TOBACCO QUIT 15 YRS OR MORE [facility] [place] [facility] Jan 02, 2021 02:07 PM VA-TOBACCO FORMER USER [facility] [place] [facility] Jan 02, 2021 02:07 PM VA-TOBACCO QUIT 15 YRS OR MORE [facility] [place] [facility] Feb 01, 2020 08:30 AM VA-TOBACCO FORMER USER [facility] [place] [facility] Feb 01, 2020 08:30 AM VA-TOBACCO QUIT 15 YRS OR MORE [place] [facility] [place] [facility] Nov 16, 2018 02:39 PM VA-TOBACCO FORMER USER [facility] [place] [facility] Nov 16, 2018 02:39 PM VA-TOBACCO QUIT 15 YRS OR MORE [facility] [place] [facility] Nov 06, 2017 02:22 PM VA-TOBACCO FORMER USER [facility] [place] [facility] Nov 06, 2017 02:22 PM VA-TOBACCO QUIT 15 YRS OR MORE [facility] [place] [facility] Jan 07, 2017 09:30 AM LIFETIME NON-TOBACCO USER [facility] [place] [facility] Jan 08, 2016 09:06 AM QUIT TOBACCO USE > 7 YEARS AGO [place] [facility] [place] [facility] Oct 10, 2014 11:16 AM QUIT TOBACCO USE > 7 YEARS AGO . [facility] Advance Directives: All historical and current [...] Source Dec 02, 2019 ADVANCE DIRECTIVE CAROLINACATHYSLI L [facility] Encounter Notes: All associated encounter notes This section contains the clinical notes associated to the Encounter. Date/Time Encounter Note(s) Provider Source Jan 20, 2024 08:48 AM OPTOMETRY NOTE: LOCAL TITLE: OPTOMETRY NOTE(T) STANDARD TITLE: OPTOMETRY NOTE DATE OF NOTE: JAN 20, 2024@08:48 ENTRY DATE: JAN 20, 2024@08:48:49 AUTHOR: BRYANNA PAEZ COSIGNER: URGENCY: STATUS: COMPLETED Active Problems: Active Problem Exposure to potentially hazardous s 06/24/2023 JOHNATHON SOTO Diastasis recti M62.08 07/02/2021 DALLIN LUCERO Type 2 diabetes mellitus without co 01/10/2019 DALLIN LUCERO Psoriasis L40.9 02/05/2018 DALLIN LUCERO Herpes simplex B00.9 06/08/2023 RONALD MARIE Family history of malignant melanom 06/08/2023 RONALD MARIE Hearing Loss 389.9 10/10/2014 DALLIN LUCERO Medications (VA): Active Outpatient Medications (including Supplies): Active Outpatient [...] CAPSULE BY MOUTH AT ACTIVE (S) BEDTIME Allergies: VALTREX S: 78-year-old male is in for annual follow-up with a history of type 2 diabetes and pseudophakia. He wears reading glasses only without complaints. He denies any eye injury or disease since his last exam. DAVID: 01/16/2023 OHx (+/-)?If Yes, explain: 1. T2 DM without retinopathy or macular edema OU 2. Pseudophakia OU 3. Refractive error OU (-) Pain: (-) ALTAMIRANO: (-) Diplopia: (-) Flashes: (-) Floaters: (-) Amaurosis Fugax/Tia's: (-) Eye Injury: (-) Eye Surgery: (-) TBI Last HbA1c: 12/15/2023 6.3% O: Visual acuity without correction was 20/20 both eyes. Pupils were equal and round and reactive to light with no afferent defect. Extraocular muscles were intact and facial confrontation bobo were full. Dermatochalasis OU was seen and lashes were clear both eyes. Corneas and conjunctiva were clear both eyes with small pterygia nasally OU. Anterior chambers were deep clear and quiet with open angles. Iris was flat both eyes without neovascularization. Posterior chamber lenses were in place and clear OU. Current Rx with last BCVA: OD: Squires -0.50 x120 20/20 OS: -0.50 sph 20/20 Add: +2.50 20/20 Intraocular pressures at 10:30 AM were 16 mmHg OU. Dilating Drops: 1GTT 1 % Tropicamide OU & 1GTT 2.5% Phenylephrine OU (Pt. ed. on side effects, dilation warning given and verbal consent obtained) Patient advised not to drive if they feel they have any symptoms which could affect their ability to drive safely. Patient advised not to engage in any activities which could put themselves or others at risk if they feel they have any symptoms which could affect their ability to perform those activities safely. PVD was seen OU. Approximately 15% horizontal and vertical cupping was seen OU without neovascularization OU. Normal pigmentary architecture of the macula was seen without lipid or edema. A two third artery to vein ratio was seen OU. Retinal periphery's were intact in all quadrants OU. No diabetic retinopathy was seen OU. A: Type 2 diabetes without ocular manifestations. Pseudophakia OU appears stable from prior notes. Presbyopia P: Patient is content with reading glasses only. The patient will return in 12 months or sooner if any problems arise. Education: After discussion and answering all 's questions, demonstrated and verbalized understanding of diagnosis and treatment. Yes [x] No [ ] Patient Education: Diabetes: Patient was educated regarding diabetes and related ocular complications including retinopathy and cataract formation as well as other related systemic complications. The importance of good blood sugar control, blood sugar testing as recommended by their PCP and the importance of timely follow up were all emphasized. Medication Reconciliation: Outpatient: Has the patient been [...] a VA or non-VA provider. /mary kate/ BRYANNA PAEZ STAFF MAJOR GIFTS OFFICER Signed: 01/20/2024 12:56 BRYANNA PAEZ [facility]
--- OUTSIDE RECORDS SUMMARY | 2024-03-02 08:49 | XMS_ITS | Patient Health Record ---
Author Organization [facility] Address [address] [place] [id number] Care Team Providers Care Weather Algorithm Scientist Name Role Phone Cristiano Damico Primary Care Provider Un available Ozzie Azul Jr Unavailable [phone] ALLERGIES No Known Allergies REASON FOR REFERRAL [...] history of colon cancer (Z80.0) Active confirmed 256736891 Problem Long-term current use of high risk medication other than anticoagulant (Z79.899) Active confirmed 626490724 Problem Colon cancer screening (Z12.11) Active confirmed 955580390 Problem Encounter for other preprocedural examination (Z01.818) Active confirmed 434481175 Problem Long-term use of aspirin therapy (Z79.82) Active confirmed 336245631 Problem Diverticulosis of colon (K57.30) Active confirmed Diverticulosi s of colon (430622103) PLAN OF TREATMENT Future Test Test Name Order Date COLONOSCOPY 11/22/2015 COLONOSCOPY 11/21/2021 Insurance Providers Payer Name Payer Address Payer Phone Subscriber Number Group Number Insured Name Patient Relationship to Insured Coverage Start Date Coverage End Date [facility] [employer] [address] [place] [id number] CRISTIANO FRANK Self - patient is the insured MEDICAL (GENERAL) HISTORY Medical History History ICD Code colonoscopy 01/29, tubular adenoma, five -year followup for family history Hearing loss hemorrhoids elevated cholesterol hypertension HSV infections diabetes type 2 Diastasis recti Surgical History Surgery Date(Month/Year) Bilateral inguinal herniorrhaphies left rotor cuff surgery
--- OUTSIDE RECORDS SUMMARY | 2024-03-02 08:49 | XMS_ITS ---
Author Organization [facility] Address [address] [place] [id number] Care Team Providers Care Personal Finance Instructor Name Role Phone Cristiano Damico Primary Care Provider Un available Ozzie Azul Jr Unavailable [phone] Encounters Encounter Location Date Provider Diagnosis [facility] [address] [place] [phone] 10/10/2022 Ozzie Azul Jr PLAN OF TREATMENT No Information
--- OUTSIDE RECORDS SUMMARY | 2024-03-02 08:49 | XMS_ITS | Encounter Summary ---
Author Name [facility] [place] [facility] [place] [facility] [place] Address [address] [place] [address] Care Team Providers Care Automatic Lathe Setter Name Role Phone DALLIN LUCERO Primary Care [...] PART A Mar 16, 2010 PART A [id number] LOWELL FRANK JR PATIENT MEDICARE (WNR) MEDICARE (M) PART A Mar 16, 2010 PART A [id number] [phone] LOWELL FRANK JR PATIENT MEDICARE (WNR) MEDICARE (M) PART A Mar 16, 2010 PART A [id number] LOWELL FRANK JR PATIENT Selected Encounter This section includes the information on record at [place] for the Encounter. Date/Time Encounter Type Encounter Description Reason Provider Source Feb 12, 2024 09:37 AM Outpatient Encounter PRIMARY CARE/MEDICINE FARZANA BENITEZ Encounter Template Text not used by [place] Plan of Treatment: Future Appointments (+ 6 months) and Future Tests (+/- 45 days) The Plan of Treatment section includes future care activities for the patient from all [place] [facility]. This section includes future appointments and future orders which are active, pending or scheduled. Future Appointments This section includes appointments that were scheduled to occur 6 months from the date of the Encounter, up to a maximum of 20 appointments. The data comes from all [facility] facilities. Appointment Date/Time Appointment Type Appointme nt Facility Name Feb 18, 2024 09:00 AM AMBULATORY - REHAB MEDICIN E [facility] Mar 02, 2024 08:45 AM AMBULATORY - MEDICINE [facility] Jul 05, 2024 08:00 AM AMBULATORY - MEDICINE [facility] Active, Pending, and Scheduled Orders This section includes a listing of several types of active, pending, and scheduled orders, including clinic medications orders, diagnostic test orders, procedure orders and consult orders; where the start date of the order is 45 days before the date of the Encounter or 45 days after the date of theEncounter. The data comes from all [facility]. Test Date/Time Test Type Test Details Facility Name Feb 12, 2024 03:06 PM Consult Order COMMUNITY CARE-ORTHO GENERAL Cons Ceramic Sprayer's Choice [facility] Social History: Smoking Status (Most current) and Tobacco Use (All prior to encounter date) This section includes the most current, and the historical, smoking and tobacco- related health factors from the [place] facility where the Encounter took place. Current Smoking Status This section includes the most current smoking, or tobacco-related health factor, from the [place] facility where the Encounter took place. Date/Time Current Smoking Status Comment Facil ity Jan 01, 2024 08:30 AM VA-TOBACCO FORMER USER [facility] Tobacco Use History This section includes a history of the smoking, or tobacco-related health factors, that were collected on or before the date of the Encounter. The data comes from the [place] facility where the Encounter took place. Date/Time Smoking Status/Tobacco Use Comment F acility Jan 01, 2024 08:30 AM [place]-TOBACCO QUIT 15 YRS OR MORE [facility] [place] [facility] Jan 29, 2023 09:44 AM VA-TOBACCO FORMER USER [facility] [place] [facility] Jan 29, 2023 09:44 AM VA-TOBACCO QUIT 15 YRS OR MORE [facility] [place] [facility] Dec 13, 2021 11:25 AM VA-TOBACCO FORMER USER [facility] [place] [facility] Dec 13, 2021 11:25 AM VA-TOBACCO QUIT 15 YRS OR MORE [facility] [place] [facility] Jan 02, 2021 02:07 PM VA-TOBACCO FORMER USER [facility] [place] [facility] Jan 02, 2021 02:07 PM VA-TOBACCO QUIT 15 YRS OR MORE [facility] [place] [facility] Feb 01, 2020 08:30 AM VA-TOBACCO FORMER USER [facility] [place] [facility] Feb 01, 2020 08:30 AM VA-TOBACCO QUIT 15 YRS OR MORE [place] [facility] [place] [facility] Nov 16, 2018 02:39 PM VA-TOBACCO FORMER USER [facility] [place] [facility] Nov 16, 2018 02:39 PM VA-TOBACCO QUIT 15 YRS OR MORE [place] [facility] [place] [facility] Nov 06, 2017 02:22 PM VA-TOBACCO FORMER USER [facility] [place] [facility] Nov 06, 2017 02:22 PM VA-TOBACCO QUIT 15 YRS OR MORE [place] [facility] [place] [facility] Jan 07, 2017 09:30 AM LIFETIME NON-TOBACCO USER [facility] [place] [facility] Jan 08, 2016 09:06 AM QUIT TOBACCO USE > 7 YEARS AGO [facility] [place] [facility] Oct 10, 2014 11:16 AM QUIT TOBACCO USE > 7 YEARS AGO . [place] [facility] [place] [facility] Advance Directives: All historical and current Section Date Range: From patient's date of to the date document was created. This section includes ALL of a patient's completed or amended [place] Advance and Rescinded Directives. The entries below indicate that a directive exists for the patient, but an actual copy is not included with this document. The data comes from all [place] facilities. Date Advance Directives Provider Source Dec 02, 2019 ADVANCE DIRECTIVE LI ZHAO [facility] Encounter Notes: All associated encounter notes This section contains the clinical notes associated to the Encounter. Date/Time Encounter Note(s) Provider Source Feb 12, 2024 09:37 AM PRIMARY CARE PEGGY Velásquez MESSAGING: LOCAL TITLE: PRIMARY CARE SECURE MESSAGING STANDARD TITLE: PRIMARY CARE SECURE MESSAGING DATE OF NOTE: FEB 12, 2024@09:37 ENTRY DATE: FEB 12, 2024@09:37:30 AUTHOR: ELLIE BENITEZ EXP COSIGNER: URGENCY: STATUS: COMPLETED ------Original Message -------- Sent: 02/12/2024 08:47 AM ET From: DALLIN FRANK To: Brennen LUCERO_PRIMARY CARE_[facility] Subject: Appointment:[place] [facility] Attachments: [id number] (160.87 KB) Looking for insurance referral approval /mary kate/ ELLIE BENITEZ LPN Signed: 02/12/2024 09:37 ELLIE BENITEZ [facility]
--- NOTE | 2024-03-02 09:06 | MHC.OFFVIS ---
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 Patient reports about 10 days prior to ER visit on 02/09/24, he went to grab his luggage off of an upper shelf with his left arm when the luggage fell to the ground, yanking the left arm. Hx of left rotator cuff injury 20-30 years ago requiring surgery x2 with Dr. Betancur. States same feeling from before burning and pulling sensation that travel up his neck. He has no strength and is unable to lift his arm above his shoulder. Finds some relief with ibuprofen. 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 He reports he went to grab his luggage off of an upper shelf with his left arm when the luggage fell to the ground and he felt crack and burning sensation in his shoulder. He was seen at ER 10 days after the DOI, on 02/09/24. He currently states he has the constant pain, burning and pulling sensation in his shoulder that radiates down to the neck. He also experiences limited ROM and weakness in his shoulder. He is unable to lift his hand above shoulder height. He finds mild relief with ibuprofen. [facility] Medical History Encounter for testing for latent tuberculosis infection Screening for viral disease BPH (benign prostatic hyperplasia) Dyslipidemia Hypertension Joint pain in fingers of right hand Pain in joints of left hand Low back pain, unspecified Herpes simplex Psoriasis Type 2 diabetes mellitus Surgical History H/O colonoscopy S/P left rotator cuff repair Hx of umbilical hernia repair Family History Father Melanoma Mother Colitis Social History (Updated 03/02/24 @ 09:11 by RYLIE Nelson) Household Members: Spouse Alcohol intake: current Alcohol intake frequency: holidays/special occasions only Patient Tobacco Use Status: Former Tobacco user service: Yes Current occupational status: retired Current occupation: left hand dominant Review of Systems Const All systems reviewed & are unremarkable except as noted in HPI and below Physical Exam Vital Signs: BMI result Body Mass Index 27.8 Const General: cooperative, healthy appearing, comfortable, no acute distress, well developed and alert Orientation/consciousness: patient oriented x3 HEENT Head: Yes normal to inspection, Yes normocephalic and Yes atraumatic Eyes General: appearance normal, both eyes and all related structures Resp Effort & Inspection: normal respiratory effort and able to speak in complete sentences Cardio Rate: regular rate Peripheral pulses: Peripheral pulses 2+ throughout GI Palpation (GI): Soft to palpation Skin Lesions: no lesions Rashes: no rashes Neuro General: patient oriented x3 Extrem Other: Left shoulder: Normal to inspection. Surgical scar well healed. Forward flexion to 90, external rotation to 45, difficulty with IR. Weakness wtih RTC strength and use of accessory muscles. NVI.? Results Reviewed Results Reviewed: XR shoulder LT min 2V IMPRESSION: 1. Degenerative changes in the acromioclavicular and glenohumeral joints. 2. Narrowing of the subacromial space. 3. Periosteal reaction along the inferior lateral aspect of the scapula. 4. Diffuse demineralization with focal demineralization in the humeral head. Assessment & Plan Assessment & Plan (1) Left rotator cuff tear: Code(s): M75.102 - Unspecified rotator cuff tear or rupture of left shoulder, not specified as traumatic Category: Medical Plan An MRI of left shoulder has been ordered to further evaluate the extent of his RTC in setting of new injury. Once the scan is complete, we will contact him to discuss the next step in his treatment. Orders: Orders MR shoulder RT wo con Today M77.8 - Other enthesopathies, not elsewhere classified Patient Instructions: Scribed for Tee Rice PA-C, by Eh Rosario director of medical education, on 03/02/2024 at 8:45 AM EST.? I, Tee Rice PA-C, have personally reviewed and agree with the information entered by the scribe. Coding Level of Care Code Est Pt Level 3 (23248) Complex EM visit Add On G2211 Diagnoses Left rotator cuff tear M75.102
[2024-03-02 09:23] VITALS: BMI 27.8
== END 2024-03-02 10:07 | disposition home or self-care (01) ==
PROVIDERS: PCP Physician Assistant; Visit Provider Physician Assistant
DX: M75.102 Unspecified rotator cuff tear or rupture of left shoulder, not specified as traumatic (principal)
CPT/HCPCS: 99213; G2211

== ENCOUNTER → 2024-03-02 08:31 | Outpatient (BNVA) | payer OTHER, SELFPAY | PROVIDERS: PCP Physician Assistant; Visit Provider Physician Assistant | DX: M75.102 Unspecified rotator cuff tear or rupture of left shoulder, not specified as traumatic (principal) | CPT/HCPCS: 99212 ==

== ENCOUNTER → 2024-03-11 19:43 | Outpatient (BNV) | payer OTHER, SELFPAY | PROVIDERS: PCP Physician Assistant; Visit Provider Radiology Diagnostic Radiology | DX: S46.002A Unspecified injury of muscle(s) and tendon(s) of the rotator cuff of left shoulder, initial encounter (principal) | CPT/HCPCS: 73221 ==

== ENCOUNTER 2024-03-11 19:44 | Outpatient (REF) | payer OTHER, SELFPAY ==
--- OUTSIDE RECORDS SUMMARY | 2024-03-11 19:49 | XMS_ITS ---
Author Name [facility] [place] Organization [facility] [place] Address [address] [place] [address] Care Team Providers Care Machine Stonecutter Name Role Phone DALLIN LUCERO Primary Care [...] PART A Mar 16, 2010 PART A [id number] [phone] LOWELL FRANK JR PATIENT MEDICARE (WNR) MEDICARE (M) PART A Mar 16, 2010 PART A [id number] [phone] LOWELL FRANK JR PATIENT MEDICARE (WNR) MEDICARE (M) PART A Mar 16, 2010 PART A [id number] [phone] LOWELL FRANK JR PATIENT Selected Encounter This section includes the information on record at DC for the Encounter. Date/Time Encounter Type Encounter Description Reason Pro vider Source Feb 09, 2024 12:00 AM Outpatient Encounter EVENT (HISTORICAL) IHE Encounter Template Text not used by DC Plan of Treatment: Future Appointments (+ 6 months) and Future Tests (+/- 45 days) The Plan of Treatment section includes future care activities for the patient [facility] [place] [facility] This section includes future appointments and future orders which are active, pending or scheduled. Future Appointments This section includes appointments that were scheduled to occur 6 months from the date of the Encounter, up to a maximum of 20 appointments. The data comes from all [place] treatment facilities. Appointment Date/Time Appointment Type Appointme nt Facility Name Feb 18, 2024 09:00 AM AMBULATORY - REHAB MEDICIN E [facility] Mar 02, 2024 08:45 AM [facility] Jul 05, 2024 08:00 AM AMBULATORY - MEDICINE [facility] Active, Pending, and Scheduled Orders This section includes a listing of several types of active, pending, and scheduled orders, including clinic medications orders, diagnostic test orders, procedure orders and consult orders; where the start date of the order is 45 days before the date of the Encounter or 45 days after the date of theEncounter. The data comes from all [facility] facilities. Test Date/Time Test Type Test Details Facility Name Feb 12, 2024 03:06 PM Consult Order [facility] Cons Mill Platform Supervisor's Choice [facility] Social History: Smoking Status (Most current) and Tobacco Use (All prior to encounter date) This section includes the most current, and the historical, smoking and tobacco- related health factors from the [place] facility where the Encounter took place. Current Smoking Status This section includes the most current smoking, or tobacco-related health factor, from the [place] facility where the Encounter took place. Date/Time Current Smoking Status Comment Facil ity Jan 01, 2024 08:30 AM VA-TOBACCO FORMER USER [facility] Tobacco Use History This section includes a history of the smoking, or tobacco-related health factors, that were collected on or before the date of the Encounter. The data comes from the [place] facility where the Encounter took place. Date/Time Smoking Status/Tobacco Use Comment F acility Jan 01, 2024 08:30 AM DC-TOBACCO QUIT 15 YRS OR MORE [facility] [place] [facility] Jan 29, 2023 09:44 AM VA-TOBACCO FORMER USER [facility] [place] [facility] Jan 29, 2023 09:44 AM VA-TOBACCO QUIT 15 YRS OR MORE [facility] [place] [facility] Dec 13, 2021 11:25 AM VA-TOBACCO FORMER USER [facility] [place] [facility] Dec 13, 2021 11:25 AM VA-TOBACCO QUIT 15 YRS OR MORE [facility] [place] [facility] Jan 02, 2021 02:07 PM VA-TOBACCO FORMER USER [facility] [place] [facility] Jan 02, 2021 02:07 PM VA-TOBACCO QUIT 15 YRS OR MORE [facility] [place] [facility] Feb 01, 2020 08:30 AM VA-TOBACCO FORMER USER [facility] [place] [facility] Feb 01, 2020 08:30 AM VA-TOBACCO QUIT 15 YRS OR MORE [facility] [place] [facility] Nov 16, 2018 02:39 PM VA-TOBACCO FORMER USER [facility] [place] [facility] Nov 16, 2018 02:39 PM VA-TOBACCO QUIT 15 YRS OR MORE [facility] [place] [facility] Nov 06, 2017 02:22 PM VA-TOBACCO FORMER USER [facility] [place] [facility] Nov 06, 2017 02:22 PM VA-TOBACCO QUIT 15 YRS OR MORE [facility] [place] [facility] Jan 07, 2017 09:30 AM LIFETIME NON-TOBACCO USER [facility] [place] [facility] Jan 08, 2016 09:06 AM QUIT TOBACCO USE > 7 YEARS AGO [facility] [place] [facility] Oct 10, 2014 11:16 AM QUIT TOBACCO USE > 7 YEARS AGO . [place] [facility] [place] [facility] Advance Directives: All historical and current Section Date Range: From patient's date of to the date document was created. This section includes ALL of a patient's completed or amended VA Advance and Rescinded Directives. The entries below indicate that a directive exists for the patient, but an actual copy is not included with this document. The data comes from all [place] facilities. Date Advance Directives Provider Source Dec 02, 2019 ADVANCE DIRECTIVE LI ZHAO [facility] Encounter Notes: All associated encounter notes This section contains the clinical notes associated to the Encounter. Date/Time Encounter Note(s) Provider Source Feb 09, 2024 12:00 AM NONVA NOTE: LOCAL TITLE: NON-VA HOSPITALIZATIONS/ER STANDARD TITLE: NONVA NOTE DATE OF NOTE: FEB 09, 2024 ENTRY DATE: MAR 11, 2024@13:07:55 AUTHOR: BISI MCKEON EXP COSIGNER: URGENCY: STATUS: COMPLETED VistA Imaging - Scanned Document SCANNED DOCUMENT SIGNATURE NOT REQUIRED Electronically Filed: 03/11/2024 by: BISI BRAMBILA [facility]
--- OUTSIDE RECORDS SUMMARY | 2024-03-11 19:49 | XMS_ITS | Patient Health Record ---
Author Organization [facility] Address [address] [place] [id number] Care Team Providers Care Housekeeper Supervisor Name Role Phone Cristinao Damico Primary Care Provider Un available Ozzie Azul Jr Unavailable [phone] ALLERGIES No Known Allergies REASON FOR REFERRAL [...] history of colon cancer (Z80.0) Active confirmed 337555081 Problem Long-term current use of high risk medication other than anticoagulant (Z79.899) Active confirmed 527162395 Problem Colon cancer screening (Z12.11) Active confirmed 794881423 Problem Encounter for other preprocedural examination (Z01.818) Active confirmed 108849389 Problem Long-term use of aspirin therapy (Z79.82) Active confirmed 417054238 Problem Diverticulosis of colon (K57.30) Active confirmed Diverticulosi s of colon (555725441) PLAN OF TREATMENT Future Test Test Name Order Date COLONOSCOPY 11/22/2015 COLONOSCOPY 11/21/2021 Insurance Providers Payer Name Payer Address Payer Phone Subscriber Number Group Number Insured Name Patient Relationship to Insured Coverage Start Date Coverage End Date [employer] [address] [place] [address] [id number] CRISTIANO FRANK Self - patient is the insured MEDICAL (GENERAL) HISTORY Medical History History ICD Code colonoscopy 01/29, tubular adenoma, five -year followup for family history Hearing loss hemorrhoids elevated cholesterol hypertension HSV infections diabetes type 2 Diastasis recti Surgical History Surgery Date(Month/Year) Bilateral inguinal herniorrhaphies left rotor cuff surgery
--- OUTSIDE RECORDS SUMMARY | 2024-03-11 19:49 | XMS_ITS ---
Author Organization [facility] Address [address] [place] [phone] Care Team Providers Care Trimming Machine Set Up Operator Name Role Phone Cristiano Damico Primary Care Provider Un available Ozzie Azul Jr Unavailable [phone] Encounters Encounter Location Date Provider Diagnosis [facility] [address] [place] [phone] 10/10/2022 Ozzie Azul Jr PLAN OF TREATMENT No Information
--- OUTSIDE RECORDS SUMMARY | 2024-03-11 19:49 | XMS_ITS ---
Author Name [facility] Organization [facility] [place] Address [address] [place] [address] Care Team Providers Care Head Strength And Conditioning Coach Name Role Phone CRISTIANO DECKER Primary Care [...] PART A Mar 16, 2010 PART A [id number] LOWELL FRANK JR PATIENT MEDICARE (WNR) MEDICARE (M) PART A Mar 16, 2010 PART A [id number] LOWELL FRANK JR PATIENT MEDICARE (WNR) MEDICARE (M) PART A Mar 16, 2010 PART A [id number] [phone] LOWELL FRANK JR PATIENT Selected Encounter This section includes the information on record at ID for the Encounter. Date/Time Encounter Type Encounter Description Reason Provider Source Jan 01, 2024 08:30 AM OFFICE O/P EST LOW 20 MIN PRIMARY CARE/MEDICINE ICD-10-CM E11.9 Type 2 diabetes mellitus without complications CRISELDA DECKER [facility] Encounter Template Text not used by ID Assessments - Encounter Diagnoses This section includes the primary and secondary diagnoses documented for the Encounter. Date/Time Primary/Secondary Diagnosis Diagnosis Name Provider Source Jan 01, 2024 08:57 AM PRIMARY Type 2 diabetes mellitus without complications [facility]ELDA DECKER [facility] Jan 01, 2024 08:57 AM SECONDARY Encounter for immunization LUIS ENRIQUE LOPEZ [place] [facility] [place] [facility] Jan 01, 2024 08:57 AM SECONDARY Family history of malignant neoplasm, unspecified [facility] [place] [facility] Jan 01, 2024 08:57 AM SECONDARY Psoriasis, unspecified [facility] Plan of Treatment: Future Appointments (+ 6 months) and Future Tests (+/- 45 days) The Plan of Treatment section includes future care activities for the patient from [facility]. This section includes future appointments and future orders which are active, pending or scheduled. Future Appointments This section includes appointments that were scheduled to occur 6 months from the date of the Encounter, up to a maximum of 20 appointments. The data comes from all ID treatment facilities. Appointment Date/Time Appointment Type Appointme nt Facility Name Jan 07, 2024 09:00 AM AMBULATORY - MEDICINE [facility] [place] [facility] Jan 18, 2024 08:00 AM AMBULATORY - REHAB MEDICIN E ID [facility] [place] [facility] Jan 20, 2024 10:30 AM AMBULATORY - MEDICINE [facility] [place] [facility] Feb 18, 2024 09:00 AM AMBULATORY - REHAB MEDICIN E ID [facility] [place] [facility] Mar 02, 2024 08:45 AM AMBULATORY - MEDICINE [facility] Active, Pending, and Scheduled Orders This section includes a listing of several types of active, pending, and scheduled orders, including clinic medications orders, diagnostic test orders, procedure orders and consult orders; where the start date of the order is 45 days before the date of the Encounter or 45 days after the date of theEncounter. The data comes from all ID treatment facilities. Test Date/Time Test Type Test Details Facility Name Feb 12, 2024 03:06 PM Consult Order [facility] Cons Marker Hand's Choice [facility] Lab Results: +/- 30 days of the encounter This section includes the Chemistry and Hematology Lab Results on record with ID for the patient. Radiology Reports and Pathology Reports are provided separately, in subsequent sections. Lab Results This section contains the Chemistry/Hematology Results that were resulted 30 days before or 30 daysafter the date of the Encounter. Date/Time Source Result Type Result - Unit Interpretation Reference Range Comment Dec 15, 2023 07:44 AM [facility] HEMOGLOBIN A1C PANEL [...] Provider: TANMAY DECKER F Report Released Date/Time: Oct 01, 2023 10:36 AM Reporting Lab: [address] [phone] Performing Lab: [address] [address] HEMOGLOBIN A1C 6.3 H 4.0-5.6 Dec 15, 2023 07:44 AM [facility] LIPID PANEL FASTING Specimen Type: SERUM No comment entered. Ordering Provider: TANMAY DECKER F Report Released Date/Time: Oct 01, 2023 10:36 AM Reporting Lab: [address] [address] Performing Lab: [address] [address] CHOLESTEROL 178 mg/dL TRIGLYCERIDE 148 mg/dL 0-150 LDL calculated 92 mg/dL 0-129 CHOL/HDL 3.2 HDL CHOLESTEROL 56 mg/dL 40-60 Dec 15, 2023 07:44 AM [facility] LIVER FUNCTION Specimen Type: SERUM No comment entered. Ordering Provider: TANMAY DECKER F Report Released Date/Time: Oct 01, 2023 10:36 AM Reporting Lab: [facility] [address] [facility] [address] Performing Lab: [address] [address] PROTEIN,TOTAL 6.7 g/dL 6.0-8.3 ALBUMIN 4.0 g/dL 3.5-5.0 ALKALINE PHOSPHATASE 55 U/L 40-150 AST 21 U/L 5-34 ALT 25 U/L BILIRUBIN, TOTAL 0.8 mg/dL 0.2-1.2 Dec 15, 2023 07:44 AM [facility] BASIC METABOLIC PANEL (fasting) Specimen Type: SERUM No comment entered. Ordering Provider: TANMAY DECKER F Report Released Date/Time: Oct 01, 2023 10:36 AM Reporting Lab: [facility] [address] [facility] [address] Performing Lab: [address] [address] UREA NITROGEN 16 mg/dL 7-25 GLUCOSE 127 mg/dL H 65-100 SODIUM 137 mmol/L 135-145 POTASSIUM 4.2 mmol/L 3.5-5.0 CHLORIDE 100 mmol/L 100-110 CO2 26 meq/L 20-30 CREATININE, Serum 1.00 mg/dL 0.50-1.40 eGFR(CKD-EPI 2020) 77 mL/min >60 Dec 15, 2023 07:44 AM [facility] MICROALBUMIN CREATININE RATIO PANEL Specimen Type: URINE No comment entered. Ordering Provider: TANMAY DECKER F Report Released Date/Time: Oct 01, 2023 10:36 AM Reporting Lab: [facility] [address] [facility] [address] Performing Lab: [address] [address] MICROALBUMIN/C REATININE RATIO 9.0 mg/g 0-29.9 MICROALBUMIN,Q UANTITATIVE 1.2 mg/dL RR UNAVAIL CREATININE URINE 133.78 mg/dL Vital Signs: All taken on the encounter date This section contains inpatient and outpatient Vital Signs collected on the date of the Encounter. Date/Time Temperature Pulse Blood Pressure Respiratory Rate SP02 Pain Height Weight Body Mass Index Source Jan 01, 2024 08:29 AM 97.8 94 126/78 16 96 0 173 30 [place] [facility] [place] [facility] Immunizations: All administered on the encounter date This section contains immunizations associated to the Encounter. Immunization Series Date Issued Reaction Comments COVID-19 (MODERNA), MRNA, LN P-S, PF, 50 MCG/0.5 ML (AGES 12+ YEARS) 1 Jan 01, 2024 INFLUENZA, HIGH-DOSE, TRIVALENT, PF Dec 31 Social History: Smoking Status (Most current) and Tobacco Use (All prior to encounter date) This section includes the most current, and the historical, smoking and tobacco- related health factors from the ID facility where the Encounter took place. Current Smoking Status This section includes the most current smoking, or tobacco-related health factor, from the ID facility where the Encounter took place. Date/Time Current Smoking Status Comment Supriya ity Jan 01, 2024 08:30 AM VA-TOBACCO FORMER USER ID [facility] [facility] Tobacco Use History This section includes a history of the smoking, or tobacco-related health factors, that were collected on or before the date of the Encounter. The data comes from the ID facility where the Encounter took place. Date/Time Smoking Status/Tobacco Use Comment F acility Jan 01, 2024 08:30 AM VA-TOBACCO QUIT 15 YRS OR MORE [facility] [place] [facility] Jan 29, 2023 09:44 AM VA-TOBACCO FORMER USER [facility] [place] [facility] Jan 29, 2023 09:44 AM VA-TOBACCO QUIT 15 YRS OR MORE [facility] [place] [facility] Dec 13, 2021 11:25 AM VA-TOBACCO FORMER USER [facility] [place] [facility] Dec 13, 2021 11:25 AM VA-TOBACCO QUIT 15 YRS OR MORE ID [facility] [place] [facility] Jan 02, 2021 02:07 PM VA-TOBACCO FORMER USER [facility] [place] [facility] Jan 02, 2021 02:07 PM VA-TOBACCO QUIT 15 YRS OR MORE [facility] [place] [facility] Feb 01, 2020 08:30 AM VA-TOBACCO FORMER USER [facility] [place] [facility] Feb 01, 2020 08:30 AM VA-TOBACCO QUIT 15 YRS OR MORE [facility] [place] [facility] Nov 16, 2018 02:39 PM VA-TOBACCO FORMER USER [facility] [place] [facility] Nov 16, 2018 02:39 PM VA-TOBACCO QUIT 15 YRS OR MORE [facility] [place] [facility] Nov 06, 2017 02:22 PM VA-TOBACCO FORMER USER [facility] [place] [facility] Nov 06, 2017 02:22 PM VA-TOBACCO QUIT 15 YRS OR MORE [facility] [place] [facility] Jan 07, 2017 09:30 AM LIFETIME NON-TOBACCO USER [facility] [place] [facility] Jan 08, 2016 09:06 AM QUIT TOBACCO USE > 7 YEARS AGO [facility] [place] [facility] Oct 10, 2014 11:16 AM QUIT TOBACCO USE > 7 YEARS AGO . [place] [facility] [place] [facility] Advance Directives: All historical and current Section Date Range: From patient's date of to the date document was created. This section includes ALL of a patient's completed or amended ID Advance and Rescinded Directives. The entries below indicate that a directive exists for the patient, but an actual copy is not included with this document. The data comes from all ID facilities. Date Advance Directives Provider Source Dec 02, 2019 ADVANCE DIRECTIVE LI ZHAO ID [facility] [place] [facility] Encounter Notes: All associated encounter notes This section contains the clinical notes associated to the Encounter. Date/Time Encounter Note(s) Provider Source Jan 01, 2024 08:49 AM PHYSICIAN GLOBAL PROJECT MANAGER NOTE: LOCAL TITLE: [place] NOTE STANDARD TITLE: PHYSICIAN GLOBAL PROJECT MANAGER NOTE DATE OF NOTE: JAN 01, 2024@08:49 ENTRY DATE: JAN 01, 2024@08:49:41 AUTHOR: CRISTIANO DECKER COSIGNER: URGENCY: STATUS: COMPLETED CC/HPI/A/P: 78 year old MALE here in follow-up for; htn. at goal on meds DM, also very well controlled. Dyslipidemia, at target on statin. [place] Mar-June, we plan around. He uses [facility]. FH of melanoma, he will go to Derm and book f/u. Review of systems: Patient reports no changes from [facility], in meds or any admissions. Active problems - Computerized Problem List is the source for the followin. Exposure to potentially hazardous substance ([facility] [id number]) Entered automatically through [employer] Problem List documentation program 2. Diastasis recti [...] BY MOUTH ONCE ACTIVE (S) DAILY FOR BLOOD PRESSURE/HEART 9) METFORMIN HCL [...] ONE CAPSULE BY MOUTH AT ACTIVE BEDTIME 97.8 F [36.6 C] (01/01/2024 08:29) 94 (01/01/2024 08:29) 16 (01/01/2024 08:29) 126/78 (01/01/2024 08:29) 0 (01/01/2024 08:29) 64.25 in [163.2 cm] (10/10/2014 11:10) 173 lb [78.47 kg] (01/01/2024 08:29) BMI: 29.5 Neuro: Alert and oriented times three, grossly nonfocal, nasolabial folds intact. Recent labs reviewed with patient today:yes /es/ Cristiano Decker PA-C STAFF PHYSICIAN GLOBAL PROJECT MANAGER Signed: 01/01/2024 08:57 CRISTIANO DECKER [facility] [facility] Jan 01, 2024 08:30 AM PREVENTIVE MEDICINE NURSING NOTE: LOCAL TITLE: CLINICAL REMINDERS/NURSING STANDARD TITLE: PREVENTIVE MEDICINE NURSING NOTE DATE OF NOTE: JAN 01, 2024@08:30 ENTRY DATE: JAN 01, 2024@08:30:32 AUTHOR: RAYSHAWN LOPEZIGNRACHEL: URGENCY: STATUS: COMPLETED CLINICAL REMINDERS/NURSING Has ADDENDA Tobacco Use Screening: The patient is a former tobacco user. The patient quit fifteen or more years ago. Alcohol Use Screen (AUDIT-C): Alcohol Screen: SCREEN FOR ALCOHOL (AUDIT-C) An alcohol screening test (AUDIT-C) was negative (score=2). 1. How often did you have a drink containing alcohol in the past year? Consider a drink to be a 12 ounce can or bottle of regular beer, 8 ounces of malt liquor, a 5 ounce glass of table wine, or a 1.5 ounce shot of liquor (like scotch, gin, or vodka). Two to four times a month 2. How many drinks containing alcohol did you have on a typical day when you were drinking in the past year? One or two drinks 3. How often did you have six or more drinks on one occasion in the past year? Never /mary kate/ RAYSHAWN LOPEZ LPN Signed: 01/01/2024 08:31 01/01/2024 ADDENDUM STATUS: COMPLETED Influenza Immunization: Influenza, High-Dose, Trivalent, Preservative Free (Fluzone-Syringe) Administered: INFLUENZA, HIGH-DOSE, TRIVALENT, PF Date Administered: Jan 01, 2024 08:30 Series: Booster Technical Delivery Manager: SANOFI PASTEUR Lot: [id number] Exp Date: Sep 12, 2024 ND: [id number] Admin Route/Site: INTRAMUSCULAR/RIGHT DELTOID Dosage: 0.5mL Vaccine Information Statement(s): INFLUENZA(FLU) VACC(INACTIVATED OR RECOMBINANT)VIS Oct 19, 2020 (IRISH) Order By: Policy Administered By: Rayshawn Lopez The Influenza Vaccine Information Statement (VIS) was reviewed with the patient/caregiver which lists the benefits and risks of the vaccine and the risks of not receiving the Influenza vaccine. The patient/caregiver denied any prior severe reaction to this vaccine or its components or a severe allergic reaction, such as anaphylaxis, to any vaccine or any injectable therapy. The patient/caregiver gave verbal consent to receive the vaccine. COVID-19 Immunization: Moderna Monovalent (Spikevax) Administered: COVID-19 (MODERNA), MRNA, LNP-S, PF, 50 MCG/0.5 ML (AGES 12 + YEARS) Date Administered: Jan 01, 2024 08:30 Series: Series 1 Technical Delivery Manager: [employer]. Lot: [id number] Exp Date: August 08, 2024 ND: [id number] Admin Route/Site: INTRAMUSCULAR/RIGHT DELTOID Dosage: 0.3mL Vaccine Information Statement(s): COVID-19 MRNA VACCINE (12+ YRS) VACCINE VIS Jan 01, 2023 (IRISH) Order By: Policy Administered By: Rayshawn Lopez Vaccine administered without complications. /mary kate/ RAYSHAWN LOPEZ LPN Signed: 01/01/2024 08:38 RADHA LOPEZ [facility]
== END 2024-03-11 19:45 | disposition home or self-care (01) ==
LOC: HO.MRI 19:44
PROVIDERS: PCP Physician Assistant; Visit Provider Physician Assistant
DX: S46.002A Unspecified injury of muscle(s) and tendon(s) of the rotator cuff of left shoulder, initial encounter (principal)
CPT/HCPCS: 73221

== ENCOUNTER → 2024-04-15 11:09 | Outpatient (BNVA) | payer OTHER, SELFPAY | PROVIDERS: PCP Physician Assistant; Visit Provider Orthopaedic Surgery | DX: M12.812 Other specific arthropathies, not elsewhere classified, left shoulder (principal); R20.8 Other disturbances of skin sensation; E11.9 Type 2 diabetes mellitus without complications | CPT/HCPCS: 20610; 99212; J0665; J1100; J2003 ==